=== PATIENT | female | born 1990 | race Caucasian/White ===

== ENCOUNTER 2025-05-01 07:24 | Emergency (ER) | payer BC, SELFPAY ==
[2025-05-01 07:24] VITALS: BP 122/109; PULSE 94; RESP 18; TEMP 36.9; O2SAT 100; BMI 29.9
--- NOTE | 2025-05-01 07:38 | ED.VIS.FEGU ---
HPI HPI - Female History of Present Illness Chief Complaint: Vag Bleeding Detail of Chief Complaint: Mild cramping. Informant: patient and spouse/S.O. Pain Pain: Positive for Pelvic Pain Onset: Today Timing: Intermittent Quality: Positive for Cramping Current Severity: Mild Maximum Severity: Mild Bleeding Issue: Positive for Vaginal bleeding and Passing clots Onset: Today Context: Gradual Onset Timing: Intermittent Associated Symptoms Associated Symptoms: Negative for Dysuria or Frequency Test: Positive Sexually: Positive for Active Control: No control P: 0 Ab: 1 Narrative Narrative: 34-year-old female Ab1 with that being a recent miscarriage around March 25. Sees the [facility] group locally. Blood type is a positive. States that she has recently started having vaginal bleeding small clots with maybe passage of tissue. Denies any fever. Mild pelvic cramping with the bleeding. 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 No prior abdominal surgeries. No dysuria. Prior similar symptoms: Yes Recent Illness/Hospitalization: No PFSH PFSH Medical History no medical history no medical history Home Medications ?Medication ?Instructions ?Recorded ?Last Taken ?Type desogestrel 0.15 mg-ethinyl 1 tab PO DAILY #84 tabs 02/14/18 Unknown Rx estradiol 0.03 mg tablet ([place]) Allergy/AdvReac Type Severity Reaction Status Date / Time No Known Allergies Allergy Verified 05/01/25 07:26 Family History no significant family his Surgical History no surgical history Social History Smoking Status: Never smoker ROS ROS ED ROS Narrative Pelvic cramping. Bleeding. Constitutional Constitutional ED: Denies chills or fever(s) Eyes Eyes: Denies blurry vision ENT ENT ED: Denies ear pain Cardiovascular Cardiovascular: Denies chest pain Respiratory/Chest Respiratory/Chest: Denies cough or dyspnea Gastrointestinal Gastrointestinal: Reports diarrhea; Denies abdominal pain, constipation, melena, nausea or vomiting Genitourinary Genitourinary ED: Denies dysuria or hematuria Musculoskeletal Musculoskeletal: Denies arthralgias Integumentary Denies abscess Neurologic Neurologic: Denies headache(s) Psychiatric Psychiatric: Denies anxiety or depression Endocrine Endocrinology: Denies heat intolerance Hematologic/Lymphatic Hematologic/Lymphatic: Denies easy bleeding, easy bruising or lymphadenopathy Allergic/Immunologic Allergic/Immunologic ED: Denies mouth swelling, tongue swelling or urticaria EXAM Physical Exam Narrative Exam Narrative: 34-year-old female sitting upright in bed no acute distress. at bedside. Vital signs are stable afebrile. H EENT exam pupils round react to light. Moist mucous membranes. Neck nontender. Back nontender. Lungs clear to auscultation bilaterally. Heart regular rhythm rate about 94 no murmur. Chest wall ribs nontender. Abdomen soft, nontender, nondistended, normal bowel sounds without peritoneal signs. No tenderness. Moving all 4 extremities. Normal strength. Nontender no edema. Neurologically she is awake alert. Answering questions following commands. No focal motor deficits Const Vital Signs: 05/01/25 07:24 05/01/25 09:24 Temperature 98.4 F Temperature Source Oral Pulse Rate 94 63 Respiratory Rate 18 16 Blood Pressure 122/109 H 105/61 Blood Pressure Mean 113 75 Pulse Ox 100 100 Oxygen Delivery Method Room Air Room Air MDM MDM MDM Narrative Medical decision making narrative: 34-year-old female Ab1 with that being a miscarriage around March 25 a little over a month ago. Reportedly has a blood type of a positive from labs she had done at the [facility]. Today is having spotting small clots and passage of tissue. No fever. She does not feel ill. Pelvic exam will be done and ultrasound and labs. Repeat exam around 8:55 AM patient doing well. With a nurse present in the room that pelvic exam and bimanual exam. External exam is unremarkable. Pelvic exam with a speculum showed a small amount of older blood dark blood in the vaginal vault. Currently no active bleeding. Os closed. No lesions. No discharge. On bimanual exam she had no significant uterine or adnexal tenderness and no obvious mass. No signs of endometritis. We discussed her lab test. They should be taking her to ultrasound soon. Repeat exam patient is doing well at around 10:20 AM. Discussed her ultrasound results with her and her . They are comfortable being discharged home. Follow-up with her MANAGER BAKERY. Motrin and Tylenol for any discomfort. Return if she is feeling worse or develops a fever. History & Record Review Discussion w/independent historian: Patient and Family Additional record(s) reviewed:: Prior labs Lab Data Attestation: I reviewed the patient's lab results. Lab results narrative: CBC unremarkable. White count of 5.1. H&H 13.9 and 41. Platelets 291. Chemistries unremarkable gap 10. Normal BUN and creatinine. Glucose 93. Serum test negative. Pelvic ultrasound shows a small amount of fluid in the endometrial canal. Small right ovarian cyst of 3 cm. No retained products. Labs: Laboratory Results - last 24 hr 05/01/25 07:46 WBC 5.1 RBC 4.52 Hgb 13.9 Hct 41.9 MCV 92.7 MCH 30.8 MCHC 33.2 RDW Std Deviation 39.9 RDW Coeff of Mirela 11.8 Plt Count 291 MPV 8.5 Immature Gran % (Auto) 0.400 Neut % (Auto) 60.8 Lymph % (Auto) 27.7 Ashley % (Auto) 7.3 Eos % (Auto) 3.2 Baso % (Auto) 0.6 Absolute Neuts (auto) 3.1 Absolute Lymphs (auto) 1.40 Nucleated RBC % 0 Sodium 138 Potassium 3.8 Chloride 104 Carbon Dioxide 23.7 Anion Gap 10 BUN 14 Creatinine 0.75 Estim Creat Clear Calc 106.60 Est GFR (MDRD) Non-Af 107 BUN/Creatinine Ratio 18.6 Glucose 93 Calcium 8.7 Serum , Qual NEGATIVE Radiography Diagnostic Testing: Clinical Impression(s) from Imaging Studies Transvaginal US 05/01/25 08:36 IMPRESSION: Small amount of fluid in the endocervical canal. 3.2 cm 3.4 cm x 3.2 cm right ovarian cyst. Reading Location: [place] [id number] Discharge Plan Triage Chief Complaint: Vag Bleeding ED Provider: Petey Capone Dx/Rx/DC Orders Clinical Impression: Vaginal bleeding, Hx of one miscarriage Prescriptions: No Action desogestrel-ethinyl estradiol [[place]] 0.15-0.03 mg tablet 1 tab PO DAILY Qty: 84 1RF Primary Care Provider: Vonda Nicholson Referrals: Gisela Branch MD [Med Staff - Active Staff, Obstetrics-Gynecology (OBGYN)] - 3-5 Days if not improving NOT,DEFINED [Non-Staff, None] Activity Restrictions/Additional Instructions: Motrin and Tylenol for pain. Follow-up with your MANAGER BAKERY. Your blood work looked good today. Your test was negative. Your ultrasound looked good with a small right ovarian cyst. Print Language: Tajik Disposition Disposition: Home, Self Care
[2025-05-01 07:53] LABS: Hematocrit 41.9 % (37-47); Hemoglobin 13.9 g/dL (12.0-15.0); Immature Granulocytes Count 0.020 X10^3/uL (0.0-0.0); Mean Corp Hgb Conc 33.2 g/dL (32-36); Mean Corpuscular Volume 92.7 fL (81-99); Mean Platelet Vol. 8.5 fl (6.2-12.0); NRBC Flagged by Analyzer 0 % (0-5); Platelet Count 291 K/mm3 (150-450); RBC Distribution Width CV 11.8 % (11.6-14.6); RBC Distribution Width SD 39.9 fl (35.1-43.9); Red Blood Count 4.52 M/mm3 (4.2-5.4); White Blood Count 5.1 K/mm3 (4.4-11.0)
--- OUTSIDE RECORDS SUMMARY | 2025-05-01 07:55 | XMS RPT_ITS | CCD ---
Author Organization [facility] CliniSymi Care Team Providers Care Shipping Specialist Name Role Phone Sylvie CHIEF OPERATOR SYNTHESIS, Ida Valderrama Unavailable [phone] Ida Mercer Attending Unavailable Jhonny Hernandes Referring Unavailable Sandip CHRISTENSEN, Yara Primary Care Provider Sandip CHRISTENSEN, Yara Primary Care Provider Sandip CHRISTENSEN, Yara Primary Care Provider Azalea Infante PA-C Unavailable Older DIRECTOR OF MATH.SENIOR SQL DATABASE DEVELOPER, Opal Unavailable Janet Lewis PA-C Unavailable SANDIP CHRISTENSEN, DR YARA Menjivar Primary Care Physician DR YARA OROPEZA MD Primary Care Unavailabl e SYDNI RUGGIERO Attending Unavailable GANTA, YARA Primary Care Unavailable BEBETO, GERMAINE Referring Unavailable GANTA, YARA Primary Care Unavailable BEBETO, GERMAINE Referring Unavailable GANTA, YARA Primary Care Unavailable TERESAANGELA NEGRON Attending Unavailable GANTA, YARA Primary Care Unavailable TEREAS, ANGELA Referring Unavailable GANTA, YARA Primary Care Unavailable TERESA, ANGELA Referring Unavailable GANTA, YARA Referring Unavailable GANTA, YARA Primary Care Unavailable GANTA, YARA Attending Unavailable GANTA, YARA Primary Care Unavailable GANTA, YARA Attending Unavailable GANTA, YARA Primary Care Unavailable TAMARA HOFFMAN Attending Unavailable GANTA, YARA Primary Care Unavailable GANTA, YARA Primary Care Unavailable GANTA, YARA Attending Unavailable BEBETO, GERMAINE Attending Unavailable GANTA, YARA Primary Care Unavailable BEBETO, GERMAINE Referring Unavailable GANTA, YARA Primary Care Unavailable BEBETO, GERMAINE Referring Unavailable GANTA, YARA Primary Care Unavailable Medications Current Medications Medication Drug Class(es) Dates Sig (Normalized) Sig (Original) benzonatate 100 mg oral capsule (1 source) Non-narcotic Antitussive Start: 08-10-2024 take 1 capsule by mouth every eight hours as needed benzonatate (TESSALON PERLE) 100 mg capsule Take 1 capsule by mouth three times a day as needed. 30 capsule 1 08/10/2024 Active benzoyl peroxide 0.05 mg/mg / clindamycin phosphate 0.012 mg/mg topical gel (4 sources) Lincosamide Antibacterial Start: 12-21-2023 Clindamycin-Benzo yl Peroxide 1.2 %(1 % base) -5 % gel Apply once daily to all areas of acne at bedtime. will bleach clothes until dry. 12/21/2023 Active cephalexin 500 mg oral capsule (1 source) Cephalosporin Antibacterial Start: 12-28-2022 End: 01-02-2023 take 1 capsule by mouth twice daily cephALEXin (KEFLEX) 500 mg capsule Take 1 capsule by mouth twice daily for 5 days. 10 capsule 0 12/28/2022 01/02/2023 Active Comment on above: Take 1 capsule by [facility] twice daily for 5 days. loratadine 10 mg oral tablet (1 source) Start: 08-10-2024 take 1 tablet by mouth once daily loratadine (CLARITIN) 10 mg tablet Take 1 tablet by mouth once daily. 30 tablet 11 08/10/2024 Active sertraline 50 mg oral tablet (14 sources) Serotonin Reuptake Inhibitor Start: 07-16-2024 take 1 tablet by mouth once daily sertraline (ZOLOFT) 50 mg tablet Take 1 tablet by mouth once daily. 90 tablet 1 07/16/2024 Active Start: 02-16-2017 ZOLOFT 25 MG T ABS SERTRALINE HCL [id number] Ida Mercer CHIEF OPERATOR SYNTHESIS Start: 02-16-2017 ZOLOFT 50 MG T ABS SERTRALINE HCL [id number] Ida Mercer CHIEF OPERATOR SYNTHESIS triamcinolone acetonide 1 mg/ml topical cream (2 sources) Corticosteroid Start: 10-25-2021 End: 11-04-2021 triamcinolone acetonide (KENALOG) 0.1 % cream Indications: Rhus dermatitis Apply 1 application to affected area three times daily for 10 days. Apply sparingly to area for rash/itching. 80 g 0 10/25/2021 11/04/2021 Active Comment on above: Apply 1 application to affected area three times daily for 10 days. Apply sparingly to area for rash/itching. Completed/Discontinued Medications Medication Drug Class(es) Dates Sig (Normalized) Sig (Original) azelaic acid 0.15 mg/mg topical gel (20 sources) Start: 10-01-2022 End: 07-16-2024 Azelaic Acid 15 % gel Indications: Acne, unspecified acne type Apply to the affected areas once daily 50 g 2 10/01/2022 07/16/2024 Discontinued Start: 08-08-2019 End: 10-01-2022 Azelaic Acid 15 % gel Apply to the affected areas once daily 0 08/08/2019 10/01/2022 Discontinued Comment on above: Apply to the affecte d areas once daily DESOGESTREL-ETHINYL ESTRADIOL (19 sources) Progestin, Estrogen Start: 02-16-2017 take 1 tablet by mouth once daily EMOQUETTE 0.15-30 MG-MCG TABS One tablet by mouth daily DESOGESTREL-ETHINYL ESTRADIOL [id number] Ida Mercer CHIEF OPERATOR SYNTHESIS Start: 02-16-2017 take 1 tablet by sander th once daily EMOQUETTE 0.15-30 MG-MCG TABS One tablet by mouth daily DESOGESTREL-ETHINYL ESTRADIOL [id number] Ida Mercer CHIEF OPERATOR SYNTHESIS Start: 02-16-2017 take 1 tablet by sander th once daily EMOQUETTE 0.15-30 MG-MCG TABS One tablet by mouth daily DESOGESTREL-ETHINYL ESTRADIOL [id number] Ida Mercer CHIEF OPERATOR SYNTHESIS Start: 01-25-2017 take 1 tablet by sander th once daily APRI 0.15-30 MG-MCG TABS One tablet by mouth daily DESOGESTREL-ETHINYL ESTRADIOL [id number] Ida Mercer CHIEF OPERATOR SYNTHESIS Start: 01-25-2017 End: 02-16-2017 take 1 tablet by mouth once daily APRI 0.15-30 MG-MCG TABS One tablet by mouth daily DESOGESTREL-ETHINYL ESTRADIOL [id number] Ida Mercer CHIEF OPERATOR SYNTHESIS Start: 01-25-2017 End: 02-16-2017 take 1 tablet by mouth once daily APRI 0.15-30 MG-MCG TABS One tablet by mouth daily DESOGESTREL-ETHINYL ESTRADIOL [id number] Ida Mercer CHIEF OPERATOR SYNTHESIS Start: 01-25-2017 take 1 tablet by sander th once daily APRI 0.15-30 MG-MCG TABS One tablet by mouth daily DESOGESTREL-ETHINYL ESTRADIOL [id number] Ida Mercer CHIEF OPERATOR SYNTHESIS doxycycline hyclate 20 mg oral tablet (20 sources) Tetracycline-class Drug Start: 02-07-2023 End: 07-16-2024 take 1 tablet by mouth twice daily doxycycline 20 mg tablet Take 1 tablet by mouth twice daily. Ordered by dermatology 02/07/2023 07/16/2024 Discontinued Start: 03-27-2020 End: 06-18-2023 take 1 tablet by mouth once daily doxycycline 20 mg tablet Take 1 tablet by mouth once daily. 90 tablet 3 06/18/2022 06/18/2023 Active Comment on above: Take 1 tablet by sander once daily. Take 1 tablet by sander twice daily. Ordered by dermatology 21 day ethinyl estradiol 0.539660 mg/hr / etonogestrel 0.005 mg/hr vaginal system (5 sources) Progestin, Estrogen Start: 1 End: 3 Etonogestrel-Ethinyl Estradiol (NUVARING) 0.12-0.015 mg/24 hr vaginal ring Use 1 Each vaginally as directed. 1 Each 3 04/03/2021 06/18/2022 Discontinued Comment on above: Use 1 Each vaginally as directed. FLUoxetine 20 mg oral capsule (18 sources) Serotonin Reuptake Inhibitor Start: 3 End: 5 take 1 capsule by mouth once daily FLUoxetine (PROZAC) 20 mg capsule Take 1 capsule by mouth once daily. 90 capsule 3 02/07/2023 07/16/2024 Discontinued Start: 07-30-2022 take 1 capsule by mo sch once daily FLUoxetine (PROZAC) 20 mg capsule Take 1 capsule by mouth once daily. 30 capsule 5 07/30/2022 Active Start: 06-18-2022 End: 07-30-2022 take 1 capsule by mouth once daily FLUoxetine (PROZAC) 10 mg capsule Take 1 capsule by mouth once daily. 30 capsule 5 06/18/2022 07/30/2022 Discontinued Comment on above: Take 1 capsule by mo [facility] once daily. ivermectin 10 mg/ml topical cream (20 sources) Antiparasitic, Pediculicide Start: 1 End: 5 SOOLANTRA 1 % 06/18/2020 08/10/2024 Discontinued multivitamin tablet (5 sources) Start: 1 End: 3 take 1 tablet by mouth once daily multivitamin tablet Indications: Annual physical exam Take 1 tablet by mouth once daily. 0 04/03/2021 06/18/2022 Discontinued Start: 04-03-2021 take 1 tablet by sander once daily multivitamin tablet Indications: Annual physical exam Take 1 tablet by mouth once daily. 0 04/03/2021 Active Comment on above: Take 1 tablet by sander th once daily. predniSONE 10 mg oral tablet (7 sources) Start: 01-20-2024 End: 08-10-2024 predniSONE (DELTASONE) 10 mg tablet Take 4 tabs daily for 3 days, then 2 tabs daily for 3 days, then 1 tab daily for 3 days with food. 21 tablet 01/20/2024 08/10/2024 Discontinued Start: 11-19-2023 End: 11-26-2023 take 4 tablets by mouth once daily, then take 2 tablets by mouth once daily, then take 1 tablet by mouth once daily predniSONE (DELTASONE) 10 mg tablet Indications: Contact dermatitis due to plant Take 4 tablets by mouth once daily for 3 days, THEN 2 tablets once daily for 3 days, THEN 1 tablet once daily for 1 day. Take with food.. 19 tablet 0 11/19/2023 11/26/2023 Active Start: 10-25-2021 End: 11-06-2021 predniSONE (DELTASONE) 10 mg tablet Indications: Rhus dermatitis Take 4 tabs daily x 3 days, then 3 tabs x 3 days, 2 tabs x 3 days, then 1 tab x3 days with food. 30 tablet 0 10/25/2021 11/06/2021 Active Comment on above: Take 4 tabs daily x 3 days, then 3 tabs x 3 days, 2 tabs x 3 days, then 1 tab x3 days with food. spironolactone 50 mg oral tablet (20 sources) Aldosterone Antagonist Start: 08-08-19 End: 07-16-19 25 take 1 tablet by mouth once daily spironolactone (ALDACTONE) 50 mg tablet Take 1 tablet by mouth once daily. 90 tablet 3 06/18/2022 07/16/2024 Discontinued Comment on above: Take 1 tablet by sander once daily. Problems Active Problems Problem Classification Problem Date Documented Date Episodic/Chronic Abdominal pain (2 sources) Pain in female pelvis; Translations: [Pelvic and perineal pain] 07-22-2023 Episodic Allergic reactions (2 sources) Contact dermatitis due to Genus Toxicodendron; Translations: [Unspecified contact dermatitis due to plants, except food] Episodic Anxiety disorders (20 sources) Mixed anxiety and depressive disorder; Translations: [Anxiety disorder, unspecified] Onset: 07-16-2015 08-18-2016 Chronic Asthma (20 sources) Asthma; Translations: [Unspecified asthma, uncomplicated] Onset: 11-29-2011 11-29-2011 Chronic Immunizations and screening for infectious disease (1 source) Tuberculosis screening status; Translations: [Encounter for screening for respiratory tuberculosis] Episodic Malaise and fatigue (1 source) Fatigue; Translations: [Other fatigue] 08-08-2023 Episodic Menstrual disorders (9 sources) Irregular periods; Translations: [Mid-cycle bleeding] Onset: 02-16-2017 02-16-2017 Chronic Mood disorders (1 source) Moderate major depression, single episode; Translations: [Major depressive disorder, single episode, moderate] 08-10-2024 Chronic Nonspecific chest pain (2 sources) Chest pain; Translations: [Chest pain, unspecified] Onset: 02-19-2025 Episodic Other aftercare (3 sources) Patient encounter status; Translations: [Other shelter (current) drug therapy] Episodic Other circulatory disease (20 sources) Raynaud's phenomenon; Translations: [Raynaud's syndrome without gangrene] Onset: 05-05-2019 05-05-2019 Chronic Other complications of (1 source) with inconclusive viability, not applicable or unspecified; Translations: [Encounter to determine viability of , single or unspecified fetus ([facility])] Onset: 03-23-2025 Episodic Other complications of (1 source) Missed ; Translations: [Missed (HCC)] Onset: 03-21-2025 Episodic Other infections; including parasitic (1 source) History of human papilloma virus infection; Translations: [Personal history of other infectious and parasitic diseases] 07-22-2023 Episodic Other and delivery including normal (3 sources) Normal ; Translations: [Encounter for supervision of normal , unspecified, unspecified trimester] Onset: 02-19-2025 Episodic Other skin disorders (4 sources) Acne; Translations: [Acne, unspecified] Episodic Other skin disorders (1 source) Eruption; Translations: [Rash and other nonspecific skin eruption] 01-20-2024 Episodic Other upper respiratory disease (20 sources) Allergic rhinitis; Translations: [Allergic rhinitis, unspecified] Onset: 11-29-2011 11-29-2011 Chronic Other upper respiratory infections (1 source) Acute upper respiratory infection; Translations: [Acute upper respiratory infection, unspecified] 08-10-2024 Episodic Skin and subcutaneous tissue infections (1 source) Paronychia of finger of right hand; Translations: [Cellulitis of right finger] 12-28-2022 Episodic Spondylosis; intervertebral disc disorders; other back problems (1 source) Low back pain; Translations: [Low back pain, unspecified back pain laterality, unspecified chronicity, unspecified whether sciatica present] Episodic Spontaneous (1 source) Complete or unspecified spontaneous without complication; Translations: [SAB (spontaneous ) ([facility])] Onset: 03-28-2025 Episodic Unclassified (4 sources) Cervical smear biopsy taken ; Translations: [Encounter for screening for malignant neoplasm of cervix] Onset: 02-16-2017 02-16-2017 Unclassified (4 sources) Venereal disease screening ; Translations: [Encounter for screening for infections with a predominantly sexual mode of transmission] Onset: 02-16-2017 02-16-2017 Unclassified (4 sources) Gynecologic examination ; Translations: [Encounter for gynecological examination (general) (routine) without abnormal findings] Onset: 02-16-2017 02-16-2017 Unclassified (1 source) No current problems or disability 01-25-2017 Unclassified (1 source) APPOINTMENT CANCELLED Viral infection (2 sources) Viral disease; Translations: [Viral infection, unspecified] Episodic Past or Other Problems Problem Classification Problem Date Documented Da te Episodic/Chronic Other aftercare (1 source) Other termite control service representative (current) drug therapy; Translations: [Medication management] Onset: 05-29-2024 Episodic Other lower respiratory disease (8 sources) Cough; Translations: [Cough] Onset: 08-07-2007 Resolved: 08-18-2016 08-18-2016 Episodic Ovarian cyst (20 sources) Hemorrhagic cyst of ovary; Translations: [Unspecified ovarian cyst, unspecified side] Onset: 07-30-2020 07-30-2020 Episodic Results Test Name Value Interpretation Reference Range Facility B-HCG SerPl-aCncon 5 HCG.beta subunit Qn 300.9 m[IU]/mL High <5.0 C [facility] Comment on above: Order Comment: Speci men Type: BLOOD SPECIMENOrdering Facility: [facility] Address: [address] [place] [address] Result Comment: CELIA TITATIVE HCG NORMAL RANGES Weeks of Gestation (Weeks Since LMP) 3 Weeks (5.8-71.2 mIU/mL) 4 Weeks (9.5-750 mIU/mL) 5 Weeks (217-7138 mIU/mL) 6 Weeks (158-90251 mIU/mL) 7 Weeks (3697-434745 mIU/mL) 8 Weeks (79607-140679 mIU/mL) 9 Weeks (32063-275486 mIU/mL) 10 Weeks (25905-312479 mIU/mL) 12 Weeks (94799-172566 mIU/mL) Referenced to 4th IS of [facility] Performed By: #### 2 1198-7 ####[facility] LABCLIA [id number] [place] [address] [place] B-HCG SerPl-aCncon 5 HCG.beta subunit Qn 639.2 m[IU]/mL High <5.0 C [facility] Comment on above: Order Comment: Speci men Type: BLOOD SPECIMENOrdering Facility: [facility] Address: [address] [place] [address] Result Comment: CELIA TITATIVE HCG NORMAL RANGES Weeks of Gestation (Weeks Since LMP) 3 Weeks (5.8-71.2 mIU/mL) 4 Weeks (9.5-750 mIU/mL) 5 Weeks (217-7138 mIU/mL) 6 Weeks (158-97491 mIU/mL) 7 Weeks (3697-988761 mIU/mL) 8 Weeks (12968-110114 mIU/mL) 9 Weeks (65785-660931 mIU/mL) 10 Weeks (24322-576385 mIU/mL) 12 Weeks (43779-379855 mIU/mL) Referenced to 4th IS of [facility] Performed By: #### 2 1198-7 ####[facility] LABCLIA [id number] [place] [address] [place] B-HCG [facility] 5 HCG.beta subunit Qn 5111.0 m[IU]/mL High <5.0 [facility] Comment on above: Order Comment: Speci men Type: BLOOD SPECIMENOrdering Facility: [facility] Address: [address] [place] [address] Result Comment: CELIA TITATIVE HCG NORMAL RANGES Weeks of Gestation (Weeks Since LMP) 3 Weeks (5.8-71.2 mIU/mL) 4 Weeks (9.5-750 mIU/mL) 5 Weeks (217-7138 mIU/mL) 6 Weeks (158-44900 mIU/mL) 7 Weeks (3697-112208 mIU/mL) 8 Weeks (97428-492625 mIU/mL) 9 Weeks (18856-919109 mIU/mL) 10 Weeks (36736-090297 mIU/mL) 12 Weeks (39377-813818 mIU/mL) Referenced to 4th IS of NIBSC Performed By: #### 2 1198-7 ####[facility] LABCLIA [id number] [place] [address] [place] TYPE + SCREEN PRENATALon ABO A Normal [facility] Comment on above: Order Comment: Speci men Type: BLOOD SPECIMENOrdering Facility: [facility] Address: [address] [place] [address] Performed By: #### T SPN ####[facility] LABCLIA [id number] [address] OF [place] Rh Nom (Bld) Positive Normal [facility] Comment on above: Order Comment: Speci men Type: BLOOD SPECIMENOrdering Facility: [facility] Address: [address] [place] [address] Performed By: #### T SPN ####[facility] LABCLIA [id number] [address] TYPE AND SCREEN EXPIRATION 03/27/2025 00:59 Normal [facility] Comment on above: Order Comment: Speci men Type: BLOOD SPECIMENOrdering Facility: [facility] Address: [address] [place] [address] Performed By: #### T SPN ####[facility] LABCLIA [id number] [place] [id number] [facility] Saundra 03-22-2025 CNPN Telephone (OBGYWM) TOVA BRENNAN ([id number]) 1990 F Date Time Provider Department 03/22/25 GERMAINE CONTRERAS OBSILWMarilin During your visit today, we recorded the following information about you: Franny Leyva RN 03/22/2025 1:36 PM Signed From: Germaine Contreras APRN.SENIOR SQL DATABASE DEVELOPER Sent: 03/22/2025 7:19 AM EDT To: [facility] Ob-Director Operations Broadcast Pool Please let the pt know that her quant levels are falling and consistent with a missed AB.I still want her to have levels done tomorrow. Is she having anymore bleeding or cramping? EN Neil Tara, RN 03/22/2025 1:36 PM Signed Bere Woodard RN 03/22/25 1:21 PM Note I called patient and she is now having BRB when wipes and increased clotting (small strands of clots). No type and RH on file. Do you wish to add order for type and RH? Patient given miscarriage/ectopic precautions. To go to ER this weekend if saturating a pad every hour for 2 , increased pain or PRN problems. She has appt for lab draw (quant) tomorrow-leave note open for results Bere Woodard RN 03/22/2025 1:47 PM Signed Patient aware that she has 2 lab tests to be drawn type and Rh and Quant HCG ordered for tomorrows draw. Order linked to appt. Franny Leyva RN 03/25/2025 10:20 AM Signed Germaine Contreras APRN.CNP to [facility] Ob-Director Operations Broadcast Pool (Selected Message) 03/25/25 7:33 AM Result Note Quants continue to fall. Please have pt follow up with a doctor at the end of this week. Germaine Contreras APRN.CNP HCG QUANTITATIVE; TYPE + SCREEN Franny Leyva RN 03/25/2025 10:20 AM Signed Pt notified and appt scheduled with LINDA 03/28/25. Pt states that yesterday she experienced cramping AND bleeding consistently AND used tylenol AND heating pad for comfort. Passed tissue size of buckeye- in toilet bowl AND pain then decreased. States an hour later she experienced terrible cramps/ was nauseated, passed more smaller clots in the toilet and took ibuprofen and was able to sleep. She then woke up and her pad was filled with blood. States she just feels achy now. Pt states she woke up around 7am this AM and hasn't had to change her pad since. Reviewed If her bleeding becomes heavy to where she is saturating a pad (front to back, side to side) in one hour or less for two hours or more,she develops shortness of breath, chest pain, dizziness, to please call the office or go to the nearest Emergency Room. Encouraged Pt to drink plenty of fluids, eat, and rest today as much as she is able. Pt voiced understanding. Franny Leyva RN Allergies As of Date: 03/22/2025 (No Known Allergies) Date Reviewed: 03/19/2025 Reviewed by: Sylvia Mathis LPN - Fully Assessed Reason for Visit: HCG levels [Other] Prescriptions as of 03/25/2025 - vit,anshul 74/iron/folic ( VITAMIN 1+1 ORAL) Take by mouth once daily. - Clindamycin-Benzoyl Peroxide 1.2 %(1 % base) -5 % gel Apply once daily to all areas of acne at bedtime. will bleach clothes until dry. Problem List As Of Date 03/22/2025 Noted Resolved Cough [R05.9] 08/07/2007 08/18/2016 Allergic rhinitis [J30.9] 11/29/2011 Asthma [J45.909] 11/29/2011 Anxiety and depression [F41.9, F32.A] 07/16/2015 Raynaud's phenomenon without gangrene [I73.00] 05/05/2019 Hemorrhagic ovarian cyst [N83.209] 07/30/2020 Significant discrepancy between uterine size an*03/19/2025 Paratubal cyst [N83.8] 03/19/2025 Hemorrhage of corpus luteum cyst of left ovary *03/19/2025 Encounter Status:Closed by FRANNY LEYVA on 03/25/25 Normal [facility] B-HCG SerPl-aCncon 5 HCG.beta subunit Qn 7847.0 m[IU]/mL High <5.0 [facility] Comment on above: Order Comment: Speci men Type: BLOOD SPECIMENOrdering Facility: [facility] Address: [address] [place] [address] Result Comment: CELIA TITATIVE HCG NORMAL RANGES Weeks of Gestation (Weeks Since LMP) 3 Weeks (5.8-71.2 mIU/mL) 4 Weeks (9.5-750 mIU/mL) 5 Weeks (217-7138 mIU/mL) 6 Weeks (158-25159 mIU/mL) 7 Weeks (3697-389077 mIU/mL) 8 Weeks (26193-046167 mIU/mL) 9 Weeks (46517-423431 mIU/mL) 10 Weeks (51095-947108 mIU/mL) 12 Weeks (23759-546250 mIU/mL) Referenced to 4th IS of [facility] Performed By: #### 2 1198-7 ####[facility] LABCLIA [id number] [place] [address] [place] B-HCG SerPl-aCncon [place] [address].0 m[IU]/mL High <5.0 [facility] Comment on above: Order Comment: Speci men Type: BLOOD SPECIMENOrdering Facility: [facility] Address: [address] [place] [address] Result Comment: CELIA TITATIVE HCG NORMAL RANGES Weeks of Gestation (Weeks Since LMP) 3 Weeks (5.8-71.2 mIU/mL) 4 Weeks (9.5-750 mIU/mL) 5 Weeks (217-7138 mIU/mL) 6 Weeks (158-44621 mIU/mL) 7 Weeks (3697-709229 mIU/mL) 8 Weeks (85923-639064 mIU/mL) 9 Weeks (60022-004024 mIU/mL) 10 Weeks (49249-826862 mIU/mL) 12 Weeks (98602-112269 mIU/mL) Referenced to 4th IS of [facility] Performed By: #### 2 1198-7 ####[facility] LABCLIA [id number] [place] [address] [place] CNOVon 02-22-2025 CNOV Office Visit (INTMWS) TOVA BRENNAN ([id number]) 1990 F Date Time Provider Department 02/22/25 11:20 AM YARA OROPEZA During your visit today, we recorded the following information about you: Pulse Respiration Blood pressure Weight 81/minute 16/minute 97/64 75.8 kg Yara Oropeza MD 02/22/2025 11:50 AM Signed We discussed your : - Congratulations on your ! You are currently six weeks along. - Continue taking your vitamins daily. Ensure they include DHA and are methylated, as these are important for your baby's development. - Maintain a healthy diet with plenty of fruits, vegetables, and protein. Your current diet, including avocados, eggs, and HelloFresh meals, is a good foundation. - Walking is safe and encouraged, but avoid overexertion. Rest as needed, especially during this early stage when fatigue is common. - Minimize stress as much as possible, as it can impact both you and your baby. Engage in activities that help you relax and feel supported. We discussed your chest pain and tenderness: - Your recent ER visit ruled out any serious cardiac issues. Your labs, chest X-ray, and other tests were normal. - Based on your symptoms and physical exam, you likely have costochondritis, which is inflammation of the cartilage connecting your ribs to your sternum. This may be related to positional changes, -related hormonal changes, or other factors. - To manage the pain: - Apply ice packs to the tender areas to reduce inflammation. - You may use [id number] topical treatments like Bengay or a mild steroid cream to help with discomfort. - Avoid NSAIDs, Tylenol, or other oral pain medications during unless explicitly recommended. - If the pain worsens or becomes constant, please contact our office. We discussed your recent chest X-ray: - The X-ray performed during your ER visit was normal. However, since you are , it is recommended to confirm with the ER team that proper shielding was used during the procedure. This is a precautionary step to ensure safety for you and your baby. Additional instructions: - Continue attending therapy as it seems to be helpful for your mental health. - If you experience any new or concerning symptoms, such as severe or persistent pain, shortness of breath, or other unusual changes, please contact our office immediately. Follow-up: - No additional tests or imaging are needed at this time. - Please schedule your first visit if you have not already done so. - If you have any questions or concerns, feel free to reach out to our office. Take care, and congratulations again on this exciting new chapter! Yara Oropeza MD 02/22/2025 12:33 PM Signed Reason for Visit Follow up HPI Maribel is a 34-year-old female, , presenting with chest pain. Maribel reports an acute onset of severe, squeezing chest pain that began while showering in the morning. The initial episode lasted approximately 10 minutes and was intense enough to bring her to the floor in tears. The pain persisted as a pressure sensation throughout the day and recurred with increased intensity when she moved a desk at work. Following a phone consultation, she was advised to go to the ER, where she underwent a series of tests, including a chest X-ray, which were reportedly normal. She continues to experience moderate, intermittent chest pain that is movement-induced, particularly with bending over, twisting, or reaching. The pain is described as a squeezing sensation and is not consistently reproducible with the same movements. She denies any other joint pain but does report breast tenderness and swelling. Maribel is currently 6 weeks , a first-time confirmed by a positive urine test in the ER. She has not been taking vitamins prior to the but has started them recently. Her diet is described as healthy, with a focus on vegetables, fruits, and lean proteins. She denies taking any multivitamins. She reports feeling more tired than usual and is sleeping a lot. She denies any history of anxiety or depression and is not on any medications for these conditions. She has been for 2 years and is in the process of buying a house. She reports some stress related to the and upcoming move but describes her overall mood as excited. SOCIAL HISTORY[1] Past medical history, appointments, medications, allergies reviewed. Pertinent Lab/Diagnostic Studies are reviewed and discussed today Current Outpatient Medications: Clindamycin-Benzoyl Peroxide 1.2 %(1 % base) -5 % gel Health Maintenance Influenza Vaccine(1) Covid-19 Vaccine(5 - 2025-26 season)@ Review Of Systems Constitutional: (+) increased sleepiness Ears/Nose/Mouth/Thro at: (-) smell intolerance Breast: (+) breast te (more content not included)... Normal [facility] Office Visit (OBGYWM) TOVA BRENNAN ([id number]) 1990 F Date Time Provider Department 02/22/25 10:00 AM TAMARA HOFFMAN OBNAIDA During your visit today, we recorded the following information about you: Blood pressure Weight Last Period 121/79 75.8 kg 01/09/25 Tamara Hoffman APRN.SENIOR SQL DATABASE DEVELOPER 02/22/2025 10:32 AM Signed Obstetrics and Gynecology [place] [employer]RARIAN Visit Subjective Recording using [employer] software for draft documentation of the visit was discussed with the patient/authorized business development representative; all questions welcomed and answered. Patient/authorized business development representative agreed to proceed CHIEF COMPLAINT: The patient is a 34-year-old female presenting for positive test at home and in ER HPI: The patient is a 34-year-old female presenting for confirmation of . accompanied by - Took two home tests last week, both of which were positive. - Last menstrual period was on January 09. - Has been engaging in unprotected intercourse for a couple of years without conception. - This is her first . - Currently using clindamycin peroxide gel for acne, which was prescribed by her opinion polls survey worker as a safe option during . - Taking vitamins containing folate. HISTORY: OB History Gravida0 Para0 Term0 Preterm0 AB0 Living0 SAB0 IAB0 Ectopic0 Multiple0 Live Births0 Director Operations Broadcast History LMP: 01/09/2025 (Exact Date), Having periods Age at Menarche: Age at First : Age at Menopause: Director Operations Broadcast History Comments: Sexual Activity: Yes; Male Contraception: Not used PAST MEDICAL HISTORY Diagnosis Date Adjustment disorder with depressed mood 07/15/2008 Allergic rhinitis 11/29/2011 Asthma (HCC) 11/29/2011 Excessive or frequent menstruation Heavy periods Generalized anxiety disorder 07/25/2015 see scanned documents Hemorrhagic ovarian cyst 07/30/2020 right ovary Major depressive disorder 07/25/2015 See scanned documents Other acne PAST SURGICAL HISTORY Procedure Laterality Date NONE FAMILY HISTORY Problem Relation Age of Onset Diabetes Mother Diabetes Maternal Grandmother Coronary Artery Disease Maternal Grandmother Thyroid Maternal Grandmother Cancer Paternal Grandfather lung-smoker Coronary Artery Disease Paternal Grandfather Breast Cancer Paternal Aunt SOCIAL HISTORY[1] Current Outpatient Medications Medication Sig Clindamycin-Benzoyl Peroxide 1.2 %(1 % base) -5 % gel Apply once daily to all areas of acne at bedtime. will bleach clothes until dry. No current facility-administere d medications for this visit. ALLERGIES No Known Allergies REVIEW OF SYSTEMS: Objective SENSITIVE EXAM: Sensitive exam not performed. PHYSICAL EXAM: BP 121/79 Wt 167 lb (75.8kg) LMP 01/09/2025 GENERAL: Alert, pleasant, in no apparent distress PULMONARY: normal inspiratory effort NEURO: alert and oriented x3 Assessment AND Plan ASSESSMENT AND PLAN: 1. test positive (HCC) (Z32.01) - Multiple positive urine tests; LMP 01/09; currently estimated at 6 weeks and 2 days gestation with DARIELA 10/16. - No blood test required to confirm . - Continue current clindamycin/benzoyl peroxide gel as prescribed by opinion polls survey worker; confirmed safe for use during . - Confirmed vitamin contains folate. - Educated on timing and purpose of first OB visit and ultrasound - Refer to OB for new visit and initial ultrasound between 6-8 weeks gestation. . Tamara Hoffman APRN.CNP I spent a total of 20 minutes on the date of the service which included preparing to see the patient, [id number] patient care, completing clinical documentation, obtaining and/or reviewing separately obtained history, performing a medically appropriate examination, and counseling and educating the patient/family/careg iver. [1] Social History Tobacco Use Smoking status: Never Smokeless tobacco: Never Vaping Use Vaping status: Never Used Substance Use Topics Alcohol use: Yes Comment: Occasionally Drug use: No Allergies As of Date: 02/22/2025 (No Known Allergies) Date Reviewed: 02/22/2025 Reviewed by: Tamara Hoffman APRN.CNP - Fully Assessed Reason for Visit: Follow Up [171] Cmt: Primary Visit Diagnosis: test positive ([facility]) [Z32.01] Prescriptions as of 02/22/2025 - Clindamycin-Benzoyl Peroxide 1.2 %(1 % base) -5 % gel Apply once daily to all areas of acne at bedtime. will bleach clothes until dry. Problem List As Of Date 02/22/2025 Noted Resolved Cough [R05.9] 08/07/2007 08/18/2016 Allergic rhinitis [J30.9] 11/29/2011 Asthma [J45.909] 11/29/2011 Anxiety and depression [F41.9, F32.A] 07/16/2015 Raynaud's phenomenon without gangrene [I73.00] 05/05/2019 Hemorrhagic ovarian cyst [N83.209] 07/30/2020 Medications Discontinued During This Encounter Prescriptions - se (more content not included)... Normal [facility] 02-21-2025 LUISITO Telephone (OBGYWM) TOVA BRENNAN ([id number]) 1990 F Date Time Provider Department 02/21/25 TAMARA HOFFMAN During your visit today, we recorded the following information about you: Vangie Andersen LPN 02/21/2025 11:42 AM Signed Left message to call office. Patient is scheduled with Tamara Hoffman 02/22 to confirm . Patient had a positive urine test at the emergency dept on 02/19/2025. Patient needs to schedule initial appointment or schedule with a provider that sees patients. Please confirm what patient is needing to schedule. Allergies As of Date: 02/21/2025 (No Known Allergies) Date Reviewed: 08/10/2024 Reviewed by: Viv Lunsford MA - Fully Assessed Reason for Visit: Appointment [186] Prescriptions as of 02/22/2025 - Clindamycin-Benzoyl Peroxide 1.2 %(1 % base) -5 % gel Apply once daily to all areas of acne at bedtime. will bleach clothes until dry. Problem List As Of Date 02/21/2025 Noted Resolved Cough [R05.9] 08/07/2007 08/18/2016 Allergic rhinitis [J30.9] 11/29/2011 Asthma [J45.909] 11/29/2011 Anxiety and depression [F41.9, F32.A] 07/16/2015 Raynaud's phenomenon without gangrene [I73.00] 05/05/2019 Hemorrhagic ovarian cyst [N83.209] 07/30/2020 Encounter Status:Closed by ROSEMARIE ROBLEDO on 02/22/25 Normal [facility] .Auto Diffon 02-19-2025 Basophil, Absolute 0.0 10 3/mcL Normal 0.0-0.3 [facility] Comment on above: Performed By: #### A DIFF, NEIL CUETO MDW, GFR, CBC, BMP #### [address] [address] Basophils/100 WBC (Bld) 0.6 % Normal 0.0-2.5 [facility] Comment on above: Performed By: #### A DIFF, NEIL CUETO, PAN, GFR, CBC, BMP #### [address] [address] Eosinophil, Absolute 0.1 10 3/mcL Normal 0.0-0.7 [facility] Comment on above: Performed By: #### A DIFF, NEIL CUETO, PAN, GFR, CBC, BMP #### [address] [address] Eosinophils/100 WBC (Bld) 1.2 % Normal 0.0-6.0 [facility] Comment on above: Performed By: #### A DIFF, NEIL CUETO, PAN, GFR, CBC, BMP #### [address] [address] Lymphocyte, Absolute 1.1 10 3/mcL Normal 0.9-4.3 [facility] Comment on above: Performed By: #### A DIFF, ANEU, TROPHS, MDW, GFR, CBC, BMP #### [address] [address] Lymphocytes/100 WBC (Bld) 15.6 % Low 20.0-40.0 [facility] Comment on above: Performed By: #### A DIFF, ANEU, TROPHS, MDW, GFR, CBC, BMP #### [address] [address] Monocyte, Absolute 0.5 10 3/mcL Normal 0.1-1.4 [facility] Comment on above: Performed By: #### A DIFF, ANEU, TROPHS, MDW, GFR, CBC, BMP #### [address] [address] Monocytes/100 WBC (Bld) 6.8 % Normal 2.0-13.0 [facility] Comment on above: Performed By: #### A DIFF, ANEU, TROPHS, MDW, GFR, CBC, BMP #### [address] [address] Neutrophils/100 WBC (Bld) 75.8 % High 50.0-75.0 [facility] Comment on above: Performed By: #### A DIFF, ANEU, TROPHS, MDW, GFR, CBC, BMP #### [address] [address] .GFRon 02-19-2025 Estimated Glomerular Filtration Rate 108 ml/min/1.73sqm Normal [facility] Comment on above: Result Comment: Stages of Chronic Kidney Disease (CKD) Stage Description eGFR(ml/min/1.73 sq.m.) CKD 1 Normal kidney function or >=90 normal kindney function with possible kidney damage (ex. Proteinuria) CKD 2 Kidney damage with mild loss 60-89 of kidney function CKD 3a Mild to moderate loss of kidney 45-59 function CKD 3b Moderate to severe loss of 30-44 of kindey function CKD 4 Severe loss of kidney function 15-29 CKD 5 Kidney failure <15 Note: (go live 2024) the eGFR calculation was updated to the 2020 CKD-EPI creatinine equation without a race factor to calculate the eGFR results. Performed By: #### A DIFF, NEIL CUETO, PAN, GFR, CBC, BMP #### [address] [address] .MDWon 02-19-2025 Monocyte Distribution Width 15.54 Normal 0.00-20.00 [facility] Comment on above: Result Comment: For ED adult patients suspected of sepsis, MDW<=20.0 does not rule out sepsis or risk of sepsis Performed By: #### A DIFF, NEIL CUETO, W, GFR, CBC, BMP #### [address] [address] .NEUABSon 02-19-2025 Neutrophil, Absolute 5.5 10 3/mcL Normal 2.3-8.1 [facility] Comment on above: Performed By: #### A DIFF, NEIL CUETO MDW, GFR, CBC, BMP #### [address] [address] BMPon 02-19-2025 BUN/Creatinine Ratio 20 ratio Normal 7-27 [facility] Comment on above: Performed By: #### A DIFF, NEIL CUETO MDW, GFR, CBC, BMP #### [address] [address] Calcium [Mass/Vol] 8.9 mg/dL Normal 8.4-10.2 [facility] Comment on above: Performed By: #### A DIFF, NEIL CUETO MDW, GFR, CBC, BMP #### [address] [address] Chloride [Moles/Vol] 105 mmol/L Normal 98-107 [facility] Comment on above: Performed By: #### A DIFF, NEIL CUETO, W, GFR, CBC, BMP #### [place] [id number] CO2 [Moles/Vol] 26 mmol/L Normal 22-29 [facility] Comment on above: Performed By: #### A DIFF, NEIL CUETO MDW, GFR, CBC, BMP #### [address] [address] Creatinine [Mass/Vol] 0.74 mg/dL Normal 0.51-0.95 [facility] Comment on above: Performed By: #### A DIFF, NEIL CUETO, W, GFR, CBC, BMP #### [address] [address] Electrolyte Balance 9.0 mEq/L Normal 4.0-15.0 [facility] Comment on above: Performed By: #### A DIFF, NEIL CUETO MDW, GFR, CBC, BMP #### [address] [address] Glucose [Mass/Vol] 99 mg/dL Normal 70-105 [facility] Comment on above: Performed By: #### A DIFF, NEIL CUETO MDW, GFR, CBC, BMP #### [address] [address] Potassium [Moles/Vol] 3.8 mmol/L Normal 3.5-5.1 [facility] Comment on above: Performed By: #### A DIFF, NEIL CUETO MDW, GFR, CBC, BMP #### [address] [address] Sodium [Moles/Vol] 140 mmol/L Normal 136-145 [facility] Comment on above: Performed By: #### A DIFF, NEIL CUETO MDW, GFR, CBC, BMP #### [address] [address] Urea nitrogen [Mass/Vol] 15 mg/dL Normal 7-18 [facility] Comment on above: Performed By: #### A DIFF, NEIL CUETO, W, GFR, CBC, BMP #### [address] [address] CBCon 02-19-2025 Erythrocyte distribution width (RBC) [Ratio] 12.1 % Normal 11.5-15.5 [facility] Comment on above: Performed By: #### A DIFF, ANEU, TROPHS, MDW, GFR, CBC, BMP #### [address] [address] Hematocrit (Bld) [Volume fraction] 36.8 % Normal 34.0-46.0 [facility] Comment on above: Performed By: #### A DIFF, ANEU, TROPHS, MDW, GFR, CBC, BMP #### [address] [address] Hgb 12.9 G/dL Normal 12.0-16.0 [facility] Comment on above: Performed By: #### A DIFF, ANEU, TROPHS, MDW, GFR, CBC, BMP #### [address] [address] MCH (RBC) [Entitic mass] 32.2 pg Normal 27.0-33.0 [facility] Comment on above: Performed By: #### A DIFF, ANEU, TROPHS, MDW, GFR, CBC, BMP #### [address] [address] MCHC 35.0 G/dL Normal 32.0-36.0 [facility] Comment on above: Performed By: #### A DIFF, ANEU, TROPHS, MDW, GFR, CBC, BMP #### [address] [address] MCV (RBC) [Entitic vol] 92.0 fL Normal 80.0-99.0 [facility] Comment on above: Performed By: #### A DIFF, ANEU, TROPHS, MDW, GFR, CBC, BMP #### [address] [address] Platelet 315 10 3/mcL Normal 150-450 [facility] Comment on above: Performed By: #### A DIFF, ANEU, TROPHS, MDW, GFR, CBC, BMP #### [address] [address] Platelet mean volume (Bld) [Entitic vol] 6.3 fL Low 6.6-10.5 [facility] Comment on above: Performed By: #### A DIFF, ANEU, NEIL, W, GFR, CBC, BMP #### [place] [id number] [place], [place] [address] RBC 4.00 10 6/mcL Low 4.10-5.30 [facility] Comment on above: Performed By: #### A DIFF, ANEU, NEIL, W, GFR, CBC, BMP #### [place] [id number] [place], [place] [address] WBC 7.2 10 3/mcL Normal 4.5-10.8 [facility] Comment on above: Performed By: #### A DIFF, ANEUNEIL, W, GFR, CBC, BMP #### [place] [id number] [place], [place] [address] LABORATORYOrdered By: SYSTEM SYSTEM on 02-19-2025 Basophils (Bld) [#/Vol] 0.0 103/mcL Normal 0.0 - 0.3 10^3/mcL AO Workflow SS Basophils/100 WBC (Bld) 0.6 % Normal 0.0 - 2.5 % AO Workflow SS Calcium [Mass/Vol] 8.9 mg/dL Normal 8.4 - 10. 2 mg/dL AO ADM SS Chloride [Moles/Vol] 105 mmol/L Normal 98 - 10 7 mmol/L AO ADM SS CO2 [Moles/Vol] 26 mmol/L Normal 22 - 29 mmol/L AO ADM SS Creatinine [Mass/Vol] 0.74 mg/dL Normal 0.51 - 0.95 mg/dL AO ADM SS Electrolyte Balance 9.0 mEq/L Normal 4.0 - 15 .0 mEq/L AO ADM SS Eosinophil, Absolute 0.1 103/mcL Normal 0.0 - 0 .7 10^3/mcL AO Workflow SS Eosinophils/100 WBC (Bld) 1.2 % Normal 0.0 - 6.0 % AO Workflow SS Erythrocyte distribution width (RBC) [Ratio] 12.1 % Normal 11.5 - 15.5 % AO Workflow SS GLOMERULAR FILTRATION RATE/1.73 SQ M.PREDICTED:ARVRAT:PT :SER/PLAS/BLD:QN:CREA TININE-BASED FORMULA (CKD-EPI 2020) 108 ml/min/1.73sqm Invalid Interpretation Code AO Chemistry S Comment on above: Interpretive Data: Stages of Chronic Kidney Disease (CKD) Stage Description eGFR(ml/min/1.73 sq.m.) CKD 1 Normal kidney function or >=90 normal kindney function with possible kidney damage (ex. Proteinuria) CKD 2 Kidney damage with mild loss 60-89 of kidney function CKD 3a Mild to moderate loss of kidney 45-59 function CKD 3b Moderate to severe loss of 30-44 of kindey function CKD 4 Severe loss of kidney function 15-29 CKD 5 Kidney failure <15 Note: (go live 2024) the eGFR calculation was updated to the 2020 CKD-EPI creatinine equation without a race factor to calculate the eGFR results. Glucose [Mass/Vol] 99 mg/dL Normal 70 - 105 mg/dL AO ADM SS Hematocrit (Bld) [Volume fraction] 36.8 % Normal 34.0 - 46.0 % AO Workflow SS Hemoglobin (Bld) [Mass/Vol] 12.9 G/dL Normal 12.0 - 16.0 G/dL AO Workflow SS Lymphocytes (Bld) [#/Vol] 1.1 103/mcL Normal 0.9 - 4.3 10^3/mcL AO Workflow SS Lymphocytes/100 WBC (Bld) 15.6 % Low 20.0 - 40.0 % AO Workflow SS MCH (RBC) [Entitic mass] 32.2 pg Normal 27.0 - 33.0 pg AO Workflow SS MCHC 35.0 G/dL Normal 32.0 - 36.0 G/dL AO Workflow SS MCV (RBC) [Entitic vol] 92.0 fL Normal 80.0 - 99.0 fL AO Workflow SS Monocyte distribution width Auto (Bld) [Entitic vol] 15.54 1 Normal 0.00 - 20.00 AO Workflow SS Comment on above: Result Comment: For ED adult patients suspected of sepsis, MDW<=20.0 does not rule out sepsis or risk of sepsis Monocytes (Bld) [#/Vol] 0.5 103/mcL Normal 0.1 - 1.4 10^3/mcL AO Workflow SS Monocytes/100 WBC (Bld) 6.8 % Normal 2.0 - 13.0 % AO Workflow SS Neutrophils (Bld) [#/Vol] 5.5 103/mcL Normal 2.3 - 8.1 10^3/mcL AO Workflow SS Neutrophils/100 WBC (Bld) 75.8 % High 50.0 - 75.0 % AO Workflow SS Platelet mean volume (Bld) [Entitic vol] 6.3 fL Low 6.6 - 10.5 fL AO Workflow SS Platelets (Bld) [#/Vol] 315 103/mcL Normal 150 - 450 10^3/mcL AO Workflow SS Potassium [Moles/Vol] 3.8 mmol/L Normal 3.5 - 5.1 mmol/L AO ADM SS RBC (Bld) [#/Vol] 4.00 106/mcL Low 4.10 - 5.3 0 10^6/mcL AO Workflow SS Sodium [Moles/Vol] 140 mmol/L Normal 136 - 145 mmol/L AO ADM SS Troponin I.cardiac DL <= 0.01 ng/mL [Mass/Vol] ng/L Normal 0 - 51 ng/L AO ADM SS Comment on above: Interpretive Data: H igh Sensitive Troponin I Reference Ranges: Female: 0-51 ng/L Male: 0-76 ng/L Testing performed on [employer] using a homogeneous sandwich chemiluminescent immunoassay based on [employer] technology. Urea nitrogen [Mass/Vol] 15 mg/dL Normal 7 - 18 mg/dL AO ADM SS Urea nitrogen/Creatinine [Mass ratio] 20 ratio Normal 7 - 27 ratio AO ADM SS WBC (Bld) [#/Vol] 7.2 103/mcL Normal 4.5 - 10.8 10^3/mcL AO Workflow SS LABORATORYOrdered By: Yary North on 02-19-2025 Color (U) Yellow (02/19/25 1:42 PM) Normal Yellow AO Auto Urine SS Glucose (U) [Mass/Vol] Negative Normal Negative AO Auto Urine SS HCG ( test) Ql Positive (02/19/25 1:42 PM) Normal AO Manual Urine SS Ketones Ql (U) Negative Normal Negative AO Auto Ur ine SS test (u) int Detected Invalid Interpretation Code AO Manual Urine SS UA Appear Clear (02/19/25 1:42 PM) Normal Clear AO Auto Urine SS UA Bili Negative (02/19/25 1:42 PM) Normal Negative AO Auto Urine SS UA Blood Negative (02/19/25 1:42 PM) Normal Negative AO Auto Urine SS UA Leuk Est Negative (02/19/25 1:42 PM) Normal Negative AO Auto Urine SS UA Nitrite Negative (02/19/25 1:42 PM) Normal Negative AO Auto Urine SS UA pH 6.0 (02/19/25 1:42 PM) Normal 5.0 - 8.0 AO Auto Urine SS UA Protein Negative Normal Negative AO Auto Urine SS UA Spec Grav 1.010 *ABN* (02/19/25 1:42 PM) Invalid Interpretation Code 1.015-1.025 AO Auto Urine SS UA Specimen Type Clean Catch (02/19/25 1:42 PM) Normal AO Auto Urine SS UA Urobilinogen 0.2 E.U./dL Normal 0.2-1.0 AO Auto Urine SS PREGUon 02-19-2025 HCG ( test) Ql (U) Positive Normal [facility] Comment on above: Performed By: #### U A, PREGU #### [address] [address] test (u) int Detected Invalid Interpretation Code [facility] Comment on above: Performed By: #### U A, PREGU #### [address] [address] TROPHSon 02-19-2025 High Sensitivity Troponin I <4 Normal 0-51 [facility] Comment on above: Result Comment: High Sensitive Troponin I Reference Ranges: Female: 0-51 ng/L Male: 0-76 ng/L Testing performed on [employer] using a homogeneous sandwich chemiluminescent immunoassay based on [employer] technology. Performed By: #### A DIFF, ANEU, TROPHS, MDW, GFR, CBC, BMP #### [address] [address] UAon 02-19-2025 Color (U) Yellow Normal Yellow [facility] Comment on above: Performed By: #### U A, PREGU #### [address] [address] Glucose (U) [Mass/Vol] Negative Normal Negative [facility] Comment on above: Performed By: #### U A, PREGU #### [address] [address] Ketones Ql (U) Negative Normal Negative [facility] Comment on above: Performed By: #### U A, PREGU #### [place] [address] UA Appear Clear Normal Clear [facility] Comment on above: Performed By: #### U A, PREGU #### [place] [address] UA Blood Negative Normal Negative [facility] Comment on above: Performed By: #### U A, PREGU #### [place] [address] UA Leuk Est Negative Normal Negative [facility] Comment on above: Performed By: #### U A, PREGU #### [place] [address] UA Nitrite Negative Normal Negative [facility] Comment on above: Performed By: #### U A, PREGU #### [place] [address] UA pH 6.0 Normal 5.0 - 8.0 [facility] Comment on above: Performed By: #### U A, PREGU #### [place] [address] UA Protein Negative Normal Negative [facility] Comment on above: Performed By: #### U A, PREGU #### [place] [address] UA Spec Grav 1.010 Abnormal 1.015-1.025 [facility] Comment on above: Performed By: #### U A, PREGU #### [place] [address] UA Specimen Type Clean Catch Normal [facility] Comment on above: Performed By: #### U A, PREGU #### [place] [address] UA Urobilinogen 0.2 E.U./dL Normal 0.2-1.0 [facility] Comment on above: Performed By: #### U A, PREGU #### [place] [id number] [place], [place] [address] Urobilinogen (U) [Mass/Vol] Negative Normal Negative [facility] Comment on above: Performed By: #### JANINE Pathak #### [facility] [address] [place], [place] [address] XR CHEST 1 VIEWon 02-19-2025 XR CHEST 1 VIEW ORIGINAL EXAMINATION: ONE XRAY VIEW OF THE CHEST02/19/2025 1:44 pm XR Chest portable upright COMPARISON: None HISTORY: ORDERING SYSTEM PROVIDED HISTORY: Reason for Exam: cp, FINDINGS: There is shallow inspiration and hypoventilatory changes in the lower lungs. No suspicious nodule, acute infiltrate, consolidation,mass, pneumothorax, pleural fluid, or vascular congestion is seen. Heart size and mediastinal contours are within normal limits for age and projection. No acute skeletal abnormality. IMPRESSION: No acute cardiopulmonary process. Interpreted by: Esteban Han MD Preliminary Report By: Esteban Han MD Electronically signed By Esteban Han MD Dictated Date: 02/19/2025 1:50:32 PM Prelim Date: 02/19/2025 1:50:51 PM Sign Date: 02/19/2025 1:50:51 PM Ordering Provider: RALEIGH CHAPIN Normal [facility] CNOVon 08-10-2024 CNOV Office Visit (INTMWS) TOVA BRENNAN ([id number]) 1990 F Date Time Provider Department 08/10/24 10:40 AM YARA OROPEZA INTMWS During your visit today, we recorded the following information about you: Pulse Respiration Blood pressure Weight 105/minute 16/minute 118/78 72.6 kg Yara Oropeza MD 08/10/2024 5:27 PM Signed Reason for Visit Follow up anxiety, has URI symptoms HPI Maribel is a 34-year-old female presenting with congestion and cough, as well as a follow-up for sertraline use. Maribel reports onset of congestion and cough over the past week, beginning after a weekend of fatigue and nasal congestion. She notes frequent rhinorrhea and has been using Sudafed, which has provided some relief. She also reports otalgia and a sensation of ear fullness, particularly in the right ear, with occasional popping and a feeling of drainage, though no actual fluid is observed. She experienced a sore throat last Tuesday but denies any current pharyngitis. She reports a low-grade fever of 99.8 degreeF. She has taken three at-home COVID-19 tests, all of which were negative. She inquires about the possibility of influenza. Maribel is also following up on her sertraline use, which she started recently. She reports improved emotional control and a reduction in episodes of crying. Initially, she experienced diarrhea after taking a full dose instead of the prescribed half dose for the first week. She also noted fatigue approximately one hour after taking the medication, which led her to gradually transition to taking it in the evenings around dinner time. She reports that this adjustment has been beneficial. She denies any issues with decreased libido. She has resumed bi-weekly therapy sessions and feels more in control of her emotions. She consumes one glass of red wine daily. Social History Tobacco Use Smoking status: Never Smokeless tobacco: Never Vaping Use Vaping status: Never Used Substance Use Topics Alcohol use: Yes Comment: Occasionally Drug use: No Past medical history, appointments, medications, allergies reviewed. Pertinent Lab/Diagnostic Studies are reviewed and discussed today Current Outpatient Medications: sertraline (ZOLOFT) 50 mg tablet Clindamycin-Benzoyl Peroxide 1.2 %(1 % base) -5 % gel benzonatate (TESSALON PERLE) 100 mg capsule loratadine (CLARITIN) 10 mg tablet predniSONE (DELTASONE) 10 mg tablet SOOLANTRA 1 % Health Maintenance Spirometry Influenza Vaccine(1) Covid-19 Vaccine( season)@ Review Of Systems Constitutional: (+) fatigue, (-) fever Ears/Nose/Mouth/Thro at: (+) ear fullness, (+) ear pain, (+) congestion, (-) sore throat Respiratory: (+) cough Genitourinary: (+) decreased libido Physical Exam BP 118/78 Pulse 105 Resp 16 Wt 72.6 kg (160 lb) LMP 07/06/2024 (Exact Date) SpO2 99% BMI 27.90 kg/m? GENERAL: NAD, alert and oriented. SKIN: Unremarkable, no rash or skin lesions. HEAD: Normocephalic. EYES: PERRLA, EOMI, conjunctiva clear. OROPHARYNX: Lips, mucosa, and tongue normal, good dentition. No oral lesions noted. NECK: Supple, no lymphadenopathy, normal thyroid, no carotid bruits. LUNGS: Clear to auscultation bilaterally, no wheezes/rhonchi/rale s. HEART: Regular rate and rhythm, no murmurs. No ectopy. EXTREMITIES: Normal, no deformities, no skin discoloration, no edema. NEURO: Awake, alert and oriented x3, cranial nerves II-XII grossly intact, normal gait, no involuntary motions. Assessment and Plan 1. Acute upper respiratory infection (J06.9) Allergic rhinitis, unspecified seasonality, unspecified trigger (J30.9) Symptoms include congestion, cough, and ear fullness with mild fever. Physical exam reveals bulging tympanic membrane on the right side, suggesting eustachian tube dysfunction likely secondary to viral infection and allergic rhinitis. - Prescribed Tessalon Perles for cough management. - Recommended loratadine for allergy symptoms. - Advised to continue using decongestants as needed, but not exceeding 5 days of continuous use. - Monitor symptoms and report if cough worsens or persists, indicating possible bronchitis. 2. Generalized anxiety disorder (F41.1) Current moderate episode of major depressive disorder without prior episode (HCC) (F32.1) Improvement in emotional control and reduction in crying episodes since starting sertraline. Initial side effects included diarrhea and fatigue, managed by adjusting dosing schedule to evenings. Patient is also engaged in regular therapy sessions. - Continue sertraline at current dose, taken in the evening. - Maintain bi-weekly therapy sessions. - Monitor for any changes in symptoms or side effects. Voice recognition software was used to compose this office note. Please excuse any unintended typographical errors. The patient consented to the use (more content not included)... Normal [facility] CNOVon 07-16-2024 CNOV Office Visit (INTMWS) TOVA BRENNAN ([id number]) 1990 F Date Time Provider Department 07/16/24 9:00 AM YARA OROPEZA During your visit today, we recorded the following information about you: Pulse Respiration Blood pressure Weight 95/minute 16/minute 124/90 73.8 kg Last Period 07/06/24 Yara Oropeza MD 07/16/2024 5:55 PM Signed CC: Patient presents with: Mental health AND weight gain HPI Tova Brennan is a 33 year old female who presents today for routine follow up. Anxiety and Depression: she has a long standing history of anxiety and depression. She had gone through counseling for a while and was exited as she was doing well. Since then she quit medications and counseling. Some stressors. recently which could be a stressor but most identified stressor is her work, which is very stressful. Has felt more tired than usual and sleeping 12 hours and taking long naps. Has also experienced abnormal periods that are felt to be result of cysts. Also is not as active as typical and gaining weight. Denies snoring or any witnessed apnea. Sleep: Is described as normal. Alcohol use: drinks approximately 1 drink a day Drug use: No Appetite: good Suicidal Thoughts: No suicidal or homicidal ideation, intent or plan Acne: currently not on the doxy and spironolactone, was advised to stop as she is hoping to get in the near future. REVIEW OF SYSTEMS General: no fevers, no chills, no night sweats, no recurrent infections, no change in appetite, no change in energy, and no significant changes in weight Respiratory: no cough, no wheezing, no shortness of breath, no hemoptysis Cardiovascular: no chest pain, no chest pressure, no palpitations, and no swelling Psych: PHQ 2 is 0 Endocrine: no cold intolerance, no heat intolerance, no polyuria, no polyphagia, and no polydipsia Neurologic: No headache, weakness, syncope. PAST MEDICAL HISTORY Diagnosis Date Adjustment disorder with depressed mood 07/15/2008 Allergic rhinitis 11/29/2011 Asthma 11/29/2011 Excessive or frequent menstruation Heavy periods Generalized anxiety disorder 07/25/2015 see scanned documents Hemorrhagic ovarian cyst 07/30/2020 right ovary Major depressive disorder 07/25/2015 See scanned documents Other acne PAST SURGICAL HISTORY Procedure Laterality Date NONE ALLERGIES Patient has no known allergies. MEDICATIONS Clindamycin-Benzoyl Peroxide 1.2 %(1 % base) -5 % gel Apply once daily to all areas of acne at bedtime. will bleach clothes until dry. Azelaic Acid 15 % gel Apply to the affected areas once daily predniSONE (DELTASONE) 10 mg tablet Take 4 tabs daily for 3 days, then 2 tabs daily for 3 days, then 1 tab daily for 3 days with food. FLUoxetine (PROZAC) 20 mg capsule Take 1 capsule by mouth once daily. (Patient not taking: Reported on 01/20/2024) doxycycline 20 mg tablet Take 1 tablet by mouth twice daily. Ordered by dermatology (Patient not taking: Reported on 01/20/2024) spironolactone (ALDACTONE) 50 mg tablet Take 1 tablet by mouth once daily. (Patient not taking: Reported on 01/20/2024) SOOLANTRA 1 % (Patient not taking: Reported on 01/20/2024) FAMILY HISTORY Problem Relation Age of Onset Diabetes Mother Diabetes Maternal Grandmother Coronary Artery Disease Maternal Grandmother Thyroid Maternal Grandmother Cancer Paternal Grandfather lung-smoker Coronary Artery Disease Paternal Grandfather Breast Cancer Paternal Aunt Social History Tobacco Use Smoking status: Never Smokeless tobacco: Never Vaping Use Vaping status: Never Used Substance Use Topics Alcohol use: Yes Comment: Occasionally Drug use: No PHYSICAL EXAM BP 124/90 Pulse 95 Resp 16 Wt 73.8 kg (162 lb 9.6 oz) LMP 07/06/2024 (Exact Date) SpO2 99% BMI 28.35 kg/m? General Appearance: well appearing, in no acute distress, alert Pysch: mood and affect broad and appropriate Skin: Skin color, texture, turgor normal for age; Eyes: conjunctiva pink and moist, no icterus, sclera white, non-injected Neck: Thyroid normal size and symmetric without palpable nodules, No adenopathy Lymph nodes: No cervical lymphadenopathy, No supraclavicular lymphadenopathy, Lungs: Lungs clear to auscultation. No wheezing, rhonchi, rales. Heart: RRR without murmur, gallop, or rubs. No ectopy Health maintenance reviewed with patient: Spirometry Never done Influenza Vaccine(1) due on 01/22/2024 Covid-19 Vaccine( season) due on 01/22/2024 Annual PCP Team Chronic Disease Visit due on 08/07/2024 Cervical Cancer Screening due on 07/21/2028 DTaP,Tdap,Td Vaccine(9 - Td or Tdap) due on 08/15/2029 Hepatitis B Vaccine Completed Hepatitis C Screening Completed HIV Screening Completed DATA REVIEWED: Most recent labs ASSESSMENT/PLAN: 1. Anxiety and depression - ICD9: 300.00, 311, ICD10: F4 (more content not included)... Normal [facility] Basic metabolic 2000 panelon 05-30-2024 Anion gap [Moles/Vol] 11 mmol/L 8 - 15 mmol/L [facility] Calcium [Mass/Vol] 9.0 mg/dL 8.5 - 10. 2 mg/dL [facility] Chloride [Moles/Vol] 104 mmol/L 98 - 10 7 mmol/L [facility] CO2 [Moles/Vol] 23 mmol/L 22 - 30 mmol/L [facility] Creatinine [Mass/Vol] 0.74 mg/dL 0.58 - 0.96 mg/dL [facility] GFR/1.73 sq M.predicted among non-blacks MDRD (S/P/Bld) [Vol rate/Area] 109 mL/min/{1.73_m2} - PINF [facility] Comment on above: Estimated Glomerular Filtration Rate (eGFR) is calculated using the 2020 CKD-EPI creatinine equation. This equation utilizes serum creatinine, sex, and age as parameters. The creatinine assay has traceable calibration to isotope dilution-mass spectrometry. Refer to KDIGO guidelines for clinical interpretation. In patients with unstable renal function, e.g. those with acute kidney injury, the eGFR may not accurately reflect actual GFR. Glucose [Mass/Vol] 91 mg/dL 74 - 99 mg/dL [facility] Comment on above: The [place] Diabete s Association (ADA) provides guidance for cutoff values for fasting glucose and random glucose. The ADA defines fasting as no caloric intake for at least 8 hours. Fasting plasma glucose results between 100 to 125 mg/dL indicate increased risk for diabetes (prediabetes). Fasting plasma glucose results greater than or equal to 126 mg/dL meet the criteria for diagnosis of diabetes. In the absence of unequivocal hyperglycemia, results should be confirmed by repeat testing. In a patient with classic symptoms of hyperglycemia or hyperglycemic crisis, random plasma glucose results greater than or equal to 200 mg/dL meet the criteria for diagnosis of diabetes. Reference: Standards of Medical Care in Diabetes 2016, [place] Diabetes Association. Diabetes Care. 2016.39(Suppl 1). Interpretation and review of laboratory results Normal [facility] Potassium [Moles/Vol] 4.3 mmol/L 3.7 - 5.1 mmol/L [facility] Sodium [Moles/Vol] 138 mmol/L 136 - 144 mmol/L [facility] Urea nitrogen [Mass/Vol] 17 mg/dL 7 - 21 mg/dL [facility] Basic metabolic 2000 panelon 05-29-2024 Anion gap [Moles/Vol] 11 mmol/L Normal 8-15 [facility] Comment on above: Order Comment: Speci men Type: BLOOD SPECIMENOrdering Facility: [facility] Address: [address] [place] [address] Performed By: #### 2 4321-2 ####[facility] LABCLIA [id number] [place] [address] [place] Calcium [Mass/Vol] 9.0 mg/dL Normal 8.5-10.2 [facility] Comment on above: Order Comment: Speci men Type: BLOOD SPECIMENOrdering Facility: [facility] Address: [address] [place] [address] Performed By: #### 2 4321-2 ####[facility] LABCLIA [id number] [place] [address] [place] Chloride [Moles/Vol] 104 mmol/L Normal 98-107 [facility] Comment on above: Order Comment: Speci men Type: BLOOD SPECIMENOrdering Facility: [facility] Address: [address] [place] [address] Performed By: #### 2 4321-2 ####[facility] LABCLIA [id number] [place] [address] [place] CO2 [Moles/Vol] 23 mmol/L Normal 22-30 [facility] Comment on above: Order Comment: Speci men Type: BLOOD SPECIMENOrdering Facility: [facility] Address: [address] [place] [address] Performed By: #### 2 4321-2 ####[facility] LABIA [id number] [place] [address] [place] Creatinine [Mass/Vol] 0.74 mg/dL Normal 0.58-0.96 [facility] Comment on above: Order Comment: Speci men Type: BLOOD SPECIMENOrdering Facility: [facility] Address: [address] [place] [address] Performed By: #### 2 4321-2 ####[facility] LABIA [id number] [place] [address] [place] Creatinine and Glomerular filtration rate.predicted panel (S/P/Bld) 109 mL/min/1.73m??? Normal >=60 [facility] Comment on above: Order Comment: Speci men Type: BLOOD SPECIMENOrdering Facility: [facility] Address: [address] [place] [address] Result Comment: Farrah mated Glomerular Filtration Rate (eGFR) is calculated using the 2020 CKD-EPI creatinine equation. This equation utilizes serum creatinine, sex, and age as parameters. The creatinine assay has traceable calibration to isotope dilution-mass spectrometry. Refer to KDIGO guidelines for clinical interpretation. In patients with unstable renal function, e.g. those with acute kidney injury, the eGFR may not accurately reflect actual GFR. Performed By: #### 2 4321-2 ####[facility] LABCLIA [id number] [place] [id number] [place] Glucose [Mass/Vol] 91 mg/dL Normal 74-99 [facility] Comment on above: Order Comment: Speci men Type: BLOOD SPECIMENOrdering Facility: [facility] Address: [address] [place] [id number] Result Comment: The [place] Diabetes Association (ADA) provides guidance for cutoff values for fasting glucose and random glucose. The ADA defines fasting as no caloric intake for at least 8 hours. Fasting plasma glucose results between 100 to 125 mg/dL indicate increased risk for diabetes (prediabetes). Fasting plasma glucose results greater than or equal to 126 mg/dL meet the criteria for diagnosis of diabetes. In the absence of unequivocal hyperglycemia, results should be confirmed by repeat testing. In a patient with classic symptoms of hyperglycemia or hyperglycemic crisis, random plasma glucose results greater than or equal to 200 mg/dL meet the criteria for diagnosis of diabetes. Reference: Standards of Medical Care in Diabetes 2016, [place] Diabetes Association. Diabetes Care. 2016.39(Suppl 1). Performed By: #### 2 4321-2 ####[facility] LABCLIA [id number] [place] [address] [place] Potassium [Moles/Vol] 4.3 mmol/L Normal 3.7-5.1 [facility] Comment on above: Order Comment: Speci men Type: BLOOD SPECIMENOrdering Facility: [facility] Address: [address] [place], [place] [id number] Performed By: #### 2 4321-2 ####[facility] LABCLIA [id number] [place] [address] [place] Sodium [Moles/Vol] 138 mmol/L Normal 136-144 [facility] Comment on above: Order Comment: Speci men Type: BLOOD SPECIMENOrdering Facility: [facility] Address: [address] [place] [address] Performed By: #### 2 4321-2 ####[facility] LABCLIA [id number] [place] [address] [place] Urea nitrogen [Mass/Vol] 17 mg/dL Normal 7-21 [facility] Comment on above: Order Comment: Speci men Type: BLOOD SPECIMENOrdering Facility: [facility] Address: [address] [place] [address] Performed By: #### 2 4321-2 ####[facility] LABCLIA [id number] [facility] [id number] [id number] [place] [facility] 11-09-2023 Indication Follow-up on ovarian cyst from outside ultrasound Impression Normal appearing anteverted uterus that measures 78 mm x 30 mm x 43 mm. The central endometrium complex measures 6 mm in combined thickness. No abnormal blood flow to suggest a polyp or focal endometrial pathology is observed within the endometrial complex. The contour of the endometrial cavity was normal on 3-D imaging. Right ovary contains a Corpus luteal cyst that measures 1.4cm in greatest dimension. The left ovary contains two complex cysts that demonstrated a reticular internal pattern which is likely consistent with hemorrhagic cyst. The largest dimension is 2.7cm. (see below for dimensions) 1. Size 27 mm x 21 mm x 23 mm. Hemorrhagic cyst with reticular pattern/clot 2. Size 13 mm x 14 mm x 16 mm. Hemorrhagic cyst with reticular pattern/clot No free fluid in culdesac. Technique> Duplex scan was performed using B-Mode/mcgarry scale imaging and Doppler spectral analysis and color flow. Recommendations O-RADS 2 ovarian lesion, non-simple cyst, almost certainly benign. No follow up imaging is needed (<3cm) Menstrual History LMP on 10/19/2023. Contraception: none Method Transabdominal, transvaginal, 3D ultrasound examination, Color Doppler examination. View: Adequate visualization Uterus Uterus: Visualized Uterus position: anteverted Description of uterine malformations: none Myometrium: heterogeneous Endometrium: normal Cervix details: normal Uterus length 78 mm Uterus width 43 mm Uterus height 30 mm Uterus Vol 51.7 cm Endometrial thickness, total 6.0 mm Fibroids: No fibroids identified Polyps: No polyps identified Right Ovary Rt ovary: Visualized Rt ovary D1 28 mm Rt ovary D2 15 mm Rt ovary D3 15 mm Rt ovary Vol 3.4 cm Rt ovarian cyst(s): Cysts identified Rt ovarian cyst D1 14 mm Rt ovarian cyst D2 13 mm Rt ovarian cyst D3 10 mm Rt ovarian cyst mean 12.3 mm Rt ovarian cyst vol 0.953 cm Rt ovarian cyst findings: corpus luteum Left Ovary Lt ovary: Visualized Lt ovary D1 39 mm Lt ovary D2 26 mm Lt ovary D3 24 mm Lt ovary Vol 12.6 cm Lt ovarian cyst(s): Cysts identified Lt ovarian cyst D1 27 mm Lt ovarian cyst D2 21 mm Lt ovarian cyst D3 23 mm Lt ovarian cyst mean 23.7 mm Lt ovarian cyst vol 6.828 cm Lt ovarian cyst findings: Hemorrhagic cyst with reticular pattern/clot Lt ovarian cyst D1 13 mm Lt ovarian cyst D2 14 mm Lt ovarian cyst D3 16 mm Lt ovarian cyst mean 14.3 mm Lt ovarian cyst vol 1.525 cm Lt ovarian cyst findings: Hemorrhagic cyst with reticular pattern/clot Cul de Sac Visualized. no free fluid visualized Performed By: Carmen Benton RDMS Read By: Gisela Branch M.D. MATERNAL MEDICINE [facility] 11-04-2023 Radiology Study observation (narrative) [facility] Lab Report: PAP Test I-Ravinder 1 PAPSMR Comment Invalid Interpretation Code . [facility] Replaced Document: CT/NG [facility] BY PCRon 02-17-2017 Chlamydia trachomatis DNA [Presence] in Urine by Probe and target amplification method Negative Invalid Interpretation Code Negative [facility] Neisseria gonorrhoeae presence Negative Invalid Interpretation Code Negative [facility] Office Visit: est annualon 0 02-16-2017 Documentation of current medications (procedure) Done Invalid Interpretation Code [facility] Fall risk assessment No Invalid Interpretation Code [facility] Tobacco smoking status MIIS Never Invalid Interpretation Code [facility] Tobacco smoking status MIIS Never smoker Invalid Interpretation Code [facility] Tobacco use CPHS Never smoker Invalid Interpretation Code [facility] Office Visit: est annualon 0 01-22-2016 General categories [Interpretation] of Cervical or vaginal smear or scraping by Cyto stain Abnormal Invalid Interpretation Code [facility] Vital Signs Date Time Vital Sign Value Performing Clinician Facility 08-10-2024 10:30-0400 Body mass index (BMI) [Ratio] 27.9 kg/m2 Yara Oropeza MD Work Phone: [facility] 08-10-2024 10:30-0400 Body weight 72.58 kg Yara Oropeza MD Work Phone: [facility] 08-10-2024 10:30-0400 Diastolic blood pressure 78 mm[Hg] Yara Oropeza MD Work Phone: [facility] 08-10-2024 10:30-0400 Heart rate 105 /min Yara Oropeza MD Work Phone: [facility] 08-10-2024 10:30-0400 Respiratory rate 16 /min Yara Oropeza MD Work Phone: [facility] 08-10-2024 10:30-0400 SaO2% (BldA) [Mass fraction] 99 % Yara Oropeza MD Work Phone: [facility] 08-10-2024 10:30-0400 Systolic blood pressure 118 mm[Hg] Yara Oropeza MD Work Phone: [facility] 07-16-2024 09:01-0500 Body mass index (BMI) [Ratio] 28.35 kg/m2 Yraa Oropeza MD Work Phone: [facility] 07-16-2024 09:01-0500 Body weight 73.75 kg Yara Oropeza MD Work Phone: [facility] 07-16-2024 09:01-0500 Diastolic blood pressure 90 mm[Hg] Yara Oropeza MD Work Phone: [facility] 07-16-2024 09:01-0500 Heart rate 95 /min Yara Oropeza MD Work Phone: [facility] 07-16-2024 09:01-0500 Respiratory rate 16 /min Yara Oropeza MD Work Phone: [facility] 07-16-2024 09:01-0500 SaO2% (BldA) [Mass fraction] 99 % Yara Oropeza MD Work Phone: [facility] 07-16-2024 09:01-0500 Systolic blood pressure 124 mm[Hg] Yara Oropeza MD Work Phone: [facility] 01-20-2024 16:39-0400 Body mass index (BMI) [Ratio] 28.29 kg/m2 Zion Marley APRN.CNP Work Phone: [facility] 01-20-2024 16:39-0400 Body temperature 99.61 [degF] Zion Pendlebury DIRECTOR OF MATH.SENIOR SQL DATABASE DEVELOPER Work Phone: [facility] 01-20-2024 16:39-0400 Body weight 73.6 kg Zionmilagro Crenshawlebury DIRECTOR OF MATH.SENIOR SQL DATABASE DEVELOPER Work Phone: [facility] 01-20-2024 16:39-0400 Diastolic blood pressure 79 mm[Hg] Zion Pendlebury DIRECTOR OF MATH.SENIOR SQL DATABASE DEVELOPER Work Phone: [facility] 01-20-2024 16:39-0400 Heart rate 92 /min Zion Pendlebury DIRECTOR OF MATH.SENIOR SQL DATABASE DEVELOPER Work Phone: [facility] 01-20-2024 16:39-0400 Respiratory rate 18 /min Zion Crenshawlebury DIRECTOR OF MATH.SENIOR SQL DATABASE DEVELOPER Work Phone: [facility] 01-20-2024 16:39-0400 SaO2% (BldA) [Mass fraction] 100 % Zionmilagro Crenshawlebury DIRECTOR OF MATH.SENIOR SQL DATABASE DEVELOPER Work Phone: [facility] 01-20-2024 16:39-0400 Systolic blood pressure 149 mm[Hg] Zion Pendlebury DIRECTOR OF MATH.SENIOR SQL DATABASE DEVELOPER Work Phone: [facility] 11-29-2023 15:58-0400 Body mass index (BMI) [Ratio] 27.68 kg/m2 Zion Pendlebury DIRECTOR OF MATH.SENIOR SQL DATABASE DEVELOPER Work Phone: [facility] 11-29-2023 15:58-0400 Body temperature 99.3 [degF] Zion Pendlebury DIRECTOR OF MATH.SENIOR SQL DATABASE DEVELOPER Work Phone: [facility] 11-29-2023 15:58-0400 Body weight 72 kg Zionmilagro Coreybury DIRECTOR OF MATH.SENIOR SQL DATABASE DEVELOPER Work Phone: [facility] 11-29-2023 15:58-0400 Diastolic blood pressure 68 mm[Hg] Zion Pendlebury DIRECTOR OF MATH.SENIOR SQL DATABASE DEVELOPER Work Phone: [facility] 11-29-2023 15:58-0400 Heart rate 74 /min Zion Pendlebury DIRECTOR OF MATH.SENIOR SQL DATABASE DEVELOPER Work Phone: [facility] 11-29-2023 15:58-0400 Respiratory rate 18 /min Zion Marley DIRECTOR OF MATH.SENIOR SQL DATABASE DEVELOPER Work Phone: [facility] 11-29-2023 15:58-0400 SaO2% (BldA) [Mass fraction] 98 % Zion Marley DIRECTOR OF MATH.SENIOR SQL DATABASE DEVELOPER Work Phone: [facility] 11-29-2023 15:58-0400 Systolic blood pressure 105 mm[Hg] Zion Marley DIRECTOR OF MATH.SENIOR SQL DATABASE DEVELOPER Work Phone: [facility] 11-19-2023 12:35-0400 Body mass index (BMI) [Ratio] 28.43 kg/m2 Tyron Babcock MD Work Phone: [facility] 11-19-2023 12:35-0400 Body temperature 98.2 [degF] Tyron Babcock MD Work Phone: [facility] 11-19-2023 12:35-0400 Body weight 73.96 kg Tyron Babcock MD Work Phone: [facility] 11-19-2023 12:35-0400 Diastolic blood pressure 64 mm[Hg] Tyron Babcock MD Work Phone: [facility] 11-19-2023 12:35-0400 Heart rate 80 /min Tyron Babcock MD Work Phone: [facility] 11-19-2023 12:35-0400 Respiratory rate 16 /min Tyron Babcock MD Work Phone: [facility] 11-19-2023 12:35-0400 SaO2% (BldA) [Mass fraction] 98 % Tyron Babcock MD Work Phone: [facility] 11-19-2023 12:35-0400 Systolic blood pressure 106 mm[Hg] Tyron Babcock MD Work Phone: [facility] 08-08-2023 08:01-0400 Body weight 69.4 kg Opal Camp DIRECTOR OF MATH.SENIOR SQL DATABASE DEVELOPER Work Phone: [facility] 08-08-2023 08:01-0400 Diastolic blood pressure 76 mm[Hg] Opal Older DIRECTOR OF MATH.SENIOR SQL DATABASE DEVELOPER Work Phone: [facility] 08-08-2023 08:01-0400 Heart rate 80 /min Opal Older DIRECTOR OF MATH.SENIOR SQL DATABASE DEVELOPER Work Phone: [facility] 08-08-2023 08:01-0400 Respiratory rate 16 /min Opal Older DIRECTOR OF MATH.SENIOR SQL DATABASE DEVELOPER Work Phone: [facility] 08-08-2023 08:01-0400 SaO2% (BldA) [Mass fraction] 97 % Opal Older DIRECTOR OF MATH.SENIOR SQL DATABASE DEVELOPER Work Phone: [facility] 08-08-2023 08:01-0400 Systolic blood pressure 118 mm[Hg] Opal Older DIRECTOR OF MATH.SENIOR SQL DATABASE DEVELOPER Work Phone: [facility] 07-22-2023 09:28-0500 Body weight 68.67 kg Virginia Ferrer MD Work Phone: [facility] 07-22-2023 09:28-0500 Diastolic blood pressure 82 mm[Hg] Virginia Ferrer MD Work Phone: [facility] 07-22-2023 09:28-0500 Systolic blood pressure 120 mm[Hg] Virginia Ferrer MD Work Phone: [facility] 12-28-2022 15:38-0400 Body temperature 98.71 [degF] Krislyn Aberegg PA Work Phone: [facility] 12-28-2022 15:38-0400 Body weight 65.32 kg Krislyn Aberegg PA Work Phone: [facility] 12-28-2022 15:38-0400 Diastolic blood pressure 64 mm[Hg] Krislyn Aberegg PA Work Phone: [facility] 12-28-2022 15:38-0400 Heart rate 76 /min Krislyn Aberegg PA Work Phone: [facility] 12-28-2022 15:38-0400 Respiratory rate 18 /min Krislyn Aberegg PA Work Phone: [facility] 12-28-2022 15:38-0400 SaO2% (BldA) [Mass fraction] 98 % Krislyn Aberegg PA Work Phone: [facility] 12-28-2022 15:38-0400 Systolic blood pressure 108 mm[Hg] Krislyn Aberegg PA Work Phone: [facility] 10-01-2022 14:15-0400 Body height 161.3 cm Yara Oropeza MD Work Phone: [facility] 10-01-2022 14:15-0400 Body temperature 98.49 [degF] Yara Oropeza MD Work Phone: [facility] 10-01-2022 14:15-0400 Body weight 63.5 kg Yara Oropeza MD Work Phone: [facility] 10-01-2022 14:15-0400 Diastolic blood pressure 56 mm[Hg] Yara Oropeza MD Work Phone: [facility] 10-01-2022 14:15-0400 Heart rate 104 /min Yara Oropeza MD Work Phone: [facility] 10-01-2022 14:15-0400 Respiratory rate 12 /min Yara Oropeza MD Work Phone: [facility] 10-01-2022 14:15-0400 SaO2% (BldA) [Mass fraction] 99 % Yara Oropeza MD Work Phone: [facility] 10-01-2022 14:15-0400 Systolic blood pressure 108 mm[Hg] Yara Oropeza MD Work Phone: [facility] 07-30-2022 14:29-0500 Body height 161.3 cm Yara Oropeza MD Work Phone: [facility] 07-30-2022 14:29-0500 Body temperature 98.2 [degF] Yara Oropeza MD Work Phone: [facility] 07-30-2022 14:29-0500 Body weight 62.6 kg Yara Oropeza MD Work Phone: [facility] 07-30-2022 14:29-0500 Diastolic blood pressure 72 mm[Hg] Yara Oropeza MD Work Phone: [facility] 07-30-2022 14:29-0500 Heart rate 98 /min Yara Oropeza MD Work Phone: [facility] 07-30-2022 14:29-0500 Respiratory rate 12 /min Yara Oropeza MD Work Phone: [facility] 07-30-2022 14:29-0500 SaO2% (BldA) [Mass fraction] 99 % Yara Oropeza MD Work Phone: [facility] 07-30-2022 14:29-0500 Systolic blood pressure 110 mm[Hg] Yara Oropeza MD Work Phone: [facility] 06-18-2022 15:40-0500 Body height 161.3 cm Yara Oropeza MD Work Phone: [facility] 06-18-2022 15:40-0500 Body temperature 98.71 [degF] Yara Oropeza MD Work Phone: [facility] 06-18-2022 15:40-0500 Body weight 62.6 kg Yara Oropeza MD Work Phone: [facility] 06-18-2022 15:40-0500 Diastolic blood pressure 70 mm[Hg] Yara Oropeza MD Work Phone: [facility] 06-18-2022 15:40-0500 Heart rate 95 /min Yara Oropeza MD Work Phone: [facility] 06-18-2022 15:40-0500 Respiratory rate 12 /min Yara Oropeza MD Work Phone: [facility] 06-18-2022 15:40-0500 SaO2% (BldA) [Mass fraction] 100 % Yara Oropeza MD Work Phone: [facility] 06-18-2022 15:40-0500 Systolic blood pressure 118 mm[Hg] Yara Oropeza MD Work Phone: [facility] 10-25-2021 11:34-0400 Body temperature 98.49 [degF] Juan Jose Santiago DIRECTOR OF MATH.SENIOR SQL DATABASE DEVELOPER Work Phone: [facility] 10-25-2021 11:34-0400 Body weight 60.15 kg Juan Jose Santiago DIRECTOR OF MATH.SENIOR SQL DATABASE DEVELOPER Work Phone: [facility] 10-25-2021 11:34-0400 Diastolic blood pressure 78 mm[Hg] Juan Jose Santiago DIRECTOR OF MATH.SENIOR SQL DATABASE DEVELOPER Work Phone: [facility] 10-25-2021 11:34-0400 Heart rate 83 /min Juan Jose Santiago DIRECTOR OF MATH.SENIOR SQL DATABASE DEVELOPER Work Phone: [facility] 10-25-2021 11:34-0400 Respiratory rate 18 /min Juan Jose Santiago DIRECTOR OF MATH.SENIOR SQL DATABASE DEVELOPER Work Phone: [facility] 10-25-2021 11:34-0400 SaO2% (BldA) [Mass fraction] 99 % Juan Jose Santiago DIRECTOR OF MATH.SENIOR SQL DATABASE DEVELOPER Work Phone: [facility] 10-25-2021 11:34-0400 Systolic blood pressure 112 mm[Hg] Juan Jose Santiago DIRECTOR OF MATH.SENIOR SQL DATABASE DEVELOPER Work Phone: [facility] 02-16-2017 15:13-0400 BMI (Body Mass Index) 22.93 kg/m2 Ida Mercer NP [facility] 02-16-2017 15:13-0400 Body Temperature 98.4 [degF] Ida Mercer NP [facility] 02-16-2017 15:13-0400 BP Diastolic 78 mm[Hg] Ida Mercer NP [facility] 02-16-2017 15:13-0400 BP Systolic 122 mm[Hg] Ida Mercer CHIEF OPERATOR SYNTHESIS [facility] 02-16-2017 15:13-0400 Height 162.56 cm Ida Mercer NP [facility] 02-16-2017 15:13-0400 Pulse (Heart Rate) 90 /min Ida Mercer NP [facility] 02-16-2017 15: Respiratory Rate 16 /min Ida Mercer NP [facility] 02-16-2017 15: Weight 60.6 kg Ida Mercer NP [facility] Encounters Encounter Date Encounter Type Care Provider Facility Start: 04-01-2025 End: 04-01-2025 ambulatory YARA GANTA Facility:[facility] Start: 03-28-2025 End: 03-28-2025 ambulatory YARA GANTA Facility:[facility] Start: 03-23-2025 End: 03-23-2025 ambulatory YARA GANTA Facility:[facility] Start: 03-21-2025 End: 03-21-[address] [facility] Start: 03-19-2025 End: 03-19-2025 ambulatory GERMAINE CANASERAGA Facility:[facility] Start: 03-19-2025 End: 03-19-2025 ambulatory GERMAINE BEBETO Facility:[facility] Start: 02-22-2025 End: 02-22-2025 ambulatory YARA GANTA Facility:[facility] Start: 02-22-2025 End: 02-22-2025 ambulatory TAMARA HOFFMAN Facility:[facility] Start: 02-19-2025 End: 02-19-2025 Emergency department patient visit SYDNI RUGGIERO MD [facility] Start: 08-10-2024 End: 08-10-2024 ambulatory YARA GANTA Facility:[facility] Start: 08-10-2024 End: 08-10-2024 Office outpatient visit 25 minutes Yara Oropeza MD Work Phone: [facility] [place] Comment on above: Current moderate epi sode of major depressive disorder without prior episode (HCC) (Primary Dx); Acute upper respiratory infection; Allergic rhinitis, unspecified seasonality, unspecified trigger; Generalized anxiety disorder Start: 07-16-2024 End: 07-16-2024 ambulatory YARA GANTA Facility:[facility] Start: 07-16-2024 End: 07-16-2024 Office outpatient visit 40 minutes Yara Oropeza MD Work Phone: [facility] [place] Comment on above: Anxiety and depressi on (Primary Dx) Start: 05-29-2024 End: 06-01-2024 ambulatory Yara Oropeza MD Work Phone: Internal Medicine [facility] Start: 01-20-2024 End: 01-20-2024 Office outpatient visit 25 minutes Zion Marley APRN.SENIOR SQL DATABASE DEVELOPER Work Phone: [facility] Comment on above: Rash (Primary Dx) Start: 11-29-2023 End: 11-29-2023 Office outpatient visit 15 minutes Zion Marley APRN.SENIOR SQL DATABASE DEVELOPER Work Phone: [facility] Comment on above: Viral illness (Prima ry Dx) Start: 11-19-2023 End: 11-19-2023 Office outpatient visit 25 minutes Tyron Babcock MD Work Phone: [facility] Comment on above: Contact dermatitis d ue to plant (Primary Dx) Start: 11-10-2023 Telephone encounter Virginia kiser MD Work Phone: OB/Gynecology Comment on above: Orders Start: 11-04-2023 End: 11-04-2023 ambulatory Ob Ultrasound Work Phone: OB/Gynecology Comment on above: COMPUTER TAPE LIBRARIAN Ultrasound Start: 11-04-2023 End: 11-04-2023 Patient encounter procedure [employer] [facility] Work Phone: OB/Gynecology Start: 08-08-2023 Telephone encounter Virginia kiser MD Work Phone: OB/Gynecology Comment on above: Orders Start: 08-08-2023 End: 08-08-2023 Patient encounter procedure Opal Camp APRN.SENIOR SQL DATABASE DEVELOPER Work Phone: [facility] [place] Comment on above: Anxiety and depressi on (Primary Dx); Other fatigue; Abnormal menses; Acne, unspecified acne type Start: 08-05-2023 End: 08-05-2023 Subsequent hospital visit by physician [facility] Work Phone: Radiology Comment on above: Intermenstrual spott ing [N92.3] Start: 07-26-2023 ambulatory Yara Wilder Work Phone: Internal [facility] Start: 07-22-2023 End: 07-22-2023 Patient encounter procedure Virginia Ferrer MD Work Phone: OB/Gynecology Comment on above: Intermenstrual spott ing (Primary Dx); Pelvic pain in female; History of HPV infection Start: 12-28-2022 End: 12-28-2022 Patient encounter procedure Kwasi HOUSE Work Phone: [facility] Comment on above: Paronychia of finger of right hand (Primary Dx) Start: 10-01-2022 End: 10-01-2022 Patient encounter procedure Yara Oropeza MD Work Phone: [facility] [place] Comment on above: Anxiety and depressi on (Primary Dx); Acne, unspecified acne type; Viral illness Start: 07-30-2022 End: 07-30-2022 Patient encounter procedure Yara Oropeza MD Work Phone: [facility] [place] Comment on above: Anxiety and depressi on (Primary Dx); Acne, unspecified acne type Start: 07-13-2022 ambulatory Yara Wilder Work Phone: [facility] Start: 06-18-2022 End: 06-18-2022 Patient encounter procedure Yara Oropeza MD Work Phone: [facility] [place] Comment on above: Annual physical exam (Primary Dx); Anxiety and depression; Acne, unspecified acne type; Low back pain, unspecified back pain laterality, unspecified chronicity, unspecified whether sciatica present Start: 10-26-2021 End: 10-26-2021 Nursing evaluation of patient and report Mi Nurse Work Phone: Family [facility] [place] Comment on above: APPOINTMENT CANCELLE D (Primary Dx) Start: 10-25-2021 End: 10-25-2021 Patient encounter procedure Juan Jose Jack DIRECTOR OF MATH.SENIOR SQL DATABASE DEVELOPER Work Phone: [facility] Comment on above: Rhus dermatitis (Carlyn kris Dx) Start: 10-15-2021 Telephone encounter Yara jade MD Work Phone: [facility] [place] Comment on above: Orders Start: 09-23-2021 ambulatory Yara Wilder Work Phone: [facility] [place] Comment on above: Required Tests and V accines for a new job Start: 07-24-2018 Patient encounter procedure Ida Mercer Facility:[facility] Procedures Date Procedure Procedure Detail Performing Clinician Start: 03-23-2025 Antibody screen YARA OROPEZA Comment on above: Order Comment: Speci men Type: BLOOD SPECIMENOrdering Facility: [facility] Address: [address] [place] [address] Performed By: #### T SPN ####[facility] LABCLIA [id number] [place] [address] [place] Start: 02-22-2025 Follow-up visit Follow Up TAMARA CORONA Start: 11-04-2023 Us pelvic nonobstetr ic real-time image complete Virginia Ferrer MD Work Phone: Start: 02-16-2017 End: 02-16-2017 Documentation of current medications Ida Mercer CHIEF OPERATOR SYNTHESIS Start: 02-16-2017 End: 02-17-2017 *GC/Chlamydia Ida Canos CHIEF OPERATOR [employer]THESIS Work Phone: Start: 02-16-2017 Cervical smear biops y taken Pap smear Ida Canos CHIEF OPERATOR [employer]IS Start: 02-16-2017 Gynecologic examination Routin e gynecological exam Ida Mercer CHIEF OPERATOR [employer]IS Start: 02-16-2017 End: 02-16-2017 Urine test visual color cmprsn meths Ida Canos CHIEF OPERATOR [employer] Work Phone: Start: 02-16-2017 Venereal disease screening Std scree negin Mercer CHIEF OPERATOR SY[employer]THESIS Start: 02-16-2017 End: 02-17-2017 *GC/Chlamydia Ida S Pocatello CHIEF OPERATOR SY[employer]THESIS Work Phone: Start: 02-16-2017 End: 02-16-2017 Urine, test (choriogonadotropin presence) Ida Mercer CHIEF OPERATOR [employer]TH[employer]IS Work Phone: Plan of Treatment Date Care Activity Detail Author Start: 08-15-2029 Urine microalbumin profile [facility] Start: 07-21-2028 Screening for malignant neoplasm of cervix [facility] Start: 08-10-2025 Annual PCP Team Chronic Disease Visit Annual PCP Team Chronic Disease Visit [facility] Start: 07-16-2025 Annual PCP Team Chronic Disease Visit Annual PCP Team Chronic Disease Visit [facility] Start: 10-08-2024 End: 10-08-2024 Patient encounter procedure 10/08/2024 11:00 AM EDT Office Visit [facility] [place] [address] [place] [address] Yara Oropeza MD [address] [place] [address] 2 Month F/U [facility] [place] Comment on above: 2 Month F/U Start: 08-10-2024 End: 08-10-2024 Patient encounter procedure 08/10/2024 10:40 AM EDT Office Visit [facility] [place] [address] [place] [address] Yara Oropeza MD [address] [place] [address] 4 Week F/U [facility] [place] Comment on above: 4 Week F/U Start: 08-07-2024 Annual PCP Team Chronic Disease Visit Annual PCP Team Chronic Disease Visit [facility] Start: 06-15-2024 End: 06-15-2024 Patient encounter procedure 06/15/2024 2:20 PM EST Office Visit [facility] [place] [address] [place] [address] Yara Oropeza MD [address] [place] [address] Weight gain and mental health. [facility] [place] Comment on above: Weight gain and ment al health. Start: 02-10-2024 End: 02-10-2024 Patient encounter procedure 02/10/2024 7:20 AM EDT Office Visit [facility] [place] [address] [place] [address] Opal Camp APRN.SENIOR SQL DATABASE DEVELOPER [address] [place] [address] 6 month follow up [facility] [place] Comment on above: 6 month follow up Start: 02-08-2024 Annual PCP Team Chronic Disease Visit Annual PCP Team Chronic Disease Visit [facility] Start: 02-08-2024 Screening for malignant neoplasm of cervix HPV Testing [facility] Comment on above: Postponed from 01/18 (Declined at this time) Start: 02-08-2024 Spirometry Spirometry [facility] Comment on above: Postponed from 08/03 (Declined at this time) Start: 01-22-2024 Covid-19 Vaccine () Covid-19 Vaccine () [facility] Start: 01-22-2024 Influenza vaccination C [facility] Start: 11-20-2023 Influenza vaccination Influenza Vacc ine (#1) [facility] Comment on above: Postponed from 01/21 (Declined at this time) Start: 11-10-2023 End: 11-09-2024 US Pelvis PELVIC US I Anc Imaging Routine Ovarian cyst, left Expected: 11/10/2023, Expires: 11/09/2024 [facility] Work Phone: Comment on above: Expected: 11/10/2023 , Expires: 11/09/2024 Start: 10-02-2023 ANNUAL PCP TEAM CHRONIC DISEASE VISIT ANNUAL PCP TEAM CHRONIC DISEASE VISIT [facility] Start: 09-19-2023 End: 08-07-2024 US Pelvis PELVIC US WHI Anc Imaging Routine Cyst of ovary, unspecified laterality Expected: 09/19/2023 (Approximate), Expires: 08/07/2024 [facility] Work Phone: Comment on above: Expected: 09/19/2023 (Approximate), Expires: 08/07/2024 Start: 08-08-2023 End: 11-07-2023 CBC W Auto Differential panel - Blood [facility] Work Phone: Comment on above: Expected: 08/08/2023 , Expires: 11/07/2023 Start: 08-08-2023 End: 11-07-2023 Thyrotropin [Units/volume] in Serum or Plasma [facility] Work Phone: Comment on above: Expected: 08/08/2023 , Expires: 11/07/2023 Start: 07-31-2023 ANNUAL PCP TEAM CHRONIC DISEASE VISIT ANNUAL PCP TEAM CHRONIC DISEASE VISIT [facility] Start: 07-26-2023 End: 10-25-2023 Basic metabolic 2000 panel - Serum or Plasma BASIC METABOLIC PNL Lab Routine Medication management Expected: 07/26/2023, Expires: 10/25/2023 [facility] Work Phone: Comment on above: Expected: 07/26/2023 , Expires: 10/25/2023 Start: 07-22-2023 End: 07-21-2024 US Pelvis PELVIC US WHI Anc Imaging Routine Intermenstrual spotting Pelvic pain in female Expected: 07/22/2023, Expires: 07/21/2024 [facility] Work Phone: Comment on above: Expected: 07/22/2023 , Expires: 07/21/2024 Start: 06-18-2023 ANNUAL PCP TEAM CHRONIC DISEASE VISIT ANNUAL PCP TEAM CHRONIC DISEASE VISIT [facility] Start: 06-13-2023 PAP TESTING PAP TESTING [facility] Start: 06-13-2023 Screening for malignant neoplasm of cervix Pap Testing [facility] Start: 01-21-2023 Covid-19 Vaccine () Covid-19 Vaccine () [facility] Start: 01-21-2023 Influenza vaccination INFLUENZA (#1) [facility] Start: 07-13-2022 End: 09-12-2022 Basic metabolic 2000 panel - Serum or Plasma BASIC METABOLIC PNL Lab Routine Medication management Expected: 07/13/2022, Expires: 09/12/2022 [facility] Work Phone: Comment on above: Expected: 07/13/2022 , Expires: 09/12/2022 Start: 07-13-2022 End: 09-12-2022 SCHEDULE LAB TESTING SCHEDULE LAB TESTING Lab Routine Expected: 07/13/2022, Expires: 09/12/2022 [facility] Work Phone: Comment on above: Expected: 07/13/2022 , Expires: 09/12/2022 Start: 04-03-2022 ANNUAL PCP TEAM CHRONIC DISEASE VISIT ANNUAL PCP TEAM CHRONIC DISEASE VISIT [facility] Start: 01-18-2021 HPV TESTING HPV TESTING [facility] Start: 01-07-2021 COVID-19 VACCINE (3 - Booster for Pfizer series) COVID-19 VACCINE (3 - Booster for Pfizer series) [facility] Start: 02-16-2017 End: 02-16-2017 Appointment Appointment [facility] Start: 02-16-2017 End: 02-17-2017 *GC/Chlamydia *GC/Chlamydia [facility] Start: 02-16-2017 End: 02-17-2017 *GC/Chlamydia *GC/Chlamydia [facility] Start: 08-04-2007 SPIROMETRY SPIROMETRY [facility] Start: 08-04-1995 PNEUMOCOCCAL (1 - PCV) PNEUMOCOCCAL (1 - PCV) [facility] BACTERIAL VAGINOSIS NAAT BACTERIAL VAGINOSIS NAAT Lab Routine Intermenstrual spotting Pelvic pain in female 07/22/2023 10:03 AM EST [facility] Work Phone: JOSE JUAN/TRICHOMONAS NAAT JOSE JUAN/TRICHOMONAS NAAT Lab Routine Intermenstrual spotting Pelvic pain in female 07/22/2023 10:03 AM EST [facility] Work Phone: PAP TEST PAP TEST Lab Rou oren Intermenstrual spotting Pelvic pain in female 07/22/2023 10:22 AM EST [facility] Work Phone: PPD (TB INTRADERMAL 47400) B/O PPD (TB INTRADERMAL 71984) B/O Procedures Routine Screening examination for pulmonary tuberculosis Ordered: 10/15/2021 [facility] Work Phone: Comment on above: Ordered: 10/15/2021 End: 08-20-2024 US Pelvis transvaginal US FEMALE PELVIS TRANSVAG Radiology Routine Intermenstrual spotting Pelvic pain in female 1 Occurrences starting 07/22/2023 until 08/20/2024 [facility] Work Phone: Comment on above: 1 Occurrences starti ng 07/22/2023 until 08/20/2024 US Pelvis transvaginal US FEMALE PELVIS TRANSVAG Radiology Routine Intermenstrual spotting Pelvic pain in female 08/05/2023 3:43 PM EDT [facility] Work Phone: [facility] Immunizations Immunization Date Immunization Notes Care Provider [facility] 04-19-2022 influenza, seasonal, injectable Yara Oropeza MD Work Phone: [facility] 04-19-2022 influenza virus vaccine, unspecified formulation Virginia Ferrer MD Work Phone: [facility] 03-11-2021 influenza, injectabl e, quadrivalent, preservative free Mi Nurse Work Phone: [facility] 03-03-2021 influenza, injectabl e, quadrivalent, contains preservative Yara Oropeza MD Work Phone: [facility] Work Phone: 08-07-2020 COVID-19 vaccine, ag e 12+ yr (PFIZER-BIONTECH - PURPLE TOP) Yara Oropeza MD Work Phone: [facility] 07-17-2020 COVID-19 vaccine, ag e 12+ yr (PFIZER-BIONTECH - PURPLE TOP) Yara Oropeza MD Work Phone: [facility] 02-29-2020 influenza, injectabl e, quadrivalent, preservative free Mi Nurse Work Phone: [facility] 08-16-2019 tetanus toxoid, redu fabian diphtheria toxoid, and acellular pertussis vaccine, adsorbed Yara Oropeza MD Work Phone: [facility] 02-23-2019 influenza virus vaccine, unspecified formulation Mi Nurse Work Phone: [facility] 02-20-2019 Influenza, injectabl e, [place] Canine Kidney, preservative free, quadrivalent Mi Nurse Work Phone: [facility] 02-20-2018 Influenza, injectabl e, [place] Canine Kidney, preservative free, quadrivalent Mi Nurse Work Phone: [facility] 09-22-2016 Human Papillomavirus 9-valent vaccine Yara Oropeza MD Work Phone: [facility] 05-25-2016 Human Papillomavirus 9-valent vaccine Yara Oropeza MD Work Phone: [facility] 03-25-2016 Human Papillomavirus 9-valent vaccine Yara Oropeza MD Work Phone: [facility] 03-11-2014 influenza, live, intranasal, quadrivalent Mi Nurse Work Phone: [facility] 05-06-2011 influenza virus vaccine, unspecified formulation Yara Oropeza MD Work Phone: [facility] Work Phone: 03-26-2009 novel [id number], live virus for nasal administration Mi Nurse Work Phone: [facility] 11-27-2008 tetanus and diphther ia toxoids, adsorbed, preservative free, for adult use (2 Lf of tetanus toxoid and 2 Lf of diphtheria toxoid) Yara Oropeza MD Work Phone: [facility] 10-31-2007 human papilloma viru s vaccine, quadrivalent Yara Oropeza MD Work Phone: [facility] Work Phone: 10-31-2007 meningococcal polysaccharide vaccine (MPSV4) Yara Oropeza MD Work Phone: [facility] Work Phone: 07-27-2005 hepatitis B vaccine, pediatric or pediatric/adolescent dosage Yara Oropeza MD Work Phone: [facility] 08-28-2004 hepatitis B vaccine, pediatric or pediatric/adolescent dosage Yara Oropeza MD Work Phone: [facility] 06-01-2004 hepatitis B vaccine, pediatric or pediatric/adolescent dosage Yara Oropeza MD Work Phone: [facility] 12-04-2001 measles, mumps and rubella virus vaccine Yara Oropeza MD Work Phone: [facility] 12-21-2000 diphtheria and tetan us toxoids, adsorbed for pediatric use Yara Oropeza MD Work Phone: [facility] 05-23-1997 Chicken Pox (disease) Yara Oropeza MD Work Phone: [facility] Work Phone: 08-12-1994 diphtheria, tetanus toxoids and acellular pertussis vaccine Yara Oropeza MD Work Phone: [facility] 08-12-1994 poliovirus vaccine, inactivated Yara Oropeza MD Work Phone: [facility] 02-06-1991 diphtheria, tetanus toxoids and acellular pertussis vaccine Yara Oropeza MD Work Phone: [facility] 01-06-1991 poliovirus vaccine, inactivated Yara Oropeza MD Work Phone: [facility] 01-04-1991 haemophilus influenz ae type b vaccine, HbOC conjugate Yara Oropeza MD Work Phone: [facility] 01-04-1991 measles, mumps and rubella virus vaccine Yara Oropeza MD Work Phone: [facility] 08-09-1990 tuberculin skin test ; purified protein derivative solution, intradermal Zion Marley APRN.CNP Work Phone: [facility] 02-06-1990 diphtheria, tetanus toxoids and acellular pertussis vaccine Yara Oropeza MD Work Phone: [facility] 1989 diphtheria, tetanus toxoids and acellular pertussis vaccine Yara Oropeza MD Work Phone: [facility] 1989 poliovirus vaccine, inactivated Yara Oropeza MD Work Phone: [facility] 1989 diphtheria, tetanus toxoids and acellular pertussis vaccine Yara Oropeza MD Work Phone: [facility] 1989 poliovirus vaccine, inactivated Yara Oropeza MD Work Phone: [facility] NEGATED: Highlighted row has not occurred!10-26-2021 tuberculin skin test; purified protein derivative solution, intradermal Zion Marley APRN.CNP Work Phone: [facility] Comment on above: Deferred: Postponed Payers Date Payer Category Payer Private Health Insurance [id number] 2023 Blue [employer] Blue Shield BLUE CARD PPO OOS [id number] 2023 Unknown [id number] 2022 Unknown [id number] 2018 Unknown MMO MMO [employer] [id number] 2018-Present [phone] [address] [place] [address] PPO [id number] 2018 Self-pay 2018 Unknown [id number] 1989 Unknown [id number] Unknown [id number] Social History Date Type Detail Facility Start: 06-18-2022 Tobacco smoking status NHIS Never smoked tobacco [facility] Start: 04-03-2021 End: 08-10-2024 Alcohol intake Current drinker of alcohol (finding) [facility] Start: 07-07-2020 End: 06-17-2022 History SDOH Alcohol Frequency 2 [facility] Start: 07-07-2020 End: 06-17-2022 History SDOH Alcohol Std Drinks 1 [facility] Start: 08-13-2014 History SDOH Alcohol Comment Occasionally [facility] Start: 07-07-2020 End: 06-17-2022 History SDOH Social Connections Phone 5 [facility] Start: 07-07-2020 History SDOH Social Connections Living 7 [facility] Start: 07-07-2020 History SDOH Physical Activity MPS 4 [facility] Start: 07-07-2020 End: 06-17-2022 History SDOH Stress 3 [facility] Start: 07-06-2020 Education 17 [facility] Start: 1990 Sex Assigned At Female [facility] Start: 09-22-2021 End: 10-25-2021 Exposure to SARS-CoV-2 (event) Not sure [facility] Start: 06-18-2022 Tobacco use and exposure Smokeless tobacco non-user [facility] Work Phone: Start: 06-17-2022 History SDOH Social Connections Living 8 [facility] Start: 06-17-2022 End: 10-01-2022 History of Social function [facility] Start: 06-17-2022 End: 10-01-2022 Social connection and isolation panel [facility] Do you belong to any clubs or organizations such as oriental orthodox groups, unions, fraternal or athletic groups, or school groups? No [facility] Are you now , , , , never or living with a partner? Living with partner [facility] How often to you hav e a drink containing alcohol? 4 or more times a week [facility] How many standard dr inks containing alcohol do you have on a typical day? 1 or 2 [facility] How often do you hav e 6 or more drinks on 1 occasion? Less than monthly [facility] How hard is it for y ou to pay for the very basics like food, housing, medical care, and heating Not hard at all [facility] Do you feel stress - tense, restless, nervous, or anxious, or unable to sleep at night because your mind is troubled all the time - these days [OSQ] Very much [facility] (I/We) worried wheth er (my/our) food would run out before (I/we) got money to buy more. Never true [facility] Start: 07-22-2020 Gender identity Identifies as female gender (finding) [facility] Start: 07-22-2020 Sexual orientation Heterosexual (finding) [facility] Are you now , , , , never or living with a partner? [facility] How often do you hav e 6 or more drinks on 1 occasion? Never [facility] Do you feel stress - tense, restless, nervous, or anxious, or unable to sleep at night because your mind is troubled all the time - these days [OSQ] Only a little [facility] Tobacco smoking status [facility] Start: 02-19-2025 Sex Female (finding) [facility] Functional Status Date Assessment Result Facility 08-10-2024 Total score [AUDIT-C] 4 08/11/19 7:22 AM EDT User, Lewist [facility] 08-10-2024 Within the last year , have you been humiliated or emotionally abused in other ways by your partner or ex-partner? No 08/10/2024 7:22 AM EDT User, Mychart No [facility] 08-10-2024 Within the last year , have you been afraid of your partner or ex-partner? No 08/10/2024 7:22 AM EDT User, Mychart No [facility] 08-10-2024 Within the last year , have you been raped or forced to have any kind of sexual activity by your partner or ex-partner? No 08/10/2024 7:22 AM EDT User, Mycdeniat No [facility] 08-10-2024 Within the last year , have you been kicked, hit, slapped, or otherwise physically hurt by your partner or ex-partner? No 08/10/2024 7:22 AM EDT User, Susuhart No [facility] 08-10-2024 How often to you hav e a drink containing alcohol? 4 or more times a week 08/10/2024 7:22 AM EDT User, Mychart 4 or more times a week [facility] 08-10-[address] inks containing alcohol do you have on a typical day? 1 or 2 08/10/2024 7:22 AM EDT User, Mychart 1 or 2 [facility] 08-10-2024 How often do you hav e 6 or more drinks on 1 occasion? Never 08/10/2024 7:22 AM EDT User, Mychart Never [facility] 07-16-2024 Patient Health Quest ionnaire 2 item (PHQ-2) [Reported]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 leg [id number] [employer]. [address] [place] [address]. All rights reserved. This information is not intended as a substitute for professional medical care. Always follow your healthcare professional's instructions. Additional Information VACCINATE! IT SAVES LIVES! Members of the community who have not yet received the COVID-19 vaccine and would like to receive it can visit one of [facility] vaccine clinics. There are many vaccine clinic locations within the [facility]. For locations and available times, please visit [email or web address] [email or web address] It is important to note that some COVID mobile vaccine clinics are held outdoors and may be canceled in rainy or stormy conditions. To learn more about pediatric vaccinations (ages 5-11), we invite you to visit the [facility] webpage. https://www.[facility].org/p ages/5856-Qudur-Achvzybgrbg-Freq ualncn-Blnmo-Ncmajousq.html To learn more about the COVID-19 vaccine, we invite you to visit the CDC website for a list of frequently asked questions. https://www.cdc.gov/coronavirus/ 2019-ncov/vaccines/faq.html [facility] Patient Portal Access Instructions: Stay connected with your healthcare team and access your personal medical information anytime with the [facility] Patient Portal. If you would like a full copy of your medical records please contact the [facility] Medical Records Department Tuesday through Tuesday between 8a.m. and 4:30p.m. Please follow the directions below to access the portal: 1.Access the email account you provided upon registration to the hospital.2.Look for an invitation email from [facility].3.Open the email and access the invitation link: Accept Invitation to [facility].Fill in the required iqbal to create your account. To access your account, visit [employer] or scan the QR code above. Click the blue button labeled Access Patient Portal and then log in with the username and password that you created in the steps above. You can then view a summary of results, a summary of your visits, and the ability to download your summaries to your computer or send the information securely to a physician. Remember that your healthcare information is confidential, so carefully consider who you will allow to register on the [facility] Patient Portal for access to your information. You can also access the [facility] Patient Portal on the [employer]plus. Simply click on Health Records under Health Data and then click on the [email or web address] logo. HOW TO SAFELY DISPOSE OF PRESCRIPTION MEDICATIONS Please use one of the following methods to safely dispose of your unused medications. 1.Use a drug disposal kit: the drug disposal pouch allows you to safely discard your old and unused drugs. Ask your nurse to give you one when you are discharged.2.Visit a local take-back location: Many local pharmacies and police departments have programs that collect old and unwanted prescription drugs. Call your local pharmacy or go to http://[employer].EstatesDirect.com/5K3Ld0i to find one close to you.3.Make use of household items: Use cat litter or old coffee grounds to dispose medications if other options are not available. Mix your drugs with these household products, seal them in an airtight container and throw it into the garbage. Call [facility]: [phone] to be sure your drugs can be disposed of in this way. Some medicines may require a different approach.4.Never flush your medications down the toilet. IF YOU HAVE BEEN PRESCRIBED AN OPIOIDS FOR PAIN If you have been prescribed an opioid (such as hydrocodone, oxycodone or morphine), it is critical to understand the possible side effects and risks of opioid pain medications. Even when taken as directed, opioids can have several side effects including: Tolerance, meaning you might need to take more of a medication for the same pain relief. Nausea, vomiting and/or constipation. Sleepiness, dizziness, dry mouth, confusion, depression or itching. Physical dependence, meaning you have withdrawal symptoms when a medication is stopped ? this can develop within a few days. KNOW YOUR RESPONSIBILITIES It is important to know exactly how much and how often to take the opioid pain medications you are prescribed. Never take opioids in higher amounts or more often than prescribed. Do not combine opioids with alcohol or other drugs that cause drowsiness, such as benzodiazepines, also known as benzos, including diazepam and alprazolam, muscle relaxants or sleep aids. Never sell or share prescription opioids. This is illegal. Store opioids in a secure place and out of reach of others (including children, family, friends and visitors). The last page(s) of this document has been signed and retained as a CHART COPY Signatures Patient Education Materials Chest Pain, Uncertain Cause Medication Leaflets My discharge plan and instructions have been reviewed and explained to me and I,TOVA BRENNAN understand my current condition and have read and understand these discharge instructions. I have received a written copy of the plan/instructions. If I have questions, I am aware that I should contact my doctor. Patient/Meter Maintenance Person Signature: Date/Time: Relationship to Patient: Witness Name/Signature: Date/Time: [facility] 02-19-2025 Note Exam Date Time Procedure Performing Provider Status 02/19/25 1:44 PM XR Chest 1 View ESTEBAN HAN MD; Auth (Verified) [id number] ORIGINAL EXAMINATION: ONE XRAY VIEW OF THE CHEST02/19/2025 1:44 pm XR Chest portable upright COMPARISON: None HISTORY: ORDERING SYSTEM PROVIDED HISTORY: Reason for Exam: cp, FINDINGS: There is shallow inspiration and hypoventilatory changes in the lower lungs. No suspicious nodule, acute infiltrate, consolidation,mass, pneumothorax, pleural fluid, or vascular congestion is seen. Heart size and mediastinal contours are within normal limits for age and projection. No acute skeletal abnormality. IMPRESSION: No acute cardiopulmonary process. Interpreted by: Esteban Han MD Preliminary Report By: Esteban Han MD Electronically signed By Esteban Han MD Dictated Date: 02/19/2025 1:50:32 PM Prelim Date: 02/19/2025 1:50:51 PM Sign Date: 02/19/2025 1:50:51 PM Ordering Provider: RALEIGH CHAPIN RP [facility]09-30-2025 Note* Exam Date Time Procedure Performing Provider Status 02/19/25 1:44 PM EKG [ED AOH] - CV SYDNI RUGGIERO MD; Auth (Verified) ECG Final Report Sinus rhythm Short AL interval Baseline wander in lead(s) V1 Electronic Signature: SYDNI RUGGIERO MD 02/19/2025 13:50:59 [facility]03-21-2025 Instructions* Patient Instructions* Yara Oropeza MD - 08/10/2024 11:11 AM EDT We discussed your recent congestion, cough, and ear discomfort: - Your symptoms, including congestion, ear fullness, and occasional cough, are likely due to a viral illness or allergies. There is no evidence of a bacterial infection. - You may take loratadine (an wxef-ich-nplrkwi antihistamine) daily to help with allergy-related symptoms. This will not cause drowsiness. - You may use a decongestant (e.g., Sudafed) as needed, but limit its use to no more than 5 consecutive days to avoid side effects. - I prescribed Tessalon Perles to help manage your cough. This has been sent to your pharmacy. - If your symptoms worsen, persist beyond two weeks, or if you develop a fever over 100 F, please contact me. Additionally, if your cough keeps you up at night or worsens to suggest bronchitis, let me know. We discussed your current use of sertraline (Zoloft): - You are tolerating sertraline well and have adjusted to taking it in the evening to minimize sideeffects like fatigue. This is an appropriate adjustment. - You are feeling more in control of your emotions, and therapy sessions every other week are helping. We agreed to continue with your current dose and reassess as needed. We discussed your overall health and lifestyle: - You are limiting alcohol to one drink per day, typically red wine, which is appropriate. - Gradually reintroducing activities you enjoy, such as walking, may help improve your overall well-being. Follow-Up: - Please monitor your symptoms and reach out if they worsen or do not improve as expected. - Continue with your therapy sessions and let me know if you feel any changes in your emotional health or medication effectiveness. Take care, and let me know if you have any further concerns. [facility] NoteHNO ID: [id number] Author: YARA OROPEZA MD Service: ? Author Type: Physician Type: Progress Notes Filed: 08/10/2024 17:27 Note Text: Reason for Visit Follow up anxiety, has URI symptoms HPI Maribel is a 34-year-old female presenting with congestion and cough, as well as a follow-up for sertraline use. Maribel reports onset of congestion and cough over the past week, beginning after a weekend of fatigue and nasal congestion. She notes frequent rhinorrhea and has been using Sudafed, which has provided some relief. She also reports otalgia and a sensation of ear fullness, particularly in the right ear, with occasional popping and a feeling of drainage, though no actual fluid is observed. She experienced a sore throat last Tuesday but denies any current pharyngitis. She reports a low-grade fever of 99.8 degreeF. She has taken three at-home COVID-19 tests, all of which were negative. She inquires about the possibility of influenza. Maribel is also following up on her sertraline use, which she started recently. She reports improved emotional control and a reduction in episodes of crying. Initially, she experienced diarrhea after taking a full dose instead of the prescribed half dose for the first week. She also noted fatigue approximately one hour after taking the medication, which led her to gradually transition to taking it in the evenings around dinner time. She reports that this adjustment has been beneficial. She denies any issues with decreased libido. She has resumed bi-weekly therapy sessions and feels more in control of her emotions. She consumes one glass of red wine daily. Social History Tobacco Use Smoking status: Never Smokeless tobacco: Never Vaping Use Vaping status: Never Used Substance Use Topics Alcohol use: Yes Comment: Occasionally Drug use: No Past medical history, appointments, medications, allergies reviewed. Pertinent Lab/Diagnostic Studies are reviewed and discussed today Current Outpatient Medications: sertraline (ZOLOFT) 50 mg tablet Clindamycin-Benzoyl Peroxide 1.2 %(1 % base) -5 % gel benzonatate (TESSALON PERLE) 100 mg capsule loratadine (CLARITIN) 10 mg tablet predniSONE (DELTASONE) 10 mg tablet SOOLANTRA 1 % Health Maintenance Spirometry Influenza Vaccine(1) Covid-19 Vaccine( season)@ Review Of Systems Constitutional: (+) fatigue, (-) fever Ears/Nose/Mouth/Throat: (+) ear fullness, (+) ear pain, (+) congestion, (-) sore throat Respiratory: (+) cough Genitourinary: (+) decreased libido Physical Exam BP 118/78 Pulse 105 Resp 16 Wt 72.6 kg (160 lb) LMP 07/06/2024 (Exact Date) SpO2 99% BMI 27.90 kg/m? GENERAL: NAD, alert and oriented. SKIN: Unremarkable, no rash or skin lesions. HEAD: Normocephalic. EYES: PERRLA, EOMI, conjunctiva clear. OROPHARYNX: Lips, mucosa, and tongue normal, good dentition. No oral lesions noted. NECK: Supple, no lymphadenopathy, normal thyroid, no carotid bruits. LUNGS: Clear to auscultation bilaterally, no wheezes/rhonchi/rales. HEART: Regular rate and rhythm, no murmurs. No ectopy. EXTREMITIES: Normal, no deformities, no skin discoloration, no edema. NEURO: Awake, alert and oriented x3, cranial nerves II-XII grossly intact, normal gait, no involuntary motions. Assessment and Plan 1. Acute upper respiratory infection (J06.9) Allergic rhinitis, unspecified seasonality, unspecified trigger (J30.9) Symptoms include congestion, cough, and ear fullness with mild fever. Physical exam reveals bulging tympanic membrane on the right side, suggesting eustachian tube dysfunction likely secondary to viral infection and allergic rhinitis. - Prescribed Tessalon Perles for cough management. - Recommended loratadine for allergy symptoms. - Advised to continue using decongestants as needed, but not exceeding 5 days of continuous use. - Monitor symptoms and report if cough worsens or persists, indicating possible bronchitis. 2. Generalized anxiety disorder (F41.1) Current moderate episode of major depressive disorder without prior episode (HCC) (F32.1) Improvement in emotional control and reduction in crying episodes since starting sertraline. Initial side effects included diarrhea and fatigue, managed by adjusting dosing schedule to evenings. Patient is also engaged in regular therapy sessions. - Continue sertraline at current dose, taken in the evening. - Maintain bi-weekly therapy sessions. - Monitor for any changes in symptoms or side effects. Voice recognition software was used to compose this office note. Please excuse any unintended typographical errors. The patient consented to the use of ambient AI software for draft documentation of the visit consistent with [facility]?s Notice of Privacy Practices. Yara Oropeza [facility]03-21-2025 History of Present illness Narrative* Yara Oropeza MD - 08/10/2024 10:55 AM EDT Reason for Visit Follow up anxiety, has URI symptoms HPI Maribel is a 34-year-old female presenting with congestion and cough, as well as a follow-up for sertraline use. Maribel reports onset of congestion and cough over the past week, beginning after a weekend of fatigue and nasal congestion. She notes frequent rhinorrhea and has been using Sudafed, which has providedsome relief. She also reports otalgia and a sensation of ear fullness, particularly in the right ear, with occasional popping and a feeling of drainage, though no actual fluid is observed. She experienced a sore throat last Tuesday but denies any current pharyngitis. She reports a low-grade fever of99.8 degreeF. She has taken three at-home COVID-19 tests, all of which were negative. She inquires about the possibility of influenza. Maribel is also following up on her sertraline use, which she started recently. She reports improved emotional control and a reduction in episodes of crying. Initially, she experienced diarrhea after taking a full dose instead of the prescribed half dose for the first week. She also noted fatigue approximately one hour after taking the medication, which led her to gradually transition to taking it in the evenings around dinner time. She reports that this adjustment has been beneficial. She deniesany issues with decreased libido. She has resumed bi-weekly therapy sessions and feels more in control of her emotions. She consumes one glass of red wine daily. Social History Tobacco Use Smoking status: Never Smokeless tobacco: Never Vaping Use Vaping status: Never Used Substance Use Topics Alcohol use: Yes Comment: Occasionally Drug use: No Past medical history, appointments, medications, allergies reviewed. Pertinent Lab/Diagnostic Studies are reviewed and discussed today Current Outpatient Medications: sertraline (ZOLOFT) 50 mg tablet Clindamycin-Benzoyl Peroxide 1.2 %(1 % base) -5 % gel benzonatate (TESSALON PERLE) 100 mg capsule loratadine (CLARITIN) 10 mg tablet predniSONE (DELTASONE) 10 mg tablet SOOLANTRA 1 % Health Maintenance Spirometry Influenza Vaccine(1) Covid-19 Vaccine( season)@ Review Of Systems Constitutional: (+) fatigue, (-) fever Ears/Nose/Mouth/Throat: (+) ear fullness, (+) ear pain, (+) congestion, (-) sore throat Respiratory: (+) cough Genitourinary: (+) decreased libido Physical Exam BP 118/78 Pulse 105 Resp 16 Wt 72.6 kg (160 lb) LMP 07/06/2024 (Exact Date) SpO2 99% BMI 27.90 kg/m GENERAL: NAD, alert and oriented. SKIN: Unremarkable, no rash or skin lesions. HEAD: Normocephalic. EYES: PERRLA, EOMI, conjunctiva clear. OROPHARYNX: Lips, mucosa, and tongue normal, good dentition. No oral lesions noted. NECK: Supple, no lymphadenopathy, normal thyroid, no carotid bruits. LUNGS: Clear to auscultation bilaterally, no wheezes/rhonchi/rales. HEART: Regular rate and rhythm, no murmurs. No ectopy. EXTREMITIES: Normal, no deformities, no skin discoloration, no edema. NEURO: Awake, alert and oriented x3, cranial nerves II-XII grossly intact, normal gait, no involuntary motions. Assessment and Plan 1. Acute upper respiratory infection (J06.9) Allergic rhinitis, unspecified seasonality, unspecified trigger (J30.9) Symptoms include congestion, cough, and ear fullness with mild fever. Physical exam reveals bulgingtympanic membrane on the right side, suggesting eustachian tube dysfunction likely secondary to viral infection and allergic rhinitis. - Prescribed Tessalon Perles for cough management. - Recommended loratadine for allergy symptoms. - Advised to continue using decongestants as needed, but not exceeding 5 days of continuous use. - Monitor symptoms and report if cough worsens or persists, indicating possible bronchitis. 2. Generalized anxiety disorder (F41.1) Current moderate episode of major depressive disorder without prior episode (HCC) (F32.1) Improvement in emotional control and reduction in crying episodes since starting sertraline. Initial side effects included diarrhea and fatigue, managed by adjusting dosing schedule to evenings. Patient is also engaged in regular therapy sessions. - Continue sertraline at current dose, taken in the evening. - Maintain bi-weekly therapy sessions. - Monitor for any changes in symptoms or side effects. Voice recognition software was used to compose this office note. Please excuse any unintended typographical errors. The patient consented to the use of [employer] software for draft documentation of the visit consistent with [facility] s Notice of Privacy Practices. Yara Oropeza MD documented in this encounterM[facility]02-24[facility]25 Instructions* Patient Instructions* Yara Oropeza MD - 07/16/2024 9:55 AM EST Start with taking 25 mgs daily for a week and then increase to 50 mgs daily. documented in this encounterM[facility]02-24-[facility]25 NoteHNO ID: [id number] Author: YARA OROPEZA MD Service: ? Author Type: Physician Type: Progress Notes Filed: 07/16/2024 17:55 Note Text: CC: Patient presents with: Mental health AND weight gain HPI Tova Brennan is a 33 year old female who presents today for routine follow up. Anxiety and Depression: she has a long standing history of anxiety and depression. She had gone through counseling for a while and was exited as she was doing well. Since then she quit medications and counseling. Some stressors. recently which could be a stressor but most identified stressor is her work, which is very stressful. Has felt more tired than usual and sleeping 12 hours and taking long naps. Has also experienced abnormal periods that are felt to be result of cysts. Also is not as active as typical and gaining weight. Denies snoring or any witnessed apnea. Sleep: Is described as normal. Alcohol use: drinks approximately 1 drink a day Drug use: No Appetite: good Suicidal Thoughts: No suicidal or homicidal ideation, intent or plan Acne: currently not on the doxy and spironolactone, was advised to stop as she is hoping to get in the near future. REVIEW OF SYSTEMS General: no fevers, no chills, no night sweats, no recurrent infections, no change in appetite, no change in energy, and no significant changes in weight Respiratory: no cough, no wheezing, no shortness of breath, no hemoptysis Cardiovascular: no chest pain, no chest pressure, no palpitations, and no swelling Psych: PHQ 2 is 0 Endocrine: no cold intolerance, no heat intolerance, no polyuria, no polyphagia, and no polydipsia Neurologic: No headache, weakness, syncope. PAST MEDICAL HISTORY Diagnosis Date Adjustment disorder with depressed mood 07/15/2008 Allergic rhinitis 11/29/2011 Asthma 11/29/2011 Excessive or frequent menstruation Heavy periods Generalized anxiety disorder 07/25/2015 see scanned documents Hemorrhagic ovarian cyst 07/30/2020 right ovary Major depressive disorder 07/25/2015 See scanned documents Other acne PAST SURGICAL HISTORY Procedure Laterality Date NONE ALLERGIES Patient has no known allergies. MEDICATIONS Clindamycin-Benzoyl Peroxide 1.2 %(1 % base) -5 % gel Apply once daily to all areas of acne at bedtime. will bleach clothes until dry. Azelaic Acid 15 % gel Apply to the affected areas once daily predniSONE (DELTASONE) 10 mg tablet Take 4 tabs daily for 3 days, then 2 tabs daily for 3 days, then 1 tab daily for 3 days with food. FLUoxetine (PROZAC) 20 mg capsule Take 1 capsule by mouth once daily. (Patient not taking: Reported on 01/20/2024) doxycycline 20 mg tablet Take 1 tablet by mouth twice daily. Ordered by dermatology (Patient not taking: Reported on 01/20/2024) spironolactone (ALDACTONE) 50 mg tablet Take 1 tablet by mouth once daily. (Patient not taking: Reported on 01/20/2024) SOOLANTRA 1 % (Patient not taking: Reported on 01/20/2024) FAMILY HISTORY Problem Relation Age of Onset Diabetes Mother Diabetes Maternal Grandmother Coronary Artery Disease Maternal Grandmother Thyroid Maternal Grandmother Cancer Paternal Grandfather lung-smoker Coronary Artery Disease Paternal Grandfather Breast Cancer Paternal Aunt Social History Tobacco Use Smoking status: Never Smokeless tobacco: Never Vaping Use Vaping status: Never Used Substance Use Topics Alcohol use: Yes Comment: Occasionally Drug use: No PHYSICAL EXAM BP 124/90 Pulse 95 Resp 16 Wt 73.8 kg (162 lb 9.6 oz) LMP 07/06/2024 (Exact Date) SpO2 99% BMI 28.35 kg/m? General Appearance: well appearing, in no acute distress, alert Pysch: mood and affect broad and appropriate Skin: Skin color, texture, turgor normal for age; Eyes: conjunctiva pink and moist, no icterus, sclera white, non-injected Neck: Thyroid normal size and symmetric without palpable nodules, No adenopathy Lymph nodes: No cervical lymphadenopathy, No supraclavicular lymphadenopathy, Lungs: Lungs clear to auscultation. No wheezing, rhonchi, rales. Heart: RRR without murmur, gallop, or rubs. No ectopy Health maintenance reviewed with patient: Spirometry Never done Influenza Vaccine(1) due on 01/22/2024 Covid-19 Vaccine( season) due on 01/22/2024 Annual PCP Team Chronic Disease Visit due on 08/07/2024 Cervical Cancer Screening due on 07/21/2028 DTaP,Tdap,Td Vaccine(9 - Td or Tdap) due on 08/15/2029 Hepatitis B Vaccine Completed Hepatitis C Screening Completed HIV Screening Completed DATA REVIEWED: Most recent labs ASSESSMENT/PLAN: 1. Anxiety and depression - ICD9: 300.00, 311, ICD10: F41.9, F32.A - Zoloft was started. - Discussed SSRI's in detail, their side effects including weight gain in some, sexual side effects, that it needs to build up in their system and usually in the 3rd week they will start feeling the effects. Also discussed that each SSRI may affect different (more content not included)...[facility]02-24-2025 History of Present illness Narrative* Yara Oropeza MD - 07/16/2024 8:47 AM EST CC: Patient presents with: Mental health & weight gain HPI Tova Brennan is a 33 year old female who presents today for routine follow up. Anxiety and Depression: she has a long standing history of anxiety and depression. She had gone through counseling for a while and was exited as she was doing well. Since then she quit medications and counseling. Some stressors. recently which could be a stressor but most identified stressor is her work, which is very stressful. Has felt more tired than usual and sleeping 12 hours and taking long naps. Has also experienced abnormal periods that are felt to be result of cysts. Also is not as active as typical and gaining weight. Denies snoring or any witnessed apnea. Sleep: Is described as normal. Alcohol use: drinks approximately 1 drink a day Drug use: No Appetite: good Suicidal Thoughts: No suicidal or homicidal ideation, intent or plan Acne: currently not on the doxy and spironolactone, was advised to stop as she is hoping to get in the near future. REVIEW OF SYSTEMS General: no fevers, no chills, no night sweats, no recurrent infections, no change in appetite, no change in energy, and no significant changes in weight Respiratory: no cough, no wheezing, no shortness of breath, no hemoptysis Cardiovascular: no chest pain, no chest pressure, no palpitations, and no swelling Psych: PHQ 2 is 0 Endocrine: no cold intolerance, no heat intolerance, no polyuria, no polyphagia, and no polydipsia Neurologic: No headache, weakness, syncope. PAST MEDICAL HISTORY Diagnosis Date Adjustment disorder with depressed mood 07/15/2008 Allergic rhinitis 11/29/2011 Asthma 11/29/2011 Excessive or frequent menstruation Heavy periods Generalized anxiety disorder 07/25/2015 see scanned documents Hemorrhagic ovarian cyst 07/30/2020 right ovary Major depressive disorder 07/25/2015 See scanned documents Other acne PAST SURGICAL HISTORY Procedure Laterality Date NONE ALLERGIES Patient has no known allergies. MEDICATIONS Clindamycin-Benzoyl Peroxide 1.2 %(1 % base) -5 % gel Apply once daily to all areas of acne at bedtime. will bleach clothes until dry. Azelaic Acid 15 % gel Apply to the affected areas once daily predniSONE (DELTASONE) 10 mg tablet Take 4 tabs daily for 3 days, then 2 tabs daily for 3 days, then 1 tab daily for 3 days with food. FLUoxetine (PROZAC) 20 mg capsule Take 1 capsule by mouth once daily. (Patient not taking: Reportedon 01/20/2024) doxycycline 20 mg tablet Take 1 tablet by mouth twice daily. Ordered by dermatology (Patient not taking: Reported on 01/20/2024) spironolactone (ALDACTONE) 50 mg tablet Take 1 tablet by mouth once daily. (Patient not taking: Reported on 01/20/2024) SOOLANTRA 1 % (Patient not taking: Reported on 01/20/2024) FAMILY HISTORY Problem Relation Age of Onset Diabetes Mother Diabetes Maternal Grandmother Coronary Artery Disease Maternal Grandmother Thyroid Maternal Grandmother Cancer Paternal Grandfather lung-smoker Coronary Artery Disease Paternal Grandfather Breast Cancer Paternal Aunt Social History Tobacco Use Smoking status: Never Smokeless tobacco: Never Vaping Use Vaping status: Never Used Substance Use Topics Alcohol use: Yes Comment: Occasionally Drug use: No PHYSICAL EXAM BP 124/90 Pulse 95 Resp 16 Wt 73.8 kg (162 lb 9.6 oz) LMP 07/06/2024 (Exact Date) SpO2 99% BMI 28.35 kg/m General Appearance: well appearing, in no acute distress, alert Pysch: mood and affect broad and appropriate Skin: Skin color, texture, turgor normal for age; Eyes: conjunctiva pink and moist, no icterus, sclera white, non-injected Neck: Thyroid normal size and symmetric without palpable nodules, No adenopathy Lymph nodes: No cervical lymphadenopathy, No supraclavicular lymphadenopathy, Lungs: Lungs clear to auscultation. No wheezing, rhonchi, rales. Heart: RRR without murmur, gallop, or rubs. No ectopy Health maintenance reviewed with patient: Spirometry Never done Influenza Vaccine(1) due on 01/22/2024 Covid-19 Vaccine( season) due on 01/22/2024 Annual PCP Team Chronic Disease Visit due on 08/07/2024 Cervical Cancer Screening due on 07/21/2028 DTaP,Tdap,Td Vaccine(9 - Td or Tdap) due on 08/15/2029 Hepatitis B Vaccine Completed Hepatitis C Screening Completed HIV Screening Completed DATA REVIEWED: Most recent labs ASSESSMENT/PLAN: 1. Anxiety and depression - ICD9: 300.00, 311, ICD10: F41.9, F32.A - Zoloft was started. - Discussed SSRI's in detail, their side effects including weight gain in some, sexual side effects, that it needs to build up in their system and usually in the 3rd week they will start feeling the effects. Also discussed that each SSRI may affect differently , might have to try a couple before finding out a perfect fit. -Advised patient to practice on getting better before she considers and so to use protection. 40 minutes with the patient today most of it was counseling directly. Around 36 minutes of counseling Yara Oropeza MD documented [facility] NotePatient Outreach ([facility]) TOVA BRENNAN ([id number]) 1990 F Date Time Provider Department 05/29/24 YARA ORPOEZA [facility] During your visit today, we recorded the following information about you: Allergies As of Date: 05/29/2024 (No Known Allergies) Date Reviewed: 01/20/2024 Reviewed by: Zion Marley APRN.SENIOR SQL DATABASE DEVELOPER - Fully Assessed Visit Diagnosis:Medication management [Z79.899] Order(s):BASIC METABOLIC PANEL [SQBMP] Order #: [id number] FUTURE Prescriptions as of 06/01/2024 - Clindamycin-Benzoyl Peroxide 1.2 %(1 % base) -5 % gel Apply once daily to all areas of acne at bedtime. will bleach clothes until dry. - predniSONE (DELTASONE) 10 mg tablet Take 4 tabs daily for 3 days, then 2 tabs daily for 3 days, then 1 tab daily for 3 days with food. - FLUoxetine (PROZAC) 20 mg capsule Take 1 capsule by mouth once daily. - doxycycline 20 mg tablet Take 1 tablet by mouth twice daily. Ordered by dermatology - Azelaic Acid 15 % gel Apply to the affected areas once daily - spironolactone (ALDACTONE) 50 mg tablet Take 1 tablet by mouth once daily. - SOOLANTRA 1 % Problem List As Of Date 05/29/2024 Noted Resolved Cough [R05.9] 08/07/2007 08/18/2016 Allergic rhinitis [J30.9] 11/29/2011 Asthma [J45.909] 11/29/2011 Anxiety and depression [F41.9, F32.A] 07/16/2015 Raynaud's phenomenon without gangrene [I73.00] 05/05/2019 Hemorrhagic ovarian cyst [N83.209] 07/30/2020 Encounter Status:Closed by [employer], PRODUSER on 06/01/24[facility] 01-20-2024 History of Present illness Narrative* Zion Marley, LIZZETTE.SENIOR SQL DATABASE DEVELOPER - 01/20/2024 5:01 PM EDT Images from the original note were not included. Subjective HPI Nontoxic-appearing female presents urgent care chief complaint rash. Duration of symptoms 5 days. Associated pruritic rash. Slightly painful she pushes over the area. Has been using Kenalog cream this is helped a little. No recent medication changes antibiotic use. Overall feels well. Denies any fever body aches chills productive cough chest pain shortness of breath pleuritic pain hemoptysis nausea vomiting abdominal pain change in bowel or bladder habits. Past medical history prescription medication use and allergies reviewed. Denies chance of . Is not breast-feeding. .Patient presents with: Rash: Started on R hip/ flank, now widespread x5 days PAST MEDICAL HISTORY 07/15/2008: Adjustment disorder with depressed mood 11/29/2011: Allergic rhinitis 11/29/2011: Asthma No date: Excessive or frequent menstruation Comment: Heavy periods 07/25/2015: Generalized anxiety disorder Comment: see scanned documents 07/30/2020: Hemorrhagic ovarian cyst Comment: right ovary 07/25/2015: Major depressive disorder Comment: See scanned documents No date: Other acne PAST SURGICAL HISTORY No date: NONE ALLERGIES Patient has no known allergies. MEDICATIONS Clindamycin-Benzoyl Peroxide 1.2 %(1 % base) -5 % gel Apply once daily to all areas of acne at bedtime. will bleach clothes until dry. Azelaic Acid 15 % gel Apply to the affected areas once daily predniSONE (DELTASONE) 10 mg tablet Take 4 tabs daily for 3 days, then 2 tabs daily for 3 days, then 1 tab daily for 3 days with food. FLUoxetine (PROZAC) 20 mg capsule Take 1 capsule by mouth once daily. (Patient not taking: Reportedon 01/20/2024) doxycycline 20 mg tablet Take 1 tablet by mouth twice daily. Ordered by dermatology (Patient not taking: Reported on 01/20/2024) spironolactone (ALDACTONE) 50 mg tablet Take 1 tablet by mouth once daily. (Patient not taking: Reported on 01/20/2024) SOOLANTRA 1 % (Patient not taking: Reported on 01/20/2024) FAMILY HISTORY Problem Relation Age of Onset Diabetes Mother Diabetes Maternal Grandmother Coronary Artery Disease Maternal Grandmother Thyroid Maternal Grandmother Cancer Paternal Grandfather lung-smoker Coronary Artery Disease Paternal Grandfather Breast Cancer Paternal Aunt Social History Tobacco Use Smoking status: Never Smokeless tobacco: Never Vaping Use Vaping status: Never Used Substance Use Topics Alcohol use: Yes Comment: Occasionally Drug use: No BP 149/79 Pulse 92 Temp 37.6 C (99.6 F) Resp 18 Wt 73.6 kg (162 lb 4.1 oz) LMP 11/16/2023 (Exact Date) SpO2 100% BMI 28.29 kg/m Review of Systems Constitutional: Negative for chills, fever and malaise/fatigue. HENT: Negative for congestion, ear discharge, ear pain, sinus pain and sore throat. Eyes: Negative for blurred vision, pain, discharge and redness. Respiratory: Negative for cough, hemoptysis, sputum production, shortness of breath, wheezing and stridor. Cardiovascular: Negative for chest pain. Gastrointestinal: Negative for abdominal pain, diarrhea, nausea and vomiting. Musculoskeletal: Negative for myalgias. Skin: Positive for itching and rash. Neurological: Negative for dizziness and headaches. Objective Physical Exam Constitutional: General: She is not in acute distress. Appearance: She is not diaphoretic. HENT: Head: Normocephalic. Jaw: No trismus, tenderness, swelling or pain on movement. Mouth/Throat: Mouth: Mucous membranes are moist. Pharynx: Oropharynx is clear. Uvula midline. No pharyngeal swelling, oropharyngeal exudate, posterior oropharyngeal erythema or uvula swelling. Eyes: Conjunctiva/sclera: Conjunctivae normal. Pupils: Pupils are equal, round, and reactive to light. Cardiovascular: Rate and Rhythm: Normal rate and regular rhythm. Heart sounds: Normal heart sounds. Pulmonary: Effort: Pulmonary effort is normal. No tachypnea, accessory muscle usage or respiratory distress. Breath sounds: Normal breath sounds. No stridor. No wheezing, rhonchi or rales. Abdominal: General: There is no distension. Palpations: Abdomen is soft. Tenderness: There is no abdominal tenderness. There is no guarding or rebound. Musculoskeletal: Cervical back: Normal range of motion and neck supple. No edema, erythema, rigidity or tenderness. No pain with movement. Normal range of motion. Lymphadenopathy: Cervical: No cervical adenopathy. Skin: General: Skin is warm and dry. Comments: Macular papular rash fluid-filled vesicles linear pattern noted. No adenopathy noted. No streaking. No evidence of secondary bacterial infection. Neurological: Mental Status: She is alert and oriented to person, place, and time. ASSESSMENT/PLAN: 1. Rash - ICD9: 782.1, ICD10: R21 Diagnosed with rash. Treat as contact dermatitis. No evidence of bacterial infection. Spares palms or hands. No mucosal membrane involvement. Placed on prednisone. Red flags for prompt ER evaluation discussed. Patient was educated on supportive therapies. Patient will follow up with primary care provider as needed. Patient was instructed to immediately proceed to emergency room for any new, worsening, or symptoms lasting longer than anticipated. The patient's clinical presentation is otherwise unremarkable at this time. Based on exam and clinical finding, the patient is stable for discharge. Plan of care was discussed with patient. Patient verbalizes understanding and agrees to plan of care. This note was generated using [employer] software. It may contain errors in wording, punctuation, or spelling. Zion Marley APRN.BELA documented in this [facility]07-09-[facility]24 History of Present illness Narrative* Zion Marley APRN.SENIOR SQL DATABASE DEVELOPER - 11/29/2023 4:17 PM EDT Subjective HPI Nontoxic-appearing female presents urgent care chief complaint flulike symptoms. Duration of symptoms 4 days. Associated symptoms body aches chills fever ear pain nasal congestion headache fatigue. States had a fever of 101.8 yesterday. Did use acetaminophen before bed last night. No OTC medications today. Fever free today. Feeling slightly better but not much. Presents today for evaluation. Recently returned home from [facility]. Did take 2 negative COVID home test. Denies any productive cough chest pain shortness of breath pleuritic pain hemoptysis vomiting abdominal pain change in bowelor bladder habits. Past medical history prescription medications allergies reviewed. .Patient presents with: Nausea: Fatigue, body aches, bilat ear pain, fever x 4 days PAST MEDICAL HISTORY Diagnosis Date Adjustment disorder with depressed mood 07/15/2008 Allergic rhinitis 11/29/2011 Asthma 11/29/2011 Excessive or frequent menstruation Heavy periods Generalized anxiety disorder 07/25/2015 see scanned documents Hemorrhagic ovarian cyst 07/30/2020 right ovary Major depressive disorder 07/25/2015 See scanned documents Other acne PAST SURGICAL HISTORY Procedure Laterality Date NONE ALLERGIES Patient has no known allergies. MEDICATIONS FLUoxetine (PROZAC) 20 mg capsule Take 1 capsule by mouth once daily. doxycycline 20 mg tablet Take 1 tablet by mouth twice daily. Ordered by dermatology Azelaic Acid 15 % gel Apply to the affected areas once daily spironolactone (ALDACTONE) 50 mg tablet Take 1 tablet by mouth once daily. SOOLANTRA 1 % FAMILY HISTORY Problem Relation Age of Onset Diabetes Mother Diabetes Maternal Grandmother Coronary Artery Disease Maternal Grandmother Thyroid Maternal Grandmother Cancer Paternal Grandfather lung-smoker Coronary Artery Disease Paternal Grandfather Breast Cancer Paternal Aunt Social History Tobacco Use Smoking status: Never Smokeless tobacco: Never Vaping Use Vaping Use: Never used Substance Use Topics Alcohol use: Yes Comment: Occasionally Drug use: No BP 105/68 Pulse 74 Temp 37.4 C (99.3 F) Resp 18 Wt 72 kg (158 lb 11.7 oz) LMP 11/16/2023 (Exact Date) SpO2 98% BMI 27.68 kg/m Review of Systems Constitutional: Positive for chills, fever and malaise/fatigue. HENT: Positive for congestion and ear pain. Negative for ear discharge, sinus pain and sore throat. Eyes: Negative for blurred vision, pain, discharge and redness. Respiratory: Negative for cough, hemoptysis, sputum production, shortness of breath, wheezing and stridor. Cardiovascular: Negative for chest pain. Gastrointestinal: Negative for abdominal pain, diarrhea, nausea and vomiting. Musculoskeletal: Positive for myalgias. Skin: Negative for itching and rash. Neurological: Positive for headaches. Negative for dizziness. Objective Physical Exam Constitutional: General: She is not in acute distress. Appearance: She is not diaphoretic. HENT: Head: Normocephalic. Jaw: No trismus, tenderness, swelling or pain on movement. Right Ear: Tympanic membrane, ear canal and external ear normal. Left Ear: Tympanic membrane, ear canal and external ear normal. Nose: Congestion present. Mouth/Throat: Mouth: Mucous membranes are moist. Pharynx: Oropharynx is clear. Uvula midline. No pharyngeal swelling, oropharyngeal exudate, posterior oropharyngeal erythema or uvula swelling. Eyes: Conjunctiva/sclera: Conjunctivae normal. Pupils: Pupils are equal, round, and reactive to light. Cardiovascular: Rate and Rhythm: Normal rate and regular rhythm. Heart sounds: Normal heart sounds. Pulmonary: Effort: Pulmonary effort is normal. No tachypnea, accessory muscle usage or respiratory distress. Breath sounds: Normal breath sounds. No stridor. No wheezing, rhonchi or rales. Abdominal: General: There is no distension. Palpations: Abdomen is soft. Tenderness: There is no abdominal tenderness. There is no guarding or rebound. Musculoskeletal: Cervical back: Normal range of motion and neck supple. No edema, erythema, rigidity or tenderness. No pain with movement. Normal range of motion. Lymphadenopathy: Cervical: No cervical adenopathy. Skin: General: Skin is warm and dry. Neurological: Mental Status: She is alert and oriented to person, place, and time. ASSESSMENT/PLAN: 1. Viral illness - ICD9: 079.99, ICD10: B34.9 Patient nontoxic-appearing. No evidence of bacterial infection noted today's exam. Afebrile withoutthe use of fever reducing medications. Treat as viral etiology. Patient was educated on supportive therapies. Patient will follow up with primary care provider as needed. Patient was instructed to immediately proceed to emergency room for any new, worsening, or symptoms lasting longer than anticipated. The patient's clinical presentation is otherwise unremarkable at this time. Based on exam and clinical finding, the patient is stable for discharge. Plan of care was discussed with patient. Patient verbalizes understanding and agrees to plan of care. This note was generated using [employer] software. It may contain errors in wording, punctuation, or spelling. Zion Marley APRN.BELA documented in this encounterM[facility]06[facility] History of Present illness Narrative* Tyron Babcock MD - 11/19/2023 12:46 PM EDT Patient presents with: Rash: itching all over x 6/16 HPI: Rash: Location: arms and legs Duration: almost 2 weeks Pruritis: Yes Pain: No Change: spreading to new spots Bleeding/ulceration/blister/pustule: red dots and patches Contacts with rash: her dad may have the rash Exposure: No new soaps, detergents, fabric softeners, lotions. Outdoor exposure: [place]. Change in medications: No. Recent illness: No. Treatment: tree dry, benadryl lotion MEDICATIONS: FLUoxetine (PROZAC) 20 mg capsule Take 1 capsule by mouth once daily. doxycycline 20 mg tablet Take 1 tablet by mouth twice daily. Ordered by dermatology Azelaic Acid 15 % gel Apply to the affected areas once daily spironolactone (ALDACTONE) 50 mg tablet Take 1 tablet by mouth once daily. SOOLANTRA 1 % ALLERGIES: ALLERGIES No Known Allergies VITALS: BP 106/64 Pulse 80 Temp 36.8 C (98.2 F) Resp 16 Wt 74 kg (163 lb 0.8 oz) LMP 07/04/2023 (Exact Date) SpO2 98% BMI 28.43 kg/m PHYSICAL EXAM: GEN: pleasant, no acute distress, alert SKIN: scattered excoriated rash (mixture of small papules, patches, linear mejia) on the arms and legs. Makeup covered slightly raised patch left chin. ASSESSMENT/PLAN: 1. Contact dermatitis due to plant - ICD9: 692.6, ICD10: L25.5 - Oral Steriod tx -Prednisone taper due to presence on the face and widespread distribution. Reports increased hunger side effect. - discussed skin care of rash - follow up if symptoms persist or worsen. Tyron Babcock MD documented in this encounterM[facility]06-[facility] Telephone encounter Note * Telephone Encounter - Virginia Ferrer MD - 11/10/2023 4:31 PM EDT See result note Repeat pelvic US ordered [facility]06-20-2024 Miscellaneous Notes* Telephone Encounter - Virginia Ferrer MD - 11/10/2023 4:31 PM EDT See result note Repeat pelvic US ordered documented in this encounterM[facility]03-18-2024 Miscellaneous Notes* Telephone Encounter - Virginia Ferrer MD - 08/08/2023 8:21 AM EDT See result note Repeat pelvic US ordered documented in this encounterM[facility]03-18-[facility] History of Present illness Narrative* Opal Camp APRN.SENIOR SQL DATABASE DEVELOPER - 08/08/2023 8:06 AM EDT CC: Patient presents with: Recheck: 6 month follow up HPI Tova Brennan is a 33 year old female who presents today for routine follow up. Acne: Taking spironolactone and doxy and overall is controlled. Currently with small breakout. Anxiety and Depression: Feels well controlled at this time. 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 Sleep: is described as normal Alcohol use: drinks approximately 1 drink a day Drug use: No Appetite: good Suicidal Thoughts: No suicidal or homicidal ideation, intent or plan Has felt more tired than usual and sleeping 12 hours and taking long naps. Has also experienced abnormal periods that are felt to be result of cysts. Also is not as active as typical and gaining weight. Denies snoring or any witnessed apnea. REVIEW OF SYSTEMS General: no fevers, no chills, no night sweats, no recurrent infections, no change in appetite, no change in energy, and no significant changes in weight Respiratory: no cough, no wheezing, no shortness of breath, no hemoptysis Cardiovascular: no chest pain, no chest pressure, no palpitations, and no swelling Psych: PHQ 2 is 0 Endocrine: no cold intolerance, no heat intolerance, no polyuria, no polyphagia, and no polydipsia Neurologic: No headache, weakness, syncope. PAST MEDICAL HISTORY Diagnosis Date Adjustment disorder with depressed mood 07/15/2008 Allergic rhinitis 11/29/2011 Asthma 11/29/2011 Excessive or frequent menstruation Heavy periods Generalized anxiety disorder 07/25/2015 see scanned documents Hemorrhagic ovarian cyst 07/30/2020 right ovary Major depressive disorder 07/25/2015 See scanned documents Other acne PAST SURGICAL HISTORY Procedure Laterality Date NONE ALLERGIES Patient has no known allergies. MEDICATIONS FLUoxetine (PROZAC) 20 mg capsule Take 1 capsule by mouth once daily. doxycycline 20 mg tablet Take 1 tablet by mouth twice daily. Ordered by dermatology Azelaic Acid 15 % gel Apply to the affected areas once daily spironolactone (ALDACTONE) 50 mg tablet Take 1 tablet by mouth once daily. SOOLANTRA 1 % FAMILY HISTORY Problem Relation Age of Onset Diabetes Mother Diabetes Maternal Grandmother Coronary Artery Disease Maternal Grandmother Thyroid Maternal Grandmother Cancer Paternal Grandfather lung-smoker Coronary Artery Disease Paternal Grandfather Breast Cancer Paternal Aunt Social History Tobacco Use Smoking status: Never Smokeless tobacco: Never Vaping Use Vaping Use: Never used Substance Use Topics Alcohol use: Yes Comment: Occasionally Drug use: No PHYSICAL EXAM BP 118/76 Pulse 80 Resp 16 Wt 69.4 kg (153 lb) LMP 07/04/2023 (Exact Date) SpO2 97% BMI26.68 kg/m General Appearance: well appearing, in no acute distress, alert Pysch: mood and affect broad and appropriate Skin: Skin color, texture, turgor normal for age; Eyes: conjunctiva pink and moist, no icterus, sclera white, non-injected Neck: Thyroid normal size and symmetric without palpable nodules, No adenopathy Lymph nodes: No cervical lymphadenopathy, No supraclavicular lymphadenopathy, Lungs: Lungs clear to auscultation. No wheezing, rhonchi, rales. Heart: RRR without murmur, gallop, or rubs. No ectopy Health maintenance reviewed with patient: Covid-19 Vaccine( season) due on 01/21/2023 Influenza Vaccine(1) due on 11/20/2023 Spirometry due on 02/08/2024 Annual PCP Team Chronic Disease Visit due on 02/08/2024 Pap Testing due on 07/21/2028 HPV Testing due on 07/21/2028 DTaP,Tdap,Td Vaccine(9 - Td or Tdap) due on 08/15/2029 Hepatitis B Vaccine Completed HPV Vaccine Completed Hepatitis C Screening Completed HIV Screening Completed DATA REVIEWED: Most recent labs ASSESSMENT/PLAN: 1. Anxiety and depression - ICD9: 300.00, 311, ICD10: F41.9, F32.A (primary diagnosis) Controlled on current treatment - Reviewed concept of neurochemical imbalance wth depression/anxiety, treatment options and benefits of counseling in combination with medication. Also reviewed benefits of sleep hygeine, diet and exercise - Instructed patient to contact office or [id number] after-hours promptly should condition worsen or any new symptoms appear. - Counsel[facility] and after hours crisis line 2. Other fatigue - ICD9: 780.79, ICD10: R53.83 - unsure on cause. Possibly result of busy past 6 months and is more sedentary now. Since she has had the abnormal menses concern is for thyroid or anemia related to iron deficiency - TSH BLD - CBC + DIFF 3. Abnormal menses - ICD9: 626.9, ICD10: N92.6 As above - TSH BLD - CBC + DIFF 4. Acne, unspecified acne type - ICD9: 706.1, ICD10: L70.9 Controlled with current treatment Prescription instructions reviewed with patient as applicable. Potential red flag symptoms discussed with the patient. Reviewed appropriate action plan to take if red flag symptoms occur. Patient agreeable to treatment plan. Opal Camp APRN.CNP documented in this encounterM[facility]03-15-2024 History of Present illness Narrative* Alexus Stanford RDMS - 08/05/2023 3:15 PM EDT Radiology Service Progress Note PATIENT NAME: Tova Brennan DATE OF SERVICE: August 05, 2023 TIME: 3:51 PM PATIENT IDENTITY VERIFICATION COMPLETED USING TWO (2) IDENTIFIERS: Name and Date of confirmedby patient verbally. FALL SCREENING: Has the patient had 2 falls in the last year or 1 fall with injury or currently using an Ambulatory Assistive Device (Walker, Cane, Wheelchair, Crutches, etc.)? No PATIENT GENDER DATA: Female. status: : No status: NO. PATIENT RELEVANT IMPLANT DATA REVIEWED: Not Applicable PATIENT PRESENTS WITH AN IMPLANTABLE OR ATTACHED GEOSPATIAL APPLICATIONS DEVELOPER: No RADIOLOGY DEPARTMENT: Ultrasound PERIPHERAL IV DATA: Not applicable SIGNED BY: Alexus Stanford RDMS RVT August 05, 2023 3:51 PM documented in this encounterM[facility]03-01-2024 History of Present illness Narrative* Virginia Ferrer MD - 07/22/2023 9:24 AM EST Pullman Clerk offered: Patient declines. Tova Brennan is a 32 year old female who presents for problem visit - DUB and pelvic pain. HPI: Starting having aches and pains a few days ago. Thought she was getting covid or flu, but never progressed to having URI symptoms. The pain is mostly in lower back and lower pelvis. Using heat for the pain. Had brown spotting yesterday and red spotting today. Prior to this episode of spotting/bleeding she was having regular, monthly menstrual cycles with 3-4 days of bleeding. Not currently on contraception. Currently not interested in contraception. Would be happy if she were to get . Just got back from [place] Was swimming and in hot weather on [place]. No fevers, chills, vomiting. Some nausea. Reports a history of ovarian cysts. H/o ASCUS pap and +HPV in 2016. 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 LMP: 07/04/2023 (Exact Date), Having periods Age at Menarche: Age at First : Age at Menopause: Director [employer] History Comments: Sexual Activity: Yes; Male Contraception: None PAST MEDICAL HISTORY Diagnosis Date Adjustment disorder with depressed mood 07/15/2008 Allergic rhinitis 11/29/2011 Asthma 11/29/2011 Excessive or frequent menstruation Heavy periods Generalized anxiety disorder 07/25/2015 see scanned documents Hemorrhagic ovarian cyst 07/30/2020 right ovary Major depressive disorder 07/25/2015 See scanned documents Other acne PAST SURGICAL HISTORY Procedure Laterality Date NONE FAMILY HISTORY Problem Relation Age of Onset Diabetes Mother Diabetes Maternal Grandmother Coronary Artery Disease Maternal Grandmother Thyroid Maternal Grandmother Cancer Paternal Grandfather lung-smoker Coronary Artery Disease Paternal Grandfather Breast Cancer Paternal Aunt Social History Tobacco Use Smoking status: Never Smokeless tobacco: Never Vaping Use Vaping Use: Never used Substance Use Topics Alcohol use: Yes Comment: Occasionally Drug use: No Current Outpatient Medications Medication Sig FLUoxetine (PROZAC) 20 mg capsule Take 1 capsule by mouth once daily. doxycycline 20 mg tablet Take 1 tablet by mouth twice daily. Ordered by dermatology Azelaic Acid 15 % gel Apply to the affected areas once daily spironolactone (ALDACTONE) 50 mg tablet Take 1 tablet by mouth once daily. SOOLANTRA 1 % No current facility-administered medications for this visit. Allergies As of Date: 07/22/2023 (No Known Allergies) Fully Assessed 07/22/2023 REVIEW OF SYSTEMS Expanded ROS: See HPI. Allergies and current medication updated:Yes EXAM: BP 120/82 Wt 151 lb 6.4 oz (68.7kg) LMP 07/04/2023 GENERAL: pleasant, female in no apparent distress HEENT: Normocephalic and atraumatic NECK: full range of motion DERMATOLOGY: Normal and without lesions CHEST: Normal inspiratory effort ABDOMEN: soft, non-tender, and no masses PELVIC: external genitalia normal, normal Bartholin's glands, urethra, Piedmont's glands, no vulvar lesions, no cervical lesions, good vaginal support, normal appearing perineal body and perianal region, scant brown blood present in vaginal vault BIMANUAL: uterus normal size, shape and consistency, no adnexal masses, and non-tender NEURO: exam grossly non-focal EXTREMITIES: normal ASSESSMENT AND PLAN: Encounter Diagnosis ICD-10-CM 1. Intermenstrual spotting N92.3 BACTERIAL VAGINOSIS NAAT JOSE JUAN/TRICHOMONAS NAAT PELVIC US WHI US FEMALE PELVIS TRANSVAG PAP TEST 2. Pelvic pain in female R10.2 BACTERIAL VAGINOSIS NAAT JOSE JUAN/TRICHOMONAS NAAT PELVIC US WHI US FEMALE PELVIS TRANSVAG PAP TEST 3. History of HPV infection Z86.19 Spotting and pelvic pain: Discussed concern for infection such as BV or yeast given clinical scenario. No concern for STD at this time. Check BV, yeast. If negative or if no improvement in symptoms after treatment of an infection, check pelvic US. Pap test today too given h/o HPV and abnormal pap. Patient currently not using contraception. Start PNV. Med list reviewed and discussed r/b of medications. She was instructed to call the prescribing providers to notify them that she is trying for . Virginia Ferrer, Medical Decision Making: Problems: Low: Acute, uncomplicated illness or injury Data: Unique test(s) ordered: 3+ Medical Decision Making Level: 3 - Low documented in this encounterM[facility]08-08-2023 History of Present illness Narrative* Kwsai Pardo, LACY - 12/28/2022 3:52 PM EDT This note was created using ProQuoriter. Subjective Tova Brennan is a 32 year old female. HPI 32-year-old female presents for right middle finger redness and swelling. Patient states that she noted she had redness of her right middle finger a couple of days ago. She tried to poke it yesterday. She states a small amount of pus came out. She does have a lot of pain nails and states she occasionally picks at them. She does not bite her nails. She denies any fevers. No drainage from the area today. No other complaints PAST MEDICAL HISTORY Diagnosis Date Adjustment disorder with depressed mood 07/15/2008 Allergic rhinitis 11/29/2011 Asthma 11/29/2011 Excessive or frequent menstruation Heavy periods Generalized anxiety disorder 07/25/2015 see scanned documents Hemorrhagic ovarian cyst 07/30/2020 right ovary Major depressive disorder 07/25/2015 See scanned documents Other acne PAST SURGICAL HISTORY Procedure Laterality Date NONE ALLERGIES Patient has no known allergies. MEDICATIONS Azelaic Acid 15 % gel Apply to the affected areas once daily FLUoxetine (PROZAC) 20 mg capsule Take 1 capsule by mouth once daily. doxycycline 20 mg tablet Take 1 tablet by mouth once daily. spironolactone (ALDACTONE) 50 mg tablet Take 1 tablet by mouth once daily. SOOLANTRA 1 % cephALEXin (KEFLEX) 500 mg capsule Take 1 capsule by mouth twice daily for 5 days. FAMILY HISTORY Problem Relation Age of Onset Diabetes Mother Diabetes Maternal Grandmother Coronary Artery Disease Maternal Grandmother Thyroid Maternal Grandmother Cancer Paternal Grandfather lung-smoker Coronary Artery Disease Paternal Grandfather Breast Cancer Paternal Aunt Social History Tobacco Use Smoking status: Never Smokeless tobacco: Never Vaping Use Vaping Use: Never used Substance Use Topics Alcohol use: Yes Comment: Occasionally Drug use: No Review of Systems Constitutional: Negative for chills and fever. HENT: Negative for congestion, ear pain and sore throat. Respiratory: Negative for cough and shortness of breath. Cardiovascular: Negative for chest pain. Gastrointestinal: Negative for diarrhea and vomiting. Skin: Positive for color change. Objective BP 108/64 Pulse 76 Temp 37.1 C (98.7 F) (Tympanic) Resp 18 Wt 65.3 kg (144 lb) LMP 07/21/2022 (Exact Date) SpO2 98% BMI 25.11 kg/m Physical Exam Vitals and nursing note reviewed. Constitutional: General: She is not in acute distress. Appearance: Normal appearance. She is not toxic-appearing. Cardiovascular: Rate and Rhythm: Normal rate and regular rhythm. Pulmonary: Effort: Pulmonary effort is normal. Breath sounds: Normal breath sounds. Skin: General: Skin is warm and dry. Findings: Erythema present. Comments: Small amount of erythema noted around the right middle finger. No felon. No tenderness over the flexor surface. No drainage. Neurological: Mental Status: She is alert. Assessment and Plan ASSESSMENT/PLAN: 1. Paronychia of finger of right hand - ICD9: 681.02, ICD10: L03.011 - Begin treatment with Cephalaxin (Keflex) -Warm soaks 4 times daily. - No lymphangetic streaking, this was defined for patient to watch for and to seek medical care immediately if appears Diagnosis and treatment plan were discussed and questions were answered to the patient's satisfaction. Pt acknowledged understanding of concepts and follow up plan. Specific signs and symptoms that would indicate the need for higher level of care were discussed in detail warranting prompt ER evaluation. LACY Larry * Kwasi Pardo PA - 12/28/2022 3:51 PM EDT This note was created using ProQuoriter. Subjective Tova Brennan is a 32 year old female. Review of Systems Objective BP 108/64 Pulse 76 Temp 37.1 C (98.7 F) (Tympanic) Resp 18 Wt 65.3 kg (144 lb) LMP 07/21/2022 (Exact Date) SpO2 98% BMI 25.11 kg/m Physical Exam Assessment and Plan documented in this encounterM[facility]05-12-[facility]23 History of Present illness Narrative* Yara Oropeza MD - 10/01/2022 2:52 PM EDT Reason for Visit Patient presents with: Follow Up: med increase - had a lot of symptoms and patient ill Tova Brennan is a 32 year old female who presents here today for Above Complaints.. Health Maintenance PNEUMOCOCCAL(1 - PCV) SPIROMETRY HPV TESTING HPI Maribel was titrated up to 20 mg of Prozac last visit. She has not been as sad or despondent since then. Her spontaneous episodes of crying have mostly resolved. She does not feel as good as she would like to but definitely much better than before. She has started a new job and that has been helping. 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 She has sore throat, congestion, some headache and some cough, earache sore throat and runny nose. All the symptoms areslowly getting better. Denies having fevers or body aches. She was able to go to school despite this. She is on Delsym and Sudafed and her home COVID test was negative. We discussed indications for antibiotics only if her sputum is green or yellow consistently. She is on azelaic acid for acne and would like me to refill it. I have refilled the medicine. She has an appointment to see Dr. Echols. No problem-specific Assessment & Plan notes found for this encounter. PAST MEDICAL HISTORY Diagnosis Date Adjustment disorder with depressed mood 07/15/2008 Allergic rhinitis 11/29/2011 Asthma 11/29/2011 Excessive or frequent menstruation Heavy periods Generalized anxiety disorder 07/25/2015 see scanned documents Hemorrhagic ovarian cyst 07/30/2020 right ovary Major depressive disorder 07/25/2015 See scanned documents Other acne PAST SURGICAL HISTORY Procedure Laterality Date NONE FAMILY HISTORY Problem Relation Age of Onset Diabetes Mother Diabetes Maternal Grandmother Coronary Artery Disease Maternal Grandmother Thyroid Maternal Grandmother Cancer Paternal Grandfather lung-smoker Coronary Artery Disease Paternal Grandfather Breast Cancer Paternal Aunt Social History Tobacco Use Smoking status: Never Smokeless tobacco: Never Vaping Use Vaping Use: Never used Substance Use Topics Alcohol use: Yes Comment: Occasionally Drug use: No Past medical history, appointments, medications, allergies reviewed. Pertinent Lab/Diagnostic Studies are reviewed and discussed today Current Outpatient Medications: FLUoxetine (PROZAC) 20 mg capsule doxycycline 20 mg tablet spironolactone (ALDACTONE) 50 mg tablet SOOLANTRA 1 % Azelaic Acid 15 % gel Review of Systems CONSTITUTIONAL: No fevers, chills night sweats, unintended weight loss CARDIOVASCULAR: No chest pain, dyspnea, palpitations, orthopnea, PND, ankle edema. PULM: No dyspnea, unexplained cough. GI: No dysphagia/odynophagia, problematic reflux, constipation, diarrhea, changes in stool habits, hematochezia, melena. : No new urinary complaints, including dysuria, gross hematuria or pyuria. NEURO: No new balance problems, peripheral weakness/paresthesias or numbness of concern. Physical Exam BP 108/56 (BP Site: Left Arm, BP Position: Sitting, BP Cuff Size: Large Adult) Pulse 104 Temp 36.9 C (98.5 F) Resp 12 Ht 161.3 cm (5' 3.5) Wt 63.5 kg (140 lb) LMP 07/21/2022 (Exact Date) SpO2 99% BMI 24.41 kg/m General appearance: Well appearing, alert, in no acute distress, well nourished. Skin: Skin color, texture, turgor normal, no suspicious rashes or lesions Head: Normocephalic, no masses, lesions, tenderness or abnormalities Eyes: Anicteric sclera. Pupils are equally round and reactive to light. Extraocular movements are intact. Lungs: Lungs clear to auscultation. No wheezing, rhonchi, rales Heart: RRR without murmur, gallop, or rubs. ASSESSMENT/PLAN: 1. Anxiety and depression - ICD9: 300.00, 311, ICD10: F41.9, F32.A (primary diagnosis) Cont the prozac 2. Acne, unspecified acne type - ICD9: 706.1, ICD10: L70.9 - AZELAIC ACID 15 % TOPICAL GEL 3. Viral illness - ICD9: 079.99, ICD10: B34.9 - Discussed viral etiology and rationale for treatment. - Symptomatic treatment with prn analgesia - Supportive care with fluids and rest Yara Oropeza MD documented in this encounterM[facility]03-10-[facility]23 History of Present illness Narrative* Yara Oropeza MD - 07/30/2022 2:57 PM EST Reason for Visit Patient presents with: Follow Up Tova Brennan is a 31 year old female who presents here today for . Above Complaints. Health Maintenance PNEUMOCOCCAL(1 - PCV) SPIROMETRY HPV TESTING HPI Started with prozac last visit , 6 weeks ago. Done better but thinks there needs to be more symptoms resolution No side effects that she is aware of. She takes the medication in the after noon. Was also started on spirolactone for acne along with doxy and her acne is better. Bp is good on thespironolactone She sees a therapist and is doing fairly well there. No problem-specific Assessment & Plan notes found for this encounter. PAST MEDICAL HISTORY Diagnosis Date Adjustment disorder with depressed mood 07/15/2008 Allergic rhinitis 11/29/2011 Asthma 11/29/2011 Excessive or frequent menstruation Heavy periods Generalized anxiety disorder 07/25/2015 see scanned documents Hemorrhagic ovarian cyst 07/30/2020 right ovary Major depressive disorder 07/25/2015 See scanned documents Other acne PAST SURGICAL HISTORY Procedure Laterality Date NONE FAMILY HISTORY Problem Relation Age of Onset Diabetes Mother Diabetes Maternal Grandmother Coronary Artery Disease Maternal Grandmother Thyroid Maternal Grandmother Cancer Paternal Grandfather lung-smoker Coronary Artery Disease Paternal Grandfather Breast Cancer Paternal Aunt Social History Tobacco Use Smoking status: Never Smokeless tobacco: Never Vaping Use Vaping Use: Never used Substance Use Topics Alcohol use: Yes Comment: Occasionally Drug use: No Past medical history, appointments, medications, allergies reviewed. Pertinent Lab/Diagnostic Studies are reviewed and discussed today Current Outpatient Medications: doxycycline 20 mg tablet spironolactone (ALDACTONE) 50 mg tablet FLUoxetine (PROZAC) 10 mg capsule SOOLANTRA 1 % Azelaic Acid 15 % gel Review of Systems CONSTITUTIONAL: No fevers, chills night sweats, unintended weight loss CARDIOVASCULAR: No chest pain, dyspnea, palpitations, orthopnea, PND, ankle edema. PULM: No dyspnea, unexplained cough. GI: No dysphagia/odynophagia, problematic reflux, constipation, diarrhea, changes in stool habits, hematochezia, melena. : No new urinary complaints, including dysuria, gross hematuria or pyuria. NEURO: No new balance problems, peripheral weakness/paresthesias or numbness of concern. Physical Exam BP 110/72 (BP Site: Left Arm, BP Position: Sitting, BP Cuff Size: Regular Adult) Pulse 98 Temp 36.8 C (98.2 F) Resp 12 Ht 161.3 cm (5' 3.5) Wt 62.6 kg (138 lb) LMP 07/21/2022 (Exact Date) SpO2 99% BMI 24.06 kg/m General appearance: Well appearing, alert, in no acute distress, well nourished. Skin: Skin color, texture, turgor normal, no suspicious rashes or lesions Head: Normocephalic, no masses, lesions, tenderness or abnormalities Eyes: Anicteric sclera. Pupils are equally round and reactive to light. Extraocular movements are intact. Lungs: Lungs clear to auscultation. No wheezing, rhonchi, rales Heart: RRR without murmur, gallop, or rubs. Extremities: No deformities, edema, skin discoloration, clubbing or cyanosis. Good capillary refill. ASSESSMENT/PLAN: 1. Anxiety and depression - ICD9: 300.00, 311, ICD10: F41.9, F32.A (primary diagnosis) Increased prozac dose. 2. Acne, unspecified acne type - ICD9: 706.1, ICD10: L70.9 To cont the doxy and spironolactone Yara Oropeza MD documented in this encounterMorrow County [facility] History of Present illness Narrative* Yara Oropeza MD - 06/18/2022 3:56 PM EST Reason for Visit Patient presents with: Yearly Exam: annual Tova Brennan is a 31 year old female who presents here today for Above Complaints. Health Maintenance PNEUMOCOCCAL(1 - PCV) SPIROMETRY HPV TESTING ANNUAL PCP TEAM CHRONIC DISEASE VISIT HPI MSK: Recent back pain since Tuesday. Left lower back pain. Localized sharp pain. 09/29. Limited flexion and twisting movement. Denies being tender to touch. Denies trauma and or injury. Uses ibuprofen as needed with relief. Diet: Eats 2-3 meals a day with occasionally snacking. Denies following any specific diet plan. Eats fruits, vegetables, chicken, rice, and pasta. Occasionally eats fast food. Plan to drink more fluids. Enjoys her sweets. Sleep: Sleeping okay. Feels un-rested at times. Averages 6 hours a night. Stress: Denies major stressors, however minor changes with work, weight gain, moving. Exercise: Currently not exercising d/t recent adjustments, however plans to start exercising again in the near future with walking, [employer], yoga, and running. Struggling with weight gain around the stomach. She has been very anxious recently. , she is not walking like she was. Drives almost an hour. Acne: Gradually worsening with stress. Currently uses spirolactone, doxy, soolantra and azelaic acid. Derm: Sporadic eczema like rash via chest, back, left axilla and posterior right ear - itchy- Stills sees counseling once a month. She has been anxious recently. Been emotional, has periods of spontaneous. Crying, with work, moving and relationship stress, feels overwhelmed a lot lately. No problem-specific Assessment & Plan notes found for this encounter. PAST MEDICAL HISTORY Diagnosis Date Adjustment disorder with depressed mood 07/15/2008 Allergic rhinitis 11/29/2011 Asthma 11/29/2011 Excessive or frequent menstruation Heavy periods Generalized anxiety disorder 07/25/2015 see scanned documents Hemorrhagic ovarian cyst 07/30/2020 right ovary Major depressive disorder 07/25/2015 See scanned documents Other acne PAST SURGICAL HISTORY Procedure Laterality Date NONE FAMILY HISTORY Problem Relation Age of Onset Diabetes Mother Diabetes Maternal Grandmother Coronary Artery Disease Maternal Grandmother Thyroid Maternal Grandmother Cancer Paternal Grandfather lung-smoker Coronary Artery Disease Paternal Grandfather Breast Cancer Paternal Aunt Social History Tobacco Use Smoking status: Never Smokeless tobacco: Never Vaping Use Vaping Use: Never used Substance Use Topics Alcohol use: Yes Comment: Occasionally Drug use: No Past medical history, appointments, medications, allergies reviewed. Pertinent Lab/Diagnostic Studies are reviewed and discussed today Current Outpatient Medications: multivitamin tablet Etonogestrel-Ethinyl Estradiol (NUVARING) 0.12-0.015 mg/24 hr vaginal ring SOOLANTRA 1 % doxycycline 20 mg tablet Azelaic Acid 15 % gel spironolactone (ALDACTONE) 50 mg tablet Review of Systems CONSTITUTIONAL: No fevers, chills night sweats, unintended weight loss CARDIOVASCULAR: No chest pain, dyspnea, palpitations, orthopnea, PND, ankle edema. PULM: No dyspnea, unexplained cough. GI: No dysphagia/odynophagia, problematic reflux, constipation, diarrhea, changes in stool habits, hematochezia, melena. : No new urinary complaints, including dysuria, gross hematuria or pyuria. NEURO: No new balance problems, peripheral weakness/paresthesias or numbness of concern. Physical Exam BP 118/70 (BP Site: Left Arm, BP Position: Sitting, BP Cuff Size: Large Adult) Pulse 95 Temp 37.1 C (98.7 F) Resp 12 Ht 161.3 cm (5' 3.5) Wt 62.6 kg (138 lb) LMP 03/16/2021 (Exact Date) SpO2 100% BMI 24.06 kg/m General appearance: Well appearing, alert, in no acute distress, well-hydrated, well nourished. Skin: Skin color, texture, turgor normal, no suspicious rashes or lesions Head: Normocephalic, no masses, lesions, tenderness or abnormalities Eyes: Anicteric sclera. Pupils are equally round and reactive to light. Extraocular movements are intact. Ears: External ears normal, canals clear Nose/Sinuses: Nares normal, septum midline, mucosa normal, no drainage or sinus tenderness Oropharynx: Lips, mucosa, and tongue normal, teeth and gums normal, oropharynx normal Neck: Supple, no adenopathy; thyroid symmetric, normal size, no bruits Back: Normal exam Lungs: Lungs clear to auscultation. No wheezing, rhonchi, rales Heart: RRR without murmur, gallop, or rubs. No ectopy Abdomen: Normal abdominal exam, Abdomen soft, non-tender. Bowel sounds normal. No masses, organomegaly Extremities: No deformities, edema, skin discoloration, clubbing or cyanosis. Good capillary refill. Musculoskeletal: No joint swelling, deformity, or tenderness Peripheral pulses: Normal Neuro: Gait normal. Reflexes normal and symmetric. Sensation grossly intact. ASSESSMENT/PLAN: 1. Annual physical exam - ICD9: V70.0, ICD10: Z00.00 (primary diagnosis) - Counseled on healthy diet and regular exercise - Calcium intake with supplements or by diet of 1000 mg/day for under 50, 1200- 1500 mg/day for 50+ 2. Anxiety and depression - ICD9: 300.00, 311, ICD10: F41.9, F32.A Trial of fluoxetine. Discussed SSRI's in detail, their side effects including weight gain in some, sexual side effects, that it needs to build up in their system and usually in the 3rd week they will start feeling the effects. Also discussed that each SSRI may affect differently , might have to try a couple before finding out a perfect fit. 3. Acne, unspecified acne type - ICD9: 706.1, ICD10: L70.9 Refill her medications 4. Low back pain, unspecified back pain laterality, unspecified chronicity, unspecified whether sciatica present - ICD9: 724.2, ICD10: M54.50 We discussed cysts in the past and possible etiology and for her to see [employer] for this Yara Oropeza MD * Yara Oropeza MD - 06/18/2022 3:49 PM EST Tova Brennan is a 31 year old female .Patient presents with: Yearly Exam: annual Patient is overall doing well. Recently changed jobs in January. MSK: Recent back pain since Tuesday. Left lower back pain. Localized sharp pain. 09/29. Limited flexion and twisting movement. Denies being tender to touch. Denies trauma and or injury. Uses ibuprofen as needed with relief. Diet: Eats 2-3 meals a day with occasionally snacking. Denies following any specific diet plan. Eats fruits, vegetables, chicken, rice, and pasta. Occasionally eats fast food. Plan to drink more fluids. Enjoys her sweets. Sleep: Sleeping okay. Feels un-rested at times. Averages 6 hours a night. Stress: Denies major stressors, however minor changes with work, weight gain, moving. Exercise: Currently not exercising d/t recent adjustments, however plans to start exercising again in the near future with walking, [employer], yoga, and running. Struggling with weight gain around the stomach. She has been very anxious recently. , she is not walking like she was. Drives almost an hour. Acne: Gradually worsening with stress. Currently uses spirolactone, doxy, soolantra and azelaic acid. Derm: Sporadic eczema like rash via chest, back, left axilla and posterior right ear - itchy- Stills sees counseling once a month. She has been anxious recently. Been emotional, has periods of spontaneous. Crying, with work, moving and relationship stress, feels overwhelmed a lot lately. PAST MEDICAL HISTORY Diagnosis Date Adjustment disorder with depressed mood 07/15/2008 Allergic rhinitis 11/29/2011 Asthma 11/29/2011 Excessive or frequent menstruation Heavy periods Generalized anxiety disorder 07/25/2015 see scanned documents Hemorrhagic ovarian cyst 07/30/2020 right ovary Major depressive disorder 07/25/2015 See scanned documents Other acne PAST SURGICAL HISTORY Procedure Laterality Date NONE Current Outpatient Medications Medication Sig multivitamin tablet Take 1 tablet by mouth once daily. Etonogestrel-Ethinyl Estradiol (NUVARING) 0.12-0.015 mg/24 hr vaginal ring Use 1 Each vaginally as directed. SOOLANTRA 1 % doxycycline 20 mg tablet Azelaic Acid 15 % gel Apply to the affected areas once daily spironolactone (ALDACTONE) 50 mg tablet Take 1 tablet by mouth once daily. No current facility-administered medications for this visit. ALLERGIES No Known Allergies Social History Tobacco Use Smoking status: Never Smokeless tobacco: Never Vaping Use Vaping Use: Never used Substance Use Topics Alcohol use: Yes Comment: Occasionally Drug use: No FAMILY HISTORY Problem Relation Age of Onset Diabetes Mother Diabetes Maternal Grandmother Coronary Artery Disease Maternal Grandmother Thyroid Maternal Grandmother Cancer Paternal Grandfather lung-smoker Coronary Artery Disease Paternal Grandfather Breast Cancer Paternal Aunt Review of Systems CONSTITUTIONAL: No fevers, chills, nightsweats, unintended weight loss HEENT: Denies frequent or severe heaches, nasal congestion/sinus symptoms, problematic allergy problems. EYES: No diplopia or blurry vision. CARDIOVASCULAR: No chest pain, dyspnea, palpitations, orthopnea, PND, ankle edema. PULM: No dyspnea, unexplained cough. GI: No dysphagia/odynophagia, problematic reflux, constipation, diarrhea, changes in stool habits, hematochezia, melena. : No new urinary complaints, including dysuria, gross hematuria or pyuria. NEURO: No new balance problems, peripheral weakness/paresthesias or numbness of concern. MUSC-SKEL: No new joint pain, swelling, or erythema. PSY: No concerns regarding depression, anxiety or panic. INTEGUMENTARY: Sporadic eczema like rash via chest, back, left axilla and posterior right ear - itchy. Denies new or changing mole, new growth. Physical Exam BP 128/74 (BP Site: Left Arm, BP Position: Sitting, BP Cuff Size: Regular Adult) Pulse 102 Temp36.3 C (97.4 F) Resp 12 Ht 161.3 cm (5' 3.5) Wt 59.9 kg (132 lb) LMP 03/16/2021 (Exact Date) SpO2 100% BMI 23.02 kg/m General appearance: Well appearing, alert, in no acute distress, well-hydrated, well nourished. Skin: Skin color, texture, turgor normal, no suspicious rashes or lesions Head: Normocephalic, no masses, lesions, tenderness or abnormalities Eyes: Anicteric sclera. Pupils are equally round and reactive to light. Extraocular movements are intact. Ears: External ears normal, canals clear Nose/Sinuses: Nares normal, septum midline, mucosa normal, no drainage or sinus tenderness Oropharynx: Lips, mucosa, and tongue normal, teeth and gums normal, oropharynx normal Neck: Supple, no adenopathy; thyroid symmetric, normal size, no bruits Back: Normal exam Lungs: Lungs clear to auscultation. No wheezing, rhonchi, rales Heart: RRR without murmur, gallop, or rubs. No ectopy Abdomen: Normal abdominal exam, Abdomen soft, non-tender. Bowel sounds normal. No masses, organomegaly Extremities: No deformities, edema, skin discoloration, clubbing or cyanosis. Good capillary refill. Musculoskeletal: No joint swelling, deformity, or tenderness Peripheral pulses: Normal Neuro: Gait normal. Reflexes normal and symmetric. Sensation grossly intact. Gasper Chamorro [facility] History of Present illness Narrative* Priscilla Gaspar LPN - 10/26/2021 2:28 PM EDT Pt unable to complete today d/t will be leaving town for the week. Rescheduled appt. Priscilla Gaspar LPN documented [facility] History of Present illness Narrative* Juan Jose Santiago APRN.BELA - 10/25/2021 12:04 PM EDT Images from the original note were not included. Subjective HPI HPI Tova Brennan is a 31 year old female who presents today for CC of itchy rash, all over. This started 5 days ago. Has tried otc medication for relief. Symptoms are worsened by nothing. Risk factors hx of PI rash. Denies possibility of being . .Patient presents with: poison tree: all over x 5 days PAST MEDICAL HISTORY Diagnosis Date Adjustment disorder with depressed mood 07/15/2008 Allergic rhinitis 11/29/2011 Asthma 11/29/2011 Excessive or frequent menstruation Heavy periods Generalized anxiety disorder 07/25/2015 see scanned documents Hemorrhagic ovarian cyst 07/30/2020 right ovary Major depressive disorder 07/25/2015 See scanned documents Other acne PAST SURGICAL HISTORY Procedure Laterality Date NONE ALLERGIES Patient has no known allergies. MEDICATIONS multivitamin tablet Take 1 tablet by mouth once daily. Etonogestrel-Ethinyl Estradiol (NUVARING) 0.12-0.015 mg/24 hr vaginal ring Use 1 Each vaginally as directed. SOOLANTRA 1 % doxycycline 20 mg tablet Azelaic Acid 15 % gel Apply to the affected areas once daily spironolactone (ALDACTONE) 50 mg tablet Take 1 tablet by mouth once daily. predniSONE (DELTASONE) 10 mg tablet Take 4 tabs daily x 3 days, then 3 tabs x 3 days, 2 tabs x 3 days, then 1 tab x3 days with food. triamcinolone acetonide (KENALOG) 0.1 % cream Apply 1 application to affected area three times daily for 10 days. Apply sparingly to area for rash/itching. FAMILY HISTORY Problem Relation Age of Onset Diabetes Mother Diabetes Maternal Grandmother Coronary Artery Disease Maternal Grandmother Thyroid Maternal Grandmother Cancer Paternal Grandfather lung-smoker Coronary Artery Disease Paternal Grandfather Breast Cancer Paternal Aunt Social History Tobacco Use Smoking status: Never Smoker Smokeless tobacco: Never Used Vaping Use Vaping Use: Never used Substance Use Topics Alcohol use: Yes Comment: Occasionally Drug use: No Review of Systems Constitutional: Negative for chills and fever. Skin: Positive for itching and rash (Positive for clear, watery drainage. Denies warmth and purulent drainage. ). Objective Blood pressure 112/78, pulse 83, temperature 36.9 C (98.5 F), temperature source Tympanic, resp. rate 18, weight 60.1 kg (132 lb 9.6 oz), last menstrual period 03/16/2021, SpO2 99 %. Physical Exam Constitutional: General: She is not in acute distress. Appearance: She is not toxic-appearing or diaphoretic. HENT: Head: Normocephalic and atraumatic. Skin: General: Skin is warm and dry. Findings: Rash present. Rash is vesicular (distribution linear ). Neurological: Mental Status: She is alert and oriented to person, place, and time. ASSESSMENT/PLAN: 1. Rhus dermatitis - ICD9: 692.6, ICD10: L25.5 - Oral Steriod tx -Prednisone taper - Topical steriod tx with Rx for steriod cream/ointment- see orders - discussed skin care of rash - follow up if symptoms persist or worsen. - PREDNISONE 10 MG TABLET - TRIAMCINOLONE ACETONIDE 0.1 % TOPICAL CREAM Agrees to plan Juan Jose Santiago APRN.BELA documented in [facility] Miscellaneous Notes* Telephone Encounter - Priscilla Gaspar LPN - 10/15/2021 11:45 AM EDT Patient scheduled for nurse visit 10/26/21 to receive PPD administration. Please place order at this time. Priscilla Gaspar LPN documented in this encounter[address] History of Past illness Narrative* Problem Noted Date Resolved Date Cough 08/07/2007 08/18/2016 documented as of this encounter (statuses as of 09/24/2021) [address] History of Past illness Narrative* Problem Noted Date Resolved Date Cough 08/07/2007 08/18/2016 documented as of this encounter (statuses as of 10/15/2021) [address] History of Past illness Narrative* Problem Noted Date Resolved Date Cough 08/07/2007 08/18/2016 documented as of this encounter (statuses as of 10/25/2021) [address] History of Past illness Narrative* Problem Noted Date Resolved Date Cough 08/07/2007 08/18/2016 documented as of this encounter (statuses as of 10/26/2021) [address] History of Past illness Narrative* Problem Noted Date Resolved Date Cough 08/07/2007 08/18/2016 documented as of this encounter (statuses as of 06/18/2022) [address] History of Past illness Narrative* Problem Noted Date Resolved Date Cough 08/07/2007 08/18/2016 documented as of this encounter (statuses as of 07/16/2022) [place] [address] History of Past illness Narrative* Problem Noted Date Resolved Date Cough 08/07/2007 08/18/2016 documented as of this encounter (statuses as of 07/31/2022) [address] History of Past illness Narrative* Problem Noted Date Resolved Date Cough 08/07/2007 08/18/2016 documented as of this encounter (statuses as of 10/02/2022) [place] [address] History of Past illness Narrative* Problem Noted Date Diagnosed Date Resolved Date Cough 08/07/2007 08/18/2016 documented as of this encounter (statuses as of 12/29/2022) [place] [address] History of Past illness Narrative* Problem Noted Date Diagnosed Date Resolved Date Cough 08/07/2007 08/18/2016 documented as of this encounter (statuses as of 07/22/2023) [address] History of Past illness Narrative* Problem Noted Date Diagnosed Date Resolved Date Cough 08/07/2007 08/18/2016 documented as of this encounter (statuses as of 07/29/2023) [address] History of Past illness Narrative* Problem Noted Date Diagnosed Date Resolved Date Cough 08/07/2007 08/18/2016 documented as of this encounter (statuses as of 08/06/2023) [address] History of Past illness Narrative* Problem Noted Date Diagnosed Date Resolved Date Cough 08/07/2007 08/18/2016 documented as of this encounter (statuses as of 08/08/2023) [place] [address] History of Past illness Narrative* Problem Noted Date Diagnosed Date Resolved Date Cough 08/07/2007 08/18/2016 documented as of this encounter (statuses as of 08/08/2023) [facility] + Plan note No data available for this section [facility] Evaluation note* Diagnosis Screening examination for pulmonary tuberculosis- Primary [facility] Diagnosis Rhus dermatitis- Primary Contact dermatitis and other eczema due to plants (except food) [facility]* Diagnosis APPOINTMENT CANCELLED- Primary [facility] Annual physical exam- Primary Routine general medical examination at a health care facility Anxiety and depression Dysthymic disorder Acne, unspecified acne type Low back pain, unspecified back pain laterality, unspecified chronicity, unspecified whether sciatica present [facility]* Diagnosis Medication management Encounter for long-term (current) use of other medications [facility]* Diagnosis Anxiety and depression- Primary Dysthymic disorder Acne, unspecified acne type [facility]* Diagnosis Anxiety and depression- Primary Dysthymic disorder Acne, unspecified acne type Viral illness Unspecified viral infection, in conditions classified elsewhere and of unspecified site [facility]* Diagnosis Paronychia of finger of right hand- Primary [facility]* Diagnosis Intermenstrual spotting- Primary Metrorrhagia Pelvic pain in female Unspecified symptom associated with female genital organs History of HPV infection Personal history of other infectious and parasitic disease [facility]* Diagnosis Medication management Encounter for long-term (current) use of other medications [facility]* Diagnosis Intermenstrual spotting Metrorrhagia Pelvic pain in female Unspecified symptom associated with female genital organs [facility]* Diagnosis Cyst of ovary, unspecified laterality- Primary [facility]* Diagnosis Anxiety and depression- Primary Dysthymic disorder Other fatigue Abnormal menses Unspecified disorder of menstruation and other abnormal bleeding from female genital tract Acne, unspecified acne type [facility]* Diagnosis Cyst of ovary, unspecified laterality [facility]* Diagnosis Ovarian cyst, left- Primary Other and unspecified ovarian cyst [facility]* Diagnosis Contact dermatitis due to plant- Primary Contact dermatitis and other eczema due to plants (except food) [facility]* Diagnosis Viral illness- Primary Unspecified viral infection, in conditions classified elsewhere and of unspecified site [facility]* Diagnosis Rash- Primary Rash and other nonspecific skin eruption [facility]* Diagnosis Medication management Encounter for long-term (current) use of other medications [facility]* Diagnosis Anxiety and depression- Primary Dysthymic disorder [facility]* Diagnosis Current moderate episode of major depressive disorder without prior episode (HCC)- Primary Acute upper respiratory infection Acute upper respiratory infections of unspecified site Allergic rhinitis, unspecified seasonality, unspecified trigger Generalized anxiety disorder documented in this encounter [facility] for referral (narrative)* Diagnostic Procedure Only (Routine) - Pending Review Specialty Diagnoses / Procedures Referred By Contac t Referred To Contact [facility] Diagnoses Intermenstrual spotting Pelvic pain in female Procedures US FEMALE PELVIS TRANSVAG US TRANSVAGINAL Virginia Ferrer MD [address] [place] [address] [facility] [address] Referral ID Status Reason Start Date Expiration Date Visits Requested Visits Authorized [id number] Pending Review Auto-Generat ed Referral 07/22/2023 08/20/2024 1 1 * Diagnostic Procedure Only (Routine) - Pending Review Specialty Diagnoses / Procedures Referred By Contac t Referred To Contact [facility] Diagnoses Intermenstrual spotting Pelvic pain in female Procedures PELVIC US I US PELVIC NONOBSTETRIC REAL-TIME IMAGE COMPLETE Virginia Ferrer MD [address] [place] [place] [address] [address] Referral ID Status Reason Start Date Expiration Date Visits Requested Visits Authorized [id number] Pending Review Auto-Generat ed Referral 07/22/2023 07/21/2024 1 1 [facility] for referral (narrative)* Diagnostic Procedure Only (Routine) - Pending Review Specialty Diagnoses / Procedures Referred By Contac t Referred To Contact [facility] Diagnoses Cyst of ovary, unspecified laterality Procedures PELVIC US I US PELVIC NONOBSTETRIC REAL-TIME IMAGE COMPLETE Virginia Ferrer MD [address] [place] [address] [facility] [address] [place] [address] Referral ID Status Reason Start Date Expiration Date Visits Requested Visits Authorized [id number] Pending Review Auto-Generat ed Referral 09/19/2023 08/07/2024 1 1 [facility] Diagnostic Procedure Only (Routine) - Pending Review Specialty Diagnoses / Procedures Referred By Contchante segura Referred To Contact [facility] Diagnoses Ovarian cyst, left Procedures PELVIC US WHI US PELVIC NONOBSTETRIC REAL-TIME IMAGE COMPLETE Virginia Ferrer MD [address] [place] [address] [facility] [address] [place] [address] Referral ID Status Reason Start Date Expiration Date Visits Requested Visits Authorized [id number] Pending Review Auto-Generat ed Referral 11/10/2023 11/09/2024 1 1 [facility] Summary Purpose Family History No Family History Records Found No data available for this section No Family History Records FoundNo Family History Records Found Advance Directives No Advanced Directives Records FoundNo Advanced Directives Records FoundNo Advanced Directives Records Found Medications Administered Section Administered Medications Medication Order MAR Action Action Date Dose Rate Site PPD (Mantoux) Deferred - Postponed 10/26/2021 Additional Source Comments INFORMATION SOURCE (unrecogn ized section and content) DATE CREATED AUTHOR 07/22/2018 [facility] DATE CREATED AUTHOR AUTHOR'S ORGANIZ ATION 02/24/2025 [facility] DATE CREATED AUTHOR AUTHOR'S ORGANIZ ATION 04/02/2025 [facility] Source Comments (unrecognize d section and content) In the event this informatio n is protected by the Federal Confidentiality of Alcohol and Drug Abuse Patient Records regulations: The Federal rules restrict any use of the information to criminally investigate or prosecute any alcohol or drug abuse patient.[facility] the event this information is protected by the Federal Confidentiality of Alcohol and Drug Abuse Patient Records regulations: The Federal rules restrict any use of the information to criminally investigate or prosecute any alcohol or drug abuse patient.[facility] the event this information is protected by the Federal Confidentiality of Alcohol and Drug Abuse Patient Records regulations: The Federal rules restrict any use of the information to criminally investigate or prosecute any alcohol or drug abuse patient.[facility] the event this information is protected by the Federal Confidentiality of Alcohol and Drug Abuse Patient Records regulations: The Federal rules restrict any use of the information to criminally investigate or prosecute any alcohol or drug abuse patient.[facility] the event this information is protected by the Federal Confidentiality of Alcohol and Drug Abuse Patient Records regulations: The Federal rules restrict any use of the information to criminally investigate or prosecute any alcohol or drug abuse patient.[facility] the event this information is protected by the Federal Confidentiality of Alcohol and Drug Abuse Patient Records regulations: The Federal rules restrict any use of the information to criminally investigate or prosecute any alcohol or drug abuse patient.[facility] the event this information is protected by the Federal Confidentiality of Alcohol and Drug Abuse Patient Records regulations: The Federal rules restrict any use of the information to criminally investigate or prosecute any alcohol or drug abuse patient.[facility] the event this information is protected by the Federal Confidentiality of Alcohol and Drug Abuse Patient Records regulations: The Federal rules restrict any use of the information to criminally investigate or prosecute any alcohol or drug abuse patient.[facility] the event this information is protected by the Federal Confidentiality of Alcohol and Drug Abuse Patient Records regulations: The Federal rules restrict any use of the information to criminally investigate or prosecute any alcohol or drug abuse patient.[facility] the event this information is protected by the Federal Confidentiality of Alcohol and Drug Abuse Patient Records regulations: The Federal rules restrict any use of the information to criminally investigate or prosecute any alcohol or drug abuse patient.[facility]In the event this information is protected by the Federal Confidentiality of Alcohol and Drug Abuse Patient Records regulations: The Federal rules restrict any use of the information to criminally investigate or prosecute any alcohol or drug abuse patient.[facility] HospitalIn the event this information is protected by the Federal Confidentiality of Alcohol and Drug Abuse Patient Records regulations: The Federal rules restrict any use of the information to criminally investigate or prosecute any alcohol or drug abuse patient.[facility] HospitalIn the event this information is protected by the Federal Confidentiality of Alcohol and Drug Abuse Patient Records regulations: The Federal rules restrict any use of the information to criminally investigate or prosecute any alcohol or drug abuse patient.[facility] HospitalIn the event this information is protected by the Federal Confidentiality of Alcohol and Drug Abuse Patient Records regulations: The Federal rules restrict any use of the information to criminally investigate or prosecute any alcohol or drug abuse patient.[facility] HospitalIn the event this information is protected by the Federal Confidentiality of Alcohol and Drug Abuse Patient Records regulations: The Federal rules restrict any use of the information to criminally investigate or prosecute any alcohol or drug abuse patient.[facility] HospitalIn the event this information is protected by the Federal Confidentiality of Alcohol and Drug Abuse Patient Records regulations: The Federal rules restrict any use of the information to criminally investigate or prosecute any alcohol or drug abuse patient.[facility] HospitalIn the event this information is protected by the Federal Confidentiality of Alcohol and Drug Abuse Patient Records regulations: The Federal rules restrict any use of the information to criminally investigate or prosecute any alcohol or drug abuse patient.[facility] HospitalIn the event this information is protected by the Federal Confidentiality of Alcohol and Drug Abuse Patient Records regulations: The Federal rules restrict any use of the information to criminally investigate or prosecute any alcohol or drug abuse patient.[facility] HospitalIn the event this information is protected by the Federal Confidentiality of Alcohol and Drug Abuse Patient Records regulations: The Federal rules restrict any use of the information to criminally investigate or prosecute any alcohol or drug abuse patient.[facility] HospitalIn the event this information is protected by the Federal Confidentiality of Alcohol and Drug Abuse Patient Records regulations: The Federal rules restrict any use of the information to criminally investigate or prosecute any alcohol or drug abuse patient.[facility] HospitalIn the event this information is protected by the Federal Confidentiality of Alcohol and Drug Abuse Patient Records regulations: The Federal rules restrict any use of the information to criminally investigate or prosecute any alcohol or drug abuse patient.[facility] HospitalIn the event this information is protected by the Federal Confidentiality of Alcohol and Drug Abuse Patient Records regulations: The Federal rules restrict any use of the information to criminally investigate or prosecute any alcohol or drug abuse patient.[facility] Care Teams (unrecognized sec tion and content) Shipping Specialist Relationship Specialty Start Date End Date Yara Oropeza MD [address] [place], [place] [id number] PCP - General Internal Medicine 04/03/21 Shipping Specialist Relationship Specialty Start Date End Date Yara Oropeza MD [address] [place] [address] PCP - General Internal Medicine 04/03/21 Shipping Specialist Relationship Specialty Start Date End Date Yara Oropeza MD [address] [place] [address] PCP - General Internal Medicine 04/03/21 Shipping Specialist Relationship Specialty Start Date End Date Yara Oropeza MD [address] [place] [address] PCP - General Internal Medicine 04/03/21 Shipping Specialist Relationship Specialty Start Date End Date Yara Oropeza MD [address] [place] [address] PCP - General Internal Medicine 04/03/21 Shipping Specialist Relationship Specialty Start Date End Date Yara Oropeza MD [address] [place] [address] PCP - General Internal Medicine 04/03/21 Shipping Specialist Relationship Specialty Start Date End Date Yara Oropeza MD [address] [place] [address] PCP - General Internal Medicine 04/03/21 Shipping Specialist Relationship Specialty Start Date End Date Yara Oropeza MD [address] [place] [address] PCP - General Internal Medicine 04/03/21 Shipping Specialist Relationship Specialty Start Date End Date Yara Oropeza MD [address] [place] [address] PCP - General Internal Medicine 04/03/21 Shipping Specialist Relationship Specialty Start Date End Date Yara Oropeza MD [address] [place] [address] PCP - General Internal Medicine 04/03/21 Shipping Specialist Relationship Specialty Start Date End Date Yara Oropeza MD [address] [place] [address] PCP - General Internal Medicine 04/03/21 Shipping Specialist Relationship Specialty Start Date End Date Yara Oropeza MD [address] [place] [address] PCP - General Internal Medicine 04/03/21 Shipping Specialist Relationship Specialty Start Date End Date Yara Oroepza MD [address] [place] [address] PCP - General Internal Medicine 04/03/21 Shipping Specialist Relationship Specialty Start Date End Date Yara Oropeza MD [address] [place] [address] PCP - General Internal Medicine 04/03/21 Shipping Specialist Relationship Specialty Start Date End Date Yara Oropeza MD [address] [place] [address] PCP - General Internal Medicine 04/03/21 Shipping Specialist Relationship Specialty Start Date End Date Yara Oropeza MD [address] [place] [address] PCP - General Internal Medicine 04/03/21 Shipping Specialist Relationship Specialty Start Date End Date Yara Oropeza MD [address] [place] [address] PCP - General Internal Medicine 04/03/21 Shipping Specialist Relationship Specialty Start Date End Date Yara Oropeza MD [address] [place] [address] PCP - General Internal Medicine 04/03/21 Azalea Infante PA-C [address] [place] [address] Activity Assistant Family Medicine 04/29/24 Opal Camp APRN.SENIOR SQL DATABASE DEVELOPER [address] [place] [address] [facility] Internal Medicine 04/29/24 Janet Lewis PA-C [address] [place], [place] [id number] [facility] 04/29/24 Shipping Specialist Relationship Specialty Start Date End Date Yara Oropeza MD [address] [place], [place] [id number] PCP - General Internal Medicine 04/03/21 Azalea Infante PA-C [address] [place] [address] [facility] 04/29/24 Opal Camp APRN.SENIOR SQL DATABASE DEVELOPER [address] [place], [place] [id number] [facility] Internal [facility] 04/29/24 Janet Lewis PA-C [address] [place], [place] [id number] [facility] 04/29/24 Reason for Visit (unrecogniz ed section and content) Reason Comments Orders Reason Comments poison tree all over x 5 days Reason Comments Imm/Inj Reason Comments Yearly Exam annual Reason Comments Follow Up Reason Comments Follow Up med increase - had a lot of symptoms and patient ill Reason Comments right middle finger infection X 3 days Reason Comments Pelvic Pain Reason Comments Radiology US Specialty Diagnoses / Procedures Referred By Contac t Referred To Contact US IMAGING Diagnoses Intermenstrual spotting Pelvic pain in female Procedures US FEMALE PELVIS TRANSVAG US TRANSVAGINAL Virginia Ferrer MD [address] [place] [address] [place] [address] Referral ID Status Reason Start Date Expiration Date V isits Requested Visits Authorized [id number] Closed Auto-Generate d Referral 07/22/2023 08/20/2024 1 1 Reason Comments Orders Reason Comments Recheck 6 month 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 Diagnoses / Procedures Referred By Contac t Referred To Contact [facility] Diagnoses Cyst of ovary, unspecified laterality Procedures PELVIC US WHI US PELVIC NONOBSTETRIC REAL-TIME IMAGE COMPLETE Virginia Ferrer MD [address] [place] [address] [facility] [address] [place] [address] Referral ID Status Reason Start Date Expiration Date V isits Requested Visits Authorized [id number] Closed Auto-Generate d Referral 09/19/2023 08/07/2024 1 1 Reason Comments Rash itching all over x 6 /16 Reason Comments Nausea Fatigue, body aches, bilat ear pain, fever x 4 days Reason Comments Rash Started on R hip/ fl ank, now widespread x5 days Reason Comments Mental health & weight gain Reason Comments 4 week f/u FOR RECORDS PERTAINING TO PATIENTS WHO ARE OR HAVE BEEN ENROLLED IN A CHEMICAL DEPENDENCY/SUBSTANCEABUSE PROGRAM, SOME INFORMATION MAY BE OMITTED. This clinical summary was aggregated from multiple sources. Caution should be exercised in using it in the provision of clinical care. This summary normalizes information from multiple sources, and as a consequence, information in this document may materially change the coding, format and clinical context of patient data. In addition, data may be omitted in some cases. CLINICAL DECISIONS SHOULD BE BASED ON THE PRIMARY CLINICAL RECORDS. [facility] [employer] [facility]. provides no warranty or guarantee of the accuracy or completeness of information in this document.
[2025-05-01 08:10] LABS: Internal QC Validated? YES +Cl - CLEAR BKGD; Pregnancy, Serum, hCG Quali. NEGATIVE Negative
[2025-05-01 08:14] LABS: Anion Gap 10 (5-15); BUN 14 mg/dL (4-19); BUN/Creat Ratio 18.6 RATIO (10-20); Calcium,Total 8.7 mg/dL (7.6-11.0); Carbon Dioxide 23.7 mmol/L (21.0-32.0); Chloride 104 mmol/L (98-108); Estimated Creatinine Clearance 106.60 ml/min (50-250); Glucose 93 mg/dL (70-99); Potassium 3.8 mmol/L (3.3-5.1)
--- NOTE | 2025-05-01 08:36 | US_ITS ---
PROCEDURE: TRANSVAGINAL NON- N/A REASON FOR EXAM: BLEEDING, RECENT MISCARRIGE TECHNIQUE: Procedure Code: USTVAG Modality: US Procedure: TRANSVAGINAL NON- COMPARISON: None FINDINGS: Measurements: Uterus: 8.5 cm x 5.2 cm x 3.3 cm with a volume of 75.9 mL Endometrial Thickness: 4 mm. It is hyperechoic. Small amount of fluid is seen in the cervical canal. Right Ovary: 4.2 cm x 3.6 cm x 3.3 cm with a volume of 26 mL. Left Ovary: 3.2 cm x 1.3 cm x 1.9 cm with a volume of 4 mL. Uterus: Normal size, myometrial echotexture, and contour. Endometrium: Unremarkable. Small amount of fluid is seen in the endocervical canal. Right ovary: There is a 3.2 cm 3.4 cm 3.2 cm cyst in the right ovary. Left ovary: Normal size and echotexture. Other: No large pelvic mass identified. US/Transvaginal Non- IMPRESSION: Small amount of fluid in the endocervical canal. 3.2 cm 3.4 cm x 3.2 cm right ovarian cyst. Reading Location: [place] [address]
--- NOTE | 2025-05-01 09:18 | ED.RN ---
Assisted Dr Mccabe with vaginal exam.
[2025-05-01 09:24] VITALS: BP 105/61; PULSE 63; RESP 16; O2SAT 100
[2025-05-01 10:24] VITALS: BP 105/61; PULSE 63; RESP 16; TEMP 36.9; O2SAT 100
== END 2025-05-01 10:28 | disposition home or self-care (01) ==
PROVIDERS: Emergency Provider Emergency Medicine; PCP Internal Medicine; Visit Provider Emergency Medicine
DX: N93.9 Abnormal uterine and vaginal bleeding, unspecified (principal)
CPT/HCPCS: 76830; 80048; 84703; 85025; 99283; A4216